=== PATIENT | female | born 1940 | race Caucasian/White ===

== ENCOUNTER 2017-11-11 16:58 | Inpatient (IN) | payer OTHER ==
[~2017-11-11] VITALS: Ht 162.6 cm; Wt 114.4 kg
[~2017-11-11 16:58] MED LIST: AMITRIPTYLINE H25 M2 PO; AMITRIPTYLINE25 MG PO; AMITRIPTYLINE50 MG PO; ASMANEX TW0.22 MG/A1 INH; ATENOLOL100 MG PO; ATENOLOL50 MG PO; CENTRUM SILVER1 EAC3 PO; COMPAZINE PO; COMPAZINE10 M1 PO; COMPAZINE10 MG PO; CYANOCOBAL1000 MCG/2 IM; DULERA 100 MCG/13 GM INH; K-TAB10 MEQ PO; LEVOTHYROXINE0.05 MG PO; LEVOTHYROXINE175 MCG PO; MAGNESIUM OXID400 M1 PO; MAGOX 400241.3 MG PO; POTASSIUM CHLO10 MEQ PO; PRILOSEC OTC20 MG PO; PROAIR HFA0.09 MG/Ac INH; PROCHLORPERAZIN10 M1 PO; SPIRIVA18 MCG INH; TENORMIN50 M1 PO; Tenormin PO; VITAMIN D34000 UNIT PO; ZOFRAN4 M1 SL
[2017-11-11 17:38] LABS: ABSOLUTE BASOPHIL COUNT 0.1 /CUMM (0.0-0.2); ABSOLUTE EOSINOPHIL COUNT 0 /CUMM (0.0-0.7); ABSOLUTE GRANULOCYTE CT 7.7 /CUMM (1.4-6.5); ABSOLUTE LYMPH COUNT 2.1 /CUMM (1.2-3.4); ABSOLUTE MONOCYTE COUNT 0.8 /CUMM (0.10-0.60); BASOPHIL % 0.5 % (0.0-2.0); EOSINOPHIL % 0.1 % (0-5); GRANULOCYTE % 71.7 % (42.2-75.2); MEAN CORPUSCULAR HGB 25.4 PG (27.0-31.0); MEAN CORPUSCULAR HGB CONC 32.7 G/DL (33.0-37.0); MEAN CORPUSCULAR VOLUME 77.9 FL (81.0-99.0); MEAN PLATELET VOLUME 9.2 FL (7.4-10.4); PLATELET COUNT 313 /CUMM (130-400); RBC DISTRIBUTION WIDTH 15.8 % (11.5-14.5); RED BLOOD CELL CT 5.65 /CUMM (4.20-5.40); WHITE BLOOD CELL COUNT 10.7 /CUMM (4.8-10.8)
--- NOTE | 2017-11-11 17:45 | ED AMS/SEIZURE/WEAK/DIZZY ---
History of Present Illness General Chief Complaint: Syncope and Near-Syncope Stated Complaint: BIBA FOR FALL WITH SYNCOPE Source: patient, family, old records, EMS Exam Limitations: no limitations Vital Signs & Intake/Output Vital Signs & Intake/Output Vital Signs Date Time Temp Pulse Resp B/P B/P Pulse O2 O2 Flow FiO2 Mean Ox Delivery Rate 11/11 1822 117 15 107/58 95 Nasal 2.0L Cannula 11/11 1748 95 Room Air Room Air 11/11 1716 96.3 100 20 74/47 93 Room Air Room Air Allergies Coded Allergies: No Known Allergies (11/11/17) Reconcile Medications Amitriptyline HCl 25 MG TABLET 1 TAB PO QPM CYCLICAL VOMITING (Reported) Atenolol (Tenormin) 50 MG TABLET 1.5 TAB PO BID HEART (Reported) Cholecalciferol (Vitamin D3) (Vitamin D3) 4,000 UNIT CAPSULE 1 CAP PO DAILY SUPPLEMENT (Reported) Cyanocobalamin (Vitamin B-12) (Cyanocobalamin Injection) 1,000 MCG/ML VIAL 1 ML IM Q30D SUPPLEMENT (Reported) Levothyroxine Sodium 175 MCG TABLET 1 TAB PO DAILY THYROID (Reported) Magnesium Oxide 400 MG TABLET 1 TAB PO DAILY SUPPLEMENT (Reported) Mometasone/Formoterol (Dulera 100 Mcg/5 Mcg Inhaler) 100 MCG-5 MCG/ACTUATION HFA.AER.AD 1 PUF INH BID SOB (Reported) Multivit-Min/FA/Lycopen/Lutein (Centrum Silver Tablet) 0.4 MG-300 MCG-250 MCG TABLET 1 TAB PO DAILY SUPPLEMENT (Reported) Prochlorperazine Maleate (Compazine) 10 MG TABLET 1 TAB PO TID PRN NAUSEA Tiotropium [place] (Spiriva) 18 MCG CAP.W.DEV 1 CAP INH DAILY SOB (Reported) Triage Note: PT BIBA FROM HOME FOR 2 WITNESSED SYNCOPAL EPISODES BY EMS. PT HAS HX OF CYCLIC VOMITING SYNDROME AND HAS HAD POOR PO INTAKE WITH VOMITING X A COUPLE OF DAYS AND A COUPLE DAYS OF DIARRHEA WELL. DENIES BLOOD IN STOOL. PT ARRIVES, PALE, DIAPHORETIC, A/O X 3 AND HYPOTENSIVE. DENIES ABD PAIN OR NAUSEA AT THIS TIME. INITIALLY FOR EMS, PT HAD HEART RATE OF 160'S AFIB, WHICH THEN CAME DOWN TO 130'S AFTER 500 ML OF NS IV. PT 118 AFIB ON BLADE BALANCER. Triage Nurses Notes Reviewed? yes Onset: Just prior to arrival Duration: day(s):, continues in ED, intermittent Timing: recent history Injury Environment: home Severity: severe Modifying Factors: Improves With: immobilization, rest. Worsens With: movement. LMP (ages 10-50): post menopausal : No Patient currently breastfeeds: No HPI: 1 week prior to admission patient reports recurrence of cyclic vomiting syndrome with associated diarrhea anorexia and progressive weakness. Over several hours prior to admission her weakness became severe and she collapsed 2 times without injury. The second time she loss consciousness for short period of time. She denies fever chills chest pain cough shortness of breath headache dysuria rash bleeding. Past History Travel History Traveled to [place] past 21 day No Medical History Any Pertinent Medical History? see below for history Neurological: NONE EENT: NONE Cardiovascular: TACHY ARRHYTHMIA Respiratory: asthma Gastrointestinal: CYCLIC VOMITING SYNDROME DIVERTICULOSIS Hepatic: cholelithiasis Renal: NONE Musculoskeletal: NONE Psychiatric: NONE Endocrine: hypoparathyroidism, hypothyroidism Blood Disorders: anemia Cancer(s): NONE RESIN MIXER/Reproductive: NONE Other Medical Hx: section x2, hysterectomy, cholecystectomy, gastric bypass. Hypothyroidism, tachy arrhythmia, macular degeneration, cataracts, congenital esotropia, cyclic vomiting syndrome, hypocalcemia, hyperparathyroidism, hiatal hernia, asthma, diverticulosis. Iron deficiency anemia. History of MRSA: No History of VRE: No History of CDIFF: No Tetanus Vaccine: 02/22/14 Surgical History Surgical History: cholecystectomy, , hysterectomy, GASTRIC BYPASS Psychosocial History Who do you live with Spouse Services at Home None What is your primary language Sri [place]ankan Tobacco Use: Never used ETOH Use: denies use Illicit Drug Use: denies illicit drug use Family History Family History, If Any: BROTHER FH: lung cancer FATHER, , Age 60+. FH: CHF (congestive heart failure) FH: diabetes mellitus Hx Contributory? No Review of Systems Review of Systems Constitutional: Reports: see HPI, weakness. EENTM: Reports: no symptoms. Respiratory: Reports: no symptoms. Cardiovascular: Reports: no symptoms. GI: Reports: see HPI, diarrhea, nausea, vomiting. Genitourinary: Reports: no symptoms. Musculoskeletal: Reports: no symptoms. Skin: Reports: no symptoms. Neurological/Psychological: Reports: no symptoms. Hematologic/Endocrine: Reports: no symptoms. Immunologic/Allergic: Reports: no symptoms. All Other Systems: Reviewed and Negative Physical Exam Physical Exam General Appearance: well developed/nourished, alert, awake, moderate distress, obese Head: atraumatic, normal appearance Eyes: Bilateral: normal appearance, PERRL, EOMI. Ears, Nose, Throat: normal pharynx, dry mucous membranes Neck: normal inspection, supple, full range of motion, no midline tenderness Respiratory: normal breath sounds, chest non-tender, no respiratory distress, quiet respiration, lungs clear Cardiovascular: normal peripheral pulses, tachycardia, irregularly irregular, norml femoral pulses equa Peripheral Pulses: 4+ carotid (R), 4+ carotid (L) Gastrointestinal: soft, non-tender, no organomegaly, abnormal bowel sounds Back: normal inspection, normal range of motion, no vertebral tenderness Extremities: normal range of motion, no ligament instability Neurologic/Psych: no motor/sensory deficits, awake, alert, oriented x 3, normal mood/affect, 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 Skin: intact, normal color, warm/dry Lymphatic: no anterior cervical myles Core Measures ACS in differential dx? No CVA/TIA Diagnosis No Sepsis Present: No Sepsis Focused Exam Completed? No Progress Differential Diagnosis: dehydration, electrolyte imbalance Plan of Care: Orders Procedure Date/time Status Clear Liquid Diet 11/12 B Active LACTIC ACID 11/11 2008 Active Patient Data 11/11 1850 Active EKG 11/11 1832 Active OXYGEN SETUP (GEN) 11/11 1826 Active Saline Lock 11/11 182 Active Admit to inpatient 11/11 182 Active Vital Signs 11/11 1827 Active Activity/Ambulation 11/11 182 Active Code Status 11/11 1827 Active TROPONIN LEVEL 11/11 1709 Complete MAGNESIUM 11/11 1709 Complete LIPASE 11/11 1709 Complete LACTIC ACID 11/11 1709 Complete COMPREHENSIVE METABOLIC PANEL 11/11 1709 Complete CBC WITHOUT DIFFERENTIAL 11/11 170 Complete EKG 11/11 1705 Active Current Medications Sig/Roxanne Start time Last Medication Dose Stop Time Status Admin Magnesium Sulfate 1 GM ONCE ONE 11/11 1845 AC (Mag Sulfate in D5) 11/11 2244 Dextrose/Water 100 ML (D5W) Laboratory Tests 11/11/17 1729: Anion Gap 13, Estimated GFR > 60, BUN/Creatinine Ratio 22.9, Glucose 151 H, Lactic Acid 2.7 H, Calcium 8.3 L, Magnesium 1.3 L, Total Bilirubin 0.6, AST 43 H, ALT 54 H, Alkaline Phosphatase 61, Troponin I 0.02, Total Protein 6.5, Albumin 3.4 L, Globulin 3.1, Albumin/Globulin Ratio 1.1, Lipase 54, CBC w Diff NO MAN DIFF REQ, RBC 5.65 H, MCV 77.9 L, MCH 25.4 L, MCHC 32.7 L, RDW 15.8 H, MPV 9.2, Gran % 71.7, Lymphocytes % 20.0 L, Monocytes % 7.7, Eosinophils % 0.1, Basophils % 0.5, Absolute Granulocytes 7.7 H, Absolute Lymphocytes 2.1, Absolute Monocytes 0.8 H, Absolute Eosinophils 0, Absolute Basophils 0.1 Initial ED EKG: AFIB, nonspecific ST T wave chg Prior EKG: changed Rhythm Strip: atrial fibrillation Departure Departure Time of Disposition: 1830 Disposition: STILL A PATIENT Condition: Stable Clinical Impression Primary Impression: Cyclic vomiting syndrome Secondary Impressions: Dehydration, Diarrhea, Hypokalemia, Hypomagnesemia, Lactic acidosis Referrals: Juliet BARRIOS,Gustavo Ruiz (PCP/Family) Departure Forms: Customer Survey General Discharge Information Admission Note Spoke With: Yann Khan MD Documentation of Exam: Documentation of any treatments & extenuating circumstances including Concerns Regarding Discharge (functional status, medication knowledge or non-compliance, living conditions, etc.) that warrant an admission rather than observation: IV hydration advance diet cardiac monitoring electrolyte replacement serial lab exam medication adjustment GI evaluation continuing care discharge planning. Critical Care Note Critical Care Note Critical Care Time: 30-74 min (45)
--- NOTE | 2017-11-11 18:51 | History & Physical ---
Shaquille BARRIOS,[facility] 11/11/17 979: General Information and HPI MD Statement: I have seen and personally examined MORENA VILLEGAS and documented this H&P. The patient is a 76 year old F who presented with a patient stated chief complaint of 2 syncopal episodes. Source of Information: patient, family, old records Exam Limitations: no limitations History of Present Illness: Ms Villegas is a 76-year-old woman with past medical history of hypothyroidism, tachycardia arrhythmias (atrial), cyclic vomiting syndrome, GERD, and iron deficiency anemia who presented to the emergency department on 11/11/2017 after experiencing 3 syncopal episodes. Patient states that since Tuesday11/08/2017 she has been feeling of her baseline. States that she has had abdominal discomfort and episodes of diarrhea. She States that her diahrrhea is likely due to hotdogs which she ate on Tuesday evening. This morning when she she had 4 episodes of diarrhea. Stool was been described as nonbloody and non-mucus. It was after the fourth bowel movement that she had her first syncopal episode. Her who was present at home heard a loud "bang" but was unable to get to the bathroom. EMS was subsequently called and found her on the floor. When attempting to help her stand she was placed her on a bed and while checking vital signs were being checked she had 2 further episodes of syncope. She has not been exposed to any ill contacts or had been exposed to any recent antibiotics. She normally ambulates independently however today feeling weak had to use a walker Patient denied any fever, chills, chest pain, chest discomfort dyspnea on exertion, orthopnea or urinary frequency or discomfort. She also endorsed one episode of vomiting after having tea and toast on 2017. Patient was accompanied with her and son. Son reports that the patient has poor dietary compliance. Patient's primary care physician is Dr. Chung Patient's wireless sales expert is Dr. Sheth. Patient's sack sewer is Dr. Draper Allergies/Medications Allergies: Coded Allergies: No Known Allergies (11/11/17) Home Med list Amitriptyline HCl 25 MG TABLET 1 TAB PO QPM CYCLICAL VOMITING (Reported) Atenolol (Tenormin) 50 MG TABLET 1 TAB PO BID HEART (Reported) Cholecalciferol (Vitamin D3) (Vitamin D3) 4,000 UNIT CAPSULE 1 CAP PO DAILY SUPPLEMENT (Reported) Cyanocobalamin (Vitamin B-12) (Cyanocobalamin Injection) 1,000 MCG/ML VIAL 1 ML IM Q30D SUPPLEMENT (Reported) Levothyroxine Sodium 175 MCG TABLET 1 TAB PO DAILY THYROID (Reported) Magnesium Oxide 400 MG TABLET 1 TAB PO DAILY SUPPLEMENT (Reported) Mometasone/Formoterol (Dulera 100 Mcg/5 Mcg Inhaler) 100 MCG-5 MCG/ACTUATION HFA.AER.AD 1 PUF INH BID SOB (Reported) Multivit-Min/FA/Lycopen/Lutein (Centrum Silver Tablet) 0.4 MG-300 MCG-250 MCG TABLET 1 TAB PO DAILY SUPPLEMENT (Reported) Prochlorperazine Maleate (Compazine) 10 MG TABLET 1 TAB PO TID PRN NAUSEA Tiotropium [place] (Spiriva) 18 MCG CAP.W.DEV 1 CAP INH DAILY SOB (Reported) Compliance With Home Meds: UNKNOWN Past History Travel History Traveled to [place] past 21 day No Medical History Neurological: NONE EENT: NONE Cardiovascular: TACHY ARRHYTHMIA Respiratory: asthma Gastrointestinal: CYCLIC VOMITING SYNDROME DIVERTICULOSIS Hepatic: cholelithiasis Renal: NONE Musculoskeletal: NONE Psychiatric: NONE Endocrine: hypoparathyroidism, hypothyroidism Blood Disorders: anemia Cancer(s): NONE DIRECTOR AMBULATORY/Reproductive: NONE Other Medical Hx: section x2, hysterectomy, cholecystectomy, gastric bypass. Hypothyroidism, tachy arrhythmia, macular degeneration, cataracts, congenital esotropia, cyclic vomiting syndrome, hypocalcemia, hyperparathyroidism, hiatal hernia, asthma, diverticulosis. Iron deficiency anemia. History of MRSA: No History of VRE: No History of CDIFF: No Tetanus Vaccine: 02/22/14 Surgical History Surgical History: cholecystectomy, , hysterectomy, GASTRIC BYPASS Past Family/Social History Family History Relations & Conditions if any BROTHER FH: lung cancer FATHER, , Age 60+. FH: CHF (congestive heart failure) FH: diabetes mellitus Psychosocial History Where do you live? Home Who Do You Live With? spouse, child Services at Home: None Primary Language: Nigerian Smoking Status: Never Smoked ETOH Use: denies use Illicit Drug Use: denies illicit drug use Functional Ability ADLs Independent: dressing, eating, toileting, bathing. Ambulation: independent IADLs Independent: shopping, housework, finances, food prep, telephone, transportation , medication admin. Review of Systems Review of Systems Constitutional: Reports: see HPI. Exam & Diagnostic Data Last 24 Hrs of Vital Signs/I&O Vital Signs Date Time Temp Pulse Resp B/P B/P Pulse O2 O2 Flow FiO2 Mean Ox Delivery Rate 11/11 1822 117 15 107/58 95 Nasal 2.0L Cannula 11/11 1748 95 Room Air Room Air 11/11 1716 96.3 100 20 74/47 93 Room Air Room Air Physical Exam General Appearance Alert, Oriented X3, Cooperative Skin No Rashes Skin Temp/Moisture Exam: Warm/Dry HEENT Mucous Membranes Dry Cardiovascular Normal S1, Normal S2, No Murmurs, Irregularly Irregular Lungs Normal Air Movement, Expiratory crackles noted on left lower lung base Abdomen Normal Bowel Sounds, Soft, No Tenderness Neurological Normal Speech, Strength at 5/5 X4 Ext, Normal Tone, Cranial Nerves 3-12 NL Extremities No Clubbing, No Edema Rectal Guiac Negative Last 24 Hrs of Labs/[place]: Laboratory Tests 11/11/17 1729: Anion Gap 13, Estimated GFR > 60, BUN/Creatinine Ratio 22.9, Glucose 151 H, Lactic Acid 2.7 H, Calcium 8.3 L, Magnesium 1.3 L, Total Bilirubin 0.6, AST 43 H, ALT 54 H, Alkaline Phosphatase 61, Troponin I 0.02, Total Protein 6.5, Albumin 3.4 L, Globulin 3.1, Albumin/Globulin Ratio 1.1, Lipase 54, CBC w Diff NO MAN DIFF REQ, RBC 5.65 H, MCV 77.9 L, MCH 25.4 L, MCHC 32.7 L, RDW 15.8 H, MPV 9.2, Gran % 71.7, Lymphocytes % 20.0 L, Monocytes % 7.7, Eosinophils % 0.1, Basophils % 0.5, Absolute Granulocytes 7.7 H, Absolute Lymphocytes 2.1, Absolute Monocytes 0.8 H, Absolute Eosinophils 0, Absolute Basophils 0.1 Diagnostic Data EKG Results A Fib Rate 111 QTC 489 Assessment/Plan Assessment: Ms Villegas is a 76-year-old woman with past medical history of hypothyroidism, tachycardia arrhythmias (atrial), cyclic vomiting syndrome, GERD, and iron deficiency anemia who presented to the emergency department on 11/11/2017 after experiencing 3 syncopal episodes. She will be admitted to the telemetry service and be managed for the following problems. #Syncopal episode query vasovagal #Hypotension (likely due to GI losses from diarrhea) #New Onset A fib #Acute gastroenteritis #Rule out ACS #Transaminitis related to hypotension #Electrolyte derangements #Lactic acidosis due to hypotension. Admit patient to telemetry. Serial troponins and EKG. Formal cardiology consultation in a.m., admitting resident spoke with Dr. Guerra, questioning weather the patient needs to be anticoagulated given CHADVASC of 4 and what looks like new onset A. fib. IV heparin per PTT protocol for anticoagulation. Will likely be changed to Eliquis prior to discharge. TSH and free T4, Defer to cardiology whether echocardiogram will need to be repeated. Chest x-ray to rule out acute pulmonary pathology. Replete electrolytes to ensure potassium level of 4, magnesium level of 2. Orthostatic vital signs. Continue levothyroxine. Maintain fall precautions. TRC nebs. CBC, BEP, AST, ALT in a.m. If enzymes still remain elevated may consider abdominal ultrasound. PT once patient is more stable. Inform primary care physician and GI in a.m. Heart healthy diet. DVT prophylaxis with ALPS/IV Heparin Patient is DNR/DNI. As Ranked By This Provider Problem List: 1. Vomiting and diarrhea 2. Cyclic vomiting syndrome 3. Ventricular premature beats Core Measures/Misc (02/06) Acute Coronary Syndrome ACS Diagnosis: No Congestive Heart Failure Congestive Heart Failure Diagnosis No Cerebrovascular Accident CVA/TIA Diagnosis: No VTE (View Protocol) VTE Risk Factors Age>40 No Mechanical VTE Prophylaxis d/t N/A MechProphylax Ordered No VTE Pharm Prophylaxis d/t NA PharmProphylax ordered Sepsis (View protocol) Sepsis Present: No If YES complete Sepsis Event Note If YES complete Sepsis Event Note Bill BARRIOS, [facility] 11/12/17 0043: Core Measures/Misc (02/06) Sepsis (View protocol) If YES complete Sepsis Event Note If YES complete Sepsis Event Note Attending MD Review Statement Attending Statement Attending MD Statement: examined this patient, discuss w/resident/PA/TREATING ENGINEER HELPER, agreed w/resident/PA/TREATING ENGINEER HELPER, discussed with family, reviewed images, amended to note Attending Assessment/Plan: 76 yo F with h/o atrial tachycardia, asthma, cyclic vomiting syndrome associated with hypokalemia, hypothyroidism, SHIVA, hyperparathyroidism, gastric bypass, is here for evaluation of 3 day h/o nausea, nonbloody vomiting and wattery nonbloody diarrhea that seem to have been occurred after she ate 'hot dogs'. She felt extremely weak, and had a syncopal episode while in the bathroom. When EMS arrived, patient had 2 more syncopal episodes. Her BP was noted to be hypotensive and was given fluid by EMS. Patient reports poor PO intake, denies recent antibiotic exposure or sick contacts. She denies chest pain, dyspnea or palpitations. With regards to her cyclic vomiting syndrome she has an episode once every 6 months and presentation is almost similar to this, however she rarely if ever has diarrhea, so she attributes her current symptoms to the 'hot dogs'. Vitals: afebrile, HR 100-120's, BP 74/47 --> 107/58 --> 96/68 --> 100/70, sats 97% on 2L. Exam: AAO, right eye poor eyesight due to macular degeneration, dry mucosa, Neck supple, Chest basilar crackles+, Heart S1S2 irregularly irregular, LE: no edema. Labs: no leukocytosis, Na 131, K 3.1, glucose 151, lactic acid 2.7, Mag 1.3, AST 43, ALT 54, trop neg. CXR: unremarkable exam. EKG: atrial fibrillation @ 111, PVC's, Qtc 489. Echo (2017): EF 55%, mild left atrial dilatation. Assessment and plan: 1. Syncopal episode 2. Hypotension 3. Acute gastroenteritis vs probable exacerbation of cyclic vomiting syndrome 4. New onset atrial fibrillation 5. History of atrial tachycardia on atenolol 6. Hypokalemia and hypomagnesemia 7. Transaminitis related to hypotension 8. Lactic acidosis - Admit patient to telemetry. - Watch for arrhythmias - Check orthstats - Patient has a h/o atrial tachycardia which is controlled with atenolol, however today she appears to be in atrial fibrillation of unclear duration. Given her high MISSAEL score, we will anticoagulate with IV heparin per PTT protocol. - IV hydration with potassium supplementation, HR seems to be improving with IV fluids - Resume atenolol when able to - Cardio consult (Dr. Sheth) - Serial EKG and troponin - Obtain echo - Check TSH, free T4, HbA1c - Check urinalysis - Replete electrolytes to keep Mag > 2.0 and K > 4.0 - Recheck BEP at 11 pm to trend electrolyte levels - Trend lactic acid - Clear liquid diet, advance diet as tolerated, anti-emetics - Check stool studies, if persistent diarrhea would obtain CT abd/pelvis - Recheck liver enzymes after adequate hydration. - Resume amitriptyline, synthroid and inhalers - Eventual PT DVT ppx IV heparin. DNR/I.
--- NOTE | 2017-11-11 21:55 | RADIOLOGY REPORT ---
EXAMINATION: XR PORTABLE CHEST CLINICAL INFORMATION: Crackles at lung bases. COMPARISON: Chest x-ray 05/16/2017 TECHNIQUE: Portable frontal view of the chest was obtained. 8:08 PM FINDINGS: Exam is apical lordotic in projection. No significant abnormality is noted involving the heart, lungs, mediastinum, bony thorax or soft tissues. IMPRESSION: Unremarkable examination.
[2017-11-11 23:13] VITALS: BP 116/68
--- NOTE | 2017-11-12 00:44 | Admission Certification ---
Admission Certification Certification Statement - As attending physician, I certify that at the time of - admission, based on clinical presentation, severity of - symptoms, need for further diagnostic testing and - therapeutic interventions, and risk of adverse outcomes - without in-hospital treatment, in my clinical assessment, - this patient requires an acute hospital stay for a minimum - of two nights or longer. I have also considered psychsocial - factors such as support system, advanced age, financial - issues, cognitive issues, and failed out-patient treatments, - past re-admission history, safety of patient, and lack of - compliance as applicable. Specific rationale supporting this admission is: Syncope, New onset atrial fibrillation, hypotension, acute gastroenteritis.
[2017-11-12 02:30] VITALS: BP 106/78
[2017-11-12 02:50] LABS: PTT 42 SEC (25-37)
[2017-11-12 07:04] VITALS: BP 88/60
--- NOTE | 2017-11-12 08:40 | PN- Housestaff ---
JoshArlen Tj Ceballos 11/12/17 0838: Subjective Follow-up For: 1. Syncopal episode 2. Hypotension 3. Acute gastroenteritis vs probable exacerbation of cyclic vomiting syndrome 4. New onset atrial fibrillation 5. History of atrial tachycardia on atenolol 6. Hypokalemia and hypomagnesemia 7. Transaminitis related to hypotension 8. Lactic acidosis Subjective: Patient is pending transfering to ICU. Review of Systems Constitutional: Reports: see HPI. Objective Last 24 Hrs of Vital Signs/I&O Vital Signs Date Time Temp Pulse Resp B/P B/P Pulse O2 O2 Flow FiO2 Mean Ox Delivery Rate 11/12 0835 134 82/50 11/12 0704 97.3 109 18 88/60 98 Room Air 11/12 0230 106/78 11/11 2313 97.4 64 20 116/68 97 11/11 2300 96 Nasal 2.0L Cannula 11/11 2223 100/70 11/11 2212 97.2 105 20 99/63 95 Nasal 2.0L Cannula 11/11 2120 119 20 96/68 97 Nasal 2.0L Cannula 11/11 2016 80/52 11/11 2016 97.7 117 20 83/56 97 Room Air 11/11 2010 97.7 117 20 83/56 11/11 1822 117 15 107/58 95 Nasal 2.0L Cannula 11/11 1748 95 Room Air Room Air 11/11 1716 96.3 100 20 74/47 93 Room Air Room Air Intake & Output 11/12 1600 11/12 0800 11/12 0000 Intake Total 1565 2000 Output Total 225 Balance 1340 2000 Intake, IV 1325 2000 Intake, Oral 240 Number 1 Bowel Movements Output, Urine 225 Patient 111.329 kg Weight Weight Bed scale Measurement Method Physical Exam General Appearance: Alert, Oriented X3, Cooperative, No Acute Distress HEENT: Atraumatic, PERRLA Neck: Supple, No JVD Lungs: Normal Air Movement, ? expiratory crackles noted on left lower lung base Abdomen: Normal Bowel Sounds, Soft, No Tenderness Neurological: Normal Speech, Strength at 5/5 X4 Ext Extremities: No Edema, Normal Pulses, No Tenderness/Swelling Current Medications: Current Medications Sig/Roxanne Start time Last Medication Dose Route Stop Time Status Admin Amitriptyline HCl 25 MG QPM 11/12 2100 AC PO Atenolol 50 MG BID 11/11 2100 AC PO Budesonide/ 2 PUF BID 11/12 0900 AC Formoterol Fumarate INH Budesonide/ 2 PUF BID 11/12 0900 CAN Formoterol Fumarate INH Digoxin 0.5 MG ONCE ONE 11/13 1999 DC IV 11/12 2000 Digoxin 0.25 MG ONCE ONE 11/13 1999 AC IV 11/12 2000 Digoxin 0.25 MG ONCE ONE 11/12 1400 AC IV 11/12 1401 Digoxin 0.5 MG ONCE ONE 11/12 0815 DC 11/12 IV 11/12 0816 0835 Heparin Sodium 25,000 UNIT Q24H 11/11 2030 AC 11/11 (Porcine) IV 205 Sodium Chloride 500 ML Levothyroxine Sodium 0.175 MG DAILY AC 11/12 0700 DC PO Levothyroxine Sodium 0.175 MG DAILY AC 11/12 0700 CAN PO Magnesium Sulfate 1 GM ONCE ONE 11/12 0415 DC 11/12 Dextrose/Water 100 ML IV 11/12 0814 0430 Magnesium Sulfate 1 GM ONCE ONE 11/12 0400 CAN IM 11/12 0401 Magnesium Sulfate 1 GM ONCE ONE 11/11 1845 DC 11/11 Dextrose/Water 100 ML IV 11/11 2244 1912 Potassium Chloride 40 MEQ ONCE ONE 11/12 0900 CAN Dextrose/Water 1,000 ML IV 11/12 1859 Potassium Chloride 40 MEQ ONCE ONE 11/12 0830 CAN IV 11/12 0831 Potassium Chloride 40 MEQ Q10H 11/12 0830 AC 11/12 Dextrose/Sodium 1,000 ML IV 0845 Chloride Potassium Chloride 40 MEQ ONCE ONE 11/12 0800 CAN N/A 1 UNIT IV 11/12 1759 Potassium Chloride 20 MEQ ONCE ONE 11/12 0800 AC 11/12 Dextrose/Sodium 1,000 ML IV 11/12 0859 0816 Chloride Potassium Chloride 40 MEQ ONCE ONE 11/12 0800 DC Dextrose/Water 1,000 ML IV 11/12 1759 Potassium Chloride 40 MEQ ONCE ONE 11/12 0530 DC IV 11/12 0531 Potassium Chloride 40 MEQ ONCE ONE 11/12 0400 CAN IV 11/12 0401 Potassium Chloride 40 MEQ Q10H 11/11 1945 DC 11/12 Sodium Chloride 1,000 ML IV 0743 Potassium Chloride 10 MEQ ONCE ONE 11/11 1845 DC 11/11 IV 11/11 1846 1912 Sodium Chloride 1,000 ML BOLUS ONE 11/11 2030 DC 11/11 IV 11/11 Sodium Chloride 1,000 ML ONCE ONE 11/11 1945 CAN IV 11/12 0904 Sodium Chloride 1,000 ML BOLUS ONE 11/11 1715 DC 11/11 IV 11/11 181 1857 Sodium Chloride 1,000 ML BOLUS ONE 11/11 1715 DC 11/11 IV 11/11 181 1745 Tiotropium [place] 1 PUF DAILY 11/12 0900 AC INH Last 24 Hrs of Lab/[place] Results Last 24 Hrs of Labs/Mics: Laboratory Tests 11/12/17 0845: Magnesium Pending 11/12/17 0845: Hemoglobin A1c Pending, CBC w Diff Pending, WBC Pending, RBC Pending, Hgb Pending, Hct Pending, MCV Pending, MCH Pending, MCHC Pending, RDW Pending, Plt Count Pending, MPV Pending 11/12/17 0838: Sodium Pending, Potassium Pending, Chloride Pending, Carbon Dioxide Pending, Anion Gap Pending, BUN Pending, Creatinine Pending, BUN/Creatinine Ratio Pending , Total Bilirubin Pending, Direct Bilirubin Pending, AST Pending, ALT Pending, Alkaline Phosphatase Pending, Troponin I Pending, Total Protein Pending, Albumin Pending 11/12/17 0800: Troponin I Cancelled 11/12/17 0600: CBC w Diff Cancelled, WBC Cancelled, RBC Cancelled, Hgb Cancelled, Hct Cancelled , MCV Cancelled, MCH Cancelled, MCHC Cancelled, RDW Cancelled, Plt Count Cancelled, MPV Cancelled 11/12/17 0457: Urinalysis MANY H, Urine Color YEL, Urine Clarity CLEAR, Urine pH 6.5, Ur Specific [place] <= 1.005, Urine Protein NEG, Urine Ketones NEG, Urine Nitrite NEG, Urine Bilirubin NEG, Urine Urobilinogen 0.2, Ur Leukocyte Esterase SMALL H , Ur Microscopic SEDIMENT EXAMINED, Urine WBC 3-5 H, Ur Epithelial Cells MOD H , Urine Bacteria MOD H, Micro UA Comment MORE INFO: H, Urine Hemoglobin NEG, Urine Glucose NEG 11/12/17 0210: Anion Gap 9, Estimated GFR > 60, BUN/Creatinine Ratio 21.4, Magnesium 1.6, Troponin I 0.10, APTT 42 H 11/11/17 2000: Sodium Cancelled, Potassium Cancelled, Chloride Cancelled, Carbon Dioxide Cancelled, Anion Gap Cancelled, BUN Cancelled, Creatinine Cancelled, BUN/ Creatinine Ratio Cancelled 11/11/171956: Lactic Acid 2.1 11/11/171728: Anion Gap 13, Estimated GFR > 60, BUN/Creatinine Ratio 22.9, Glucose 151 H, Lactic Acid 2.7 H, Calcium 8.3 L, Magnesium 1.3 L, Total Bilirubin 0.6, AST 43 H, ALT 54 H, Alkaline Phosphatase 61, Troponin I 0.02, Total Protein 6.5, Albumin 3.4 L, Globulin 3.1, Albumin/Globulin Ratio 1.1, Lipase 54, TSH 3.220, Free T4 1.95, CBC w Diff NO MAN DIFF REQ, RBC 5.65 H, MCV 77.9 L, MCH 25.4 L, MCHC 32.7 L, RDW 15.8 H, MPV 9.2, Gran % 71.7, Lymphocytes % 20.0 L, Monocytes % 7.7, Eosinophils % 0.1, Basophils % 0.5, Absolute Granulocytes 7.7 H, Absolute Lymphocytes 2.1, Absolute Monocytes 0.8 H, Absolute Eosinophils 0, Absolute Basophils 0.1 Microbiology 11/13 643 STOOL: Clostridium difficile Toxin A & B - RECD 11/13 643 STOOL: Stool Culture - RECD 11/12 232 STOOL: Cryptosporidium Antigen - COLB 11/12 232 STOOL: Giardia Antigen (JERICHO) - COLB Assessment/Plan Assessment: Ms. Villegas is a 76yo F w/ PMH of atrial tachycardia, asthma, cyclic vomiting syndrome, hypokalemia, hypothyroidism, SHIVA, hyperparathyroidism, Hx of gastric bypass presented for nausea/nonbloody vomiting/watery nonbloody diarrhea 3 days , after she consumed "hotdogs". Patient had been feeling weakness, and had a unwitnessed syncope episode while in the bathroom, however. Patient without hitting her head or had any trauma to skin/soft tissue/bone, and later on she had additional 2 more possible syncope episodes on her bed when EMS arrived at bedside to check on her. Patient's blood pressure was noted to be hypotensive, given fluid by EMS, in the ER, and prior to transferring to ICU. Patient also reported poor p.o. intake, however denied any recent antibiotic use/sick contacts. Patient also denies any chest pain/dyspnea/palpitations. Her cyclic vomiting syndrome she has an episode once every 6 months and presentation is almost similar to this, however she rarely had diarrhea with cyclic vomiting syndrome, and attributed her current symptoms more to the "hotdogs". Patient's also ate the same hot dog, however remain asymptomatic. On presentation to ER Vitals: afebrile, HR 100-120's, BP 74/47 -> 100/70, sats 97% on 2L. Labs: no leukocytosis, Na 131, K 3.1, glucose 151, lactic acid 2.7 -> 2.1, Mag 1.3, AST 43, ALT 54, trop 0.02 -> 0.10. CXR: unremarkable exam. EKG: atrial fibrillation @ 111, PVC's, Qtc 489. Echo (2017): EF 55%, mild left atrial dilatation. Patient was admitted to telemetry, currently being transferred to ICU for close monitoring of blood pressure. Problem list 1. Syncopal episodes 2. Hypotension 3. Acute gastroenteritis and/or cyclic vomiting syndrome 4. New onset atrial fibrillation, now on heparin 5. History of atrial tachycardia on atenolol, currently on hold due to BP 6. Hypokalemia and hypomagnesemia 7. Mild Transaminitis related to hypotension 8. Lactic acidosis, resolving -Currently being transferred to ICU for close monitoring of blood pressures, patient may need central line/A line, family awared per house staff. - Close monitoring for arrhythmias -Orthostatics positive with supine SBP in 120s, heart rate <100, but SBP decreased to 90s upon standing with increased heart rate to 140s. -Given patient's high [id number] score of 3, (Age >74, Female), patient is put on anticoagulation with IV heparin per PTT protocol. Will continue monitor. - IV hydration with potassium supplementation + oral supplement, will recheck K today as patient is now on Digoxin, a risk factor of digoxin toxicity if being hypokalemia. - Hold Atenolo for now and resume per cardio - Pending Cardio consult by Dr. Guerra (Patient saw Dr. Sheth in outpt) - Serial EKG and troponin had trended up to 0.11, will trend again at 1300 today. - Obtain echo - TSH/T4 WNL - Pending HbA1c - UA showed questionable UTI however patient being asymptomatic/No leukocytosis/ Afebrile. will cont monitor - Replete electrolytes to keep Mag > 2.0 and K > 4.0 - Lactic acid resolved to 2.1. - Clear liquid diet, advance diet as tolerated, anti-emetics - Patient had another loose stool episode this morning, if persistent diarrhea would obtain CT abd/pelvis - Recheck liver enzymes after adequate hydration. - Resumed amitriptyline, synthroid and inhalers - PT eval once back to Floor DVT ppx IV heparin. Clear Liquid Diet DNR/I. Son is the patient's POA Problem List: 1. Acute electrocardiogram changes 2. Cyclic vomiting syndrome Pain Ratin Pain Location: N/A Pain Goal: Remain pain free Pain Plan: see AP Tomorrow's Labs & Rationales: CBC/BEP Cj Montana MD 11/13/17 1434: Attending MD Review Statement Attending Statement Attending MD Statement: examined this patient, discuss w/resident/PA/CASH PROCESSING SPECIALIST, agreed w/resident/PA/CASH PROCESSING SPECIALIST, reviewed EMR data (avail) Attending Assessment/Plan: 76F PMH atrial tachycardia, asthma, cyclic vomiting syndrome associated with hypokalemia, hypothyroidism, SHIVA, hyperparathyroidism, gastric bypass admitted to ICU with intractable nausea/vomiting, profuse diarrhea, and persistent hypotension despite fluid resuscitation, found to be in new onset atrial fibrillation on admission. Patient improved after generous fluids and electrolyte replenishment. Today patient is doing well with no complaints. She was orthostatic positive. She remains in atrial fibrillation at a rate of 110. She is eating and drinking well. 1. New onset atrial fibrillation with hypotension 2. Acute gastroenteritis 3. Dehydration with hypovolemia 4. Hypokalemia (resolved) 5. Hypomagnesemia (resolved) Plan - Continue in ICU - Follow cardiology recommendations - Continue gentle IV hydration - Replete electrolytes as needed - Continue home medications, holding anti-hypertensives - DVT PPx
--- NOTE | 2017-11-12 08:54 | Event Note ---
Event Note Event Note: S: Patient is hypotensive despite aggressive fluid hydration overnight. She initially did respond well to fluids with her BP getting up to 116/68 overnight. B: This morning the telemetry team was informed that patient is hypotensive. I visited the patient who was alert and oriented x 3. She endorsed no complaints and asked for her diet to be advanced. She stated that she was feeling better. A/R: I spoke with the spray gun repairer helper valuation consultant (Dr Guerra) and relayed the information to him. It appears that she has also become tachycardic and as her heart rate has increased her BP continues to fall. It was therefore recommneded to begin the patient on Digoxin. The day team also spoke to the hospitalist and we will transfer the patient to the [facility], should the need for a central line, pressors or an amiodarone drip arise. Randall Beltran was informed.
[2017-11-12 09:00] VITALS: BP 102/60
[2017-11-12 09:14] LABS: ABSOLUTE BASOPHIL COUNT 0 /CUMM (0.0-0.2); ABSOLUTE EOSINOPHIL COUNT 0.1 /CUMM (0.0-0.7); ABSOLUTE GRANULOCYTE CT 7.1 /CUMM (1.4-6.5); ABSOLUTE LYMPH COUNT 2.4 /CUMM (1.2-3.4); BASOPHIL % 0.4 % (0.0-2.0); EOSINOPHIL % 0.7 % (0-5); GRANULOCYTE % 66.9 % (42.2-75.2); HEMATOCRIT 41.1 % (37-47); MEAN CORPUSCULAR VOLUME 78.7 FL (81.0-99.0); MEAN PLATELET VOLUME 9.4 FL (7.4-10.4); PLATELET COUNT 243 /CUMM (130-400); RBC DISTRIBUTION WIDTH 15.5 % (11.5-14.5); RED BLOOD CELL CT 5.22 /CUMM (4.20-5.40); WHITE BLOOD CELL COUNT 10.6 /CUMM (4.8-10.8)
[2017-11-12 12:00] VITALS: BP 104/70
[2017-11-12 12:33] LABS: PTT 77 SEC (25-37)
[2017-11-12 16:00] VITALS: BP 104/60
--- NOTE | 2017-11-12 16:08 | Cons- Cardiology ---
General Information and HPI Consulting Request Date of Consult: 11/12/17 Requested By: Bill BARRIOS,Yann Reason for Consult: Atrial fibrillation History of Present Illness: The patient is a 76-year-old female 2 presented after syncope. She had diarrhea for 4 days and was taking only limited p.o. intake. In the emergency department she was noted to be hypotensive and she was found to be in atrial fibrillation with rapid ventricular rate. She was also noted to have significant hypokalemia. She was treated with IV fluid and IV digoxin and her ventricular rate is now only mildly elevated. She notes intermittent palpitations. She has a history of tachycardia in the past for which she takes atenolol, however she does not recall having a history of atrial fibrillation. No chest pain. She had syncopal episodes 3 prior to admission. No fever. No chills. Allergies/Medications Allergies: Coded Allergies: No Known Allergies (11/11/17) Home Med List: Amitriptyline HCl 25 MG TABLET 1 TAB PO QPM CYCLICAL VOMITING (Reported) Atenolol (Tenormin) 50 MG TABLET 1 TAB PO BID HEART (Reported) Cholecalciferol (Vitamin D3) (Vitamin D3) 4,000 UNIT CAPSULE 1 CAP PO DAILY SUPPLEMENT (Reported) Cyanocobalamin (Vitamin B-12) (Cyanocobalamin Injection) 1,000 MCG/ML VIAL 1 ML IM Q30D SUPPLEMENT (Reported) Levothyroxine Sodium 175 MCG TABLET 1 TAB PO DAILY THYROID (Reported) Magnesium Oxide 400 MG TABLET 1 TAB PO DAILY SUPPLEMENT (Reported) Mometasone/Formoterol (Dulera 100 Mcg/5 Mcg Inhaler) 100 MCG-5 MCG/ACTUATION HFA.AER.AD 1 PUF INH BID SOB (Reported) Multivit-Min/FA/Lycopen/Lutein (Centrum Silver Tablet) 0.4 MG-300 MCG-250 MCG TABLET 1 TAB PO DAILY SUPPLEMENT (Reported) Prochlorperazine Maleate (Compazine) 10 MG TABLET 1 TAB PO TID PRN NAUSEA Tiotropium Hewett (Spiriva) 18 MCG CAP.W.DEV 1 CAP INH DAILY SOB (Reported) Current Medications: Current Medications Sig/Roxanne Start time Last Medication Dose Route Stop Time Status Admin Amitriptyline HCl 25 MG QPM 11/12 2100 AC PO Atenolol 50 MG BID 11/11 2100 AC PO Budesonide/ 2 PUF BID 11/12 0900 AC 11/12 Formoterol Fumarate INH 0935 Budesonide/ 2 PUF BID 11/12 0900 CAN Formoterol Fumarate INH Digoxin 0.5 MG ONCE ONE 11/13 1999 DC IV 11/12 2000 Digoxin 0.25 MG ONCE ONE 11/13 1999 AC IV 11/12 2000 Digoxin 0.25 MG ONCE ONE 11/12 1400 DC 11/12 IV 11/12 1401 1427 Digoxin 0.5 MG ONCE ONE 11/12 0815 DC 11/12 IV 11/12 0816 0835 Heparin Sodium 25,000 UNIT Q24H 11/11 2030 AC 11/12 (Porcine) IV 1322 Sodium Chloride 500 ML Levothyroxine Sodium 0.175 MG DAILY AC 11/12 0700 DC PO Levothyroxine Sodium 0.175 MG DAILY AC 11/12 0700 CAN PO Magnesium Sulfate 1 GM ONCE ONE 11/12 0415 DC 11/12 Dextrose/Water 100 ML IV 11/12 0814 0430 Magnesium Sulfate 1 GM ONCE ONE 11/12 0400 CAN IM 11/12 0401 Magnesium Sulfate 1 GM ONCE ONE 11/11 1845 DC 11/11 Dextrose/Water 100 ML IV 11/11 2244 1912 Potassium Chloride 40 MEQ ONCE ONE 11/12 1500 DC PO 11/12 1501 Potassium Chloride 40 MEQ ONCE ONE 11/12 1100 DC 11/12 PO 11/12 1101 1057 Potassium Chloride 40 MEQ ONCE ONE 11/12 1000 CAN PO 11/12 1001 Potassium Chloride 40 MEQ ONCE ONE 11/12 0900 CAN Dextrose/Water 1,000 ML IV 11/12 1859 Potassium Chloride 40 MEQ ONCE ONE 11/12 0830 CAN IV 11/12 0831 Potassium Chloride 40 MEQ Q10H 11/12 0830 AC 11/12 Dextrose/Sodium 1,000 ML IV 0845 Chloride Potassium Chloride 40 MEQ ONCE ONE 11/12 0800 CAN N/A 1 UNIT IV 11/12 1759 Potassium Chloride 20 MEQ ONCE ONE 11/12 0800 DC 11/12 Dextrose/Sodium 1,000 ML IV 11/12 0859 0816 Chloride Potassium Chloride 40 MEQ ONCE ONE 11/12 0800 DC Dextrose/Water 1,000 ML IV 11/12 1759 Potassium Chloride 40 MEQ ONCE ONE 11/12 0530 DC IV 11/12 0531 Potassium Chloride 40 MEQ ONCE ONE 11/12 0400 CAN IV 11/12 0401 Potassium Chloride 40 MEQ Q10H 11/11 1945 DC 11/12 Sodium Chloride 1,000 ML IV 0743 Potassium Chloride 10 MEQ ONCE ONE 11/11 1845 DC 11/11 IV 11/11 1846 1912 Sodium Chloride 1,000 ML BOLUS ONE 11/11 2030 DC 11/11 IV 11/11 Sodium Chloride 1,000 ML ONCE ONE 11/11 1945 CAN IV 11/12 0904 Sodium Chloride 1,000 ML BOLUS ONE 11/11 1715 DC 11/11 IV 11/11 1814 1857 Sodium Chloride 1,000 ML BOLUS ONE 11/11 1715 DC 11/11 IV 11/11 1814 1745 Tiotropium Hewett 1 PUF DAILY 11/12 0900 AC 11/12 INH 0935 Review of Systems Review of Systems: No hemoptysis. Hematemesis. No rash. No tremor. No melena. All other systems were reviewed, and were noted to be negative. 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 Hypothyroidism, tachy arrhythmia, macular degeneration, cataracts, congenital esotropia, cyclic vomiting syndrome, hypocalcemia, hyperparathyroidism, hiatal hernia, asthma, diverticulosis. Iron deficiency anemia. Surgical History Surgical History: cholecystectomy, , hysterectomy, GASTRIC BYPASS Family History Relations & Conditions If Any: BROTHER FH: lung cancer FATHER, , Age 60+. FH: CHF (congestive heart failure) FH: diabetes mellitus Psychosocial History Where Do You Live? Home Who Do You Live With? spouse, child Services at Home: None Primary Language: Frisian Smoking Status: Never Smoked ETOH Use: denies use Illicit Drug Use: denies illicit drug use Functional Ability ADLs Independent: dressing, eating, toileting, bathing. Ambulation: independent IADLs Independent: shopping, housework, finances, food prep, telephone, transportation , medication admin. Exam & Diagnostic Data Vital Signs and I&O Vital Signs Date Time Temp Pulse Resp B/P B/P Pulse O2 O2 Flow FiO2 Mean Ox Delivery Rate 11/12 1435 Room Air 11/12 1427 122 100/66 11/12 1200 Room Air 11/12 1200 97.8 104 18 104/70 93 Room Air 11/12 0900 99.6 116 20 102/60 95 Nasal 2.0L Cannula 11/12 0835 134 82/50 11/12 0704 97.3 109 18 88/60 98 Room Air 11/12 0230 106/78 11/11 2313 97.4 64 20 116/68 97 11/11 2300 96 Nasal 2.0L Cannula 11/11 2223 100/70 11/11 2212 97.2 105 20 99/63 95 Nasal 2.0L Cannula 11/11 2120 119 20 96/68 97 Nasal 2.0L Cannula 11/11 2016 80/52 11/11 2016 97.7 117 20 83/56 97 Room Air 11/11 2010 97.7 117 20 83/56 11/11 1822 117 15 107/58 95 Nasal 2.0L Cannula 11/11 1748 95 Room Air Room Air 11/11 1716 96.3 100 20 74/47 93 Room Air Room Air Intake & Output 11/12 1600 11/12 0800 11/12 0000 11/11 1600 11/11 0800 11/11 0000 Intake Total 1472 1565 2000 Output Total 1100 225 Balance 372 1340 2000 Intake, IV 752 1325 2000 Intake, Oral 720 240 Number 1 1 Bowel Movements Output, Urine 1100 225 Patient 245 lb Weight Weight Bed scale Measurement Method Physical Exam: Gen: The patient is in no acute distress HEENT: Normal nose, ears, and oropharynx. Pupils equal bilaterally. Conjunctiva normal. Neck: Supple with no JVD, no masses, and no thyromegaly Lungs: Clear to auscultation with normal respiratory effort Heart: Irregularly irregular, S1, S2, no murmurs. No peripheral edema, 2+ pulses in the lower extremities bilaterally Abdomen: Soft, nontender, no masses. No hepatomegaly. No splenomegaly Extremities: No clubbing or cyanosis. Normal muscle strength in the upper and lower extremities Skin: Normal skin turgor with no skin ulcers or lesions noted. Neuro: Cranial nerves intact. Sensation intact Psych: Alert and oriented x 3 with appropriate affect Labs/Jer[place]o Results: Laboratory Tests 11/12 11/12 11/12 1330 1045 0845 Chemistry Sodium (137 - 145 mmol/L) 141 Potassium (3.5 - 5.1 mmol/L) 3.1 L Chloride (98 - 107 mmol/L) 110 H Carbon Dioxide (22 - 30 mmol/L) 23 Anion Gap (5 - 16) 9 BUN (7 - 17 mg/dL) 12 Creatinine (0.5 - 1.0 mg/dL) 0.7 Estimated GFR (>60 ml/min) > 60 Glucose (65 - 99 mg/dL) 118 H Calcium (8.4 - 10.2 mg/dL) 7.2 L Phosphorus (2.5 - 4.5 mg/dL) 2.0 L Magnesium (1.6 - 2.3 mg/dL) 1.8 Cancelled Total Bilirubin (0.2 - 1.3 mg/dL) 0.4 AST (14 - 36 U/L) 43 H ALT (9 - 52 U/L) 56 H Troponin I (< 0.11 ng/ml) 0.09 Albumin (3.5 - 5.0 g/dL) 2.5 L Coagulation APTT (25 - 37 SEC) 77 H 11/12 11/12 11/12 0845 0838 0800 Chemistry Sodium (137 - 145 mmol/L) 140 Potassium (3.5 - 5.1 mmol/L) 3.0 L Chloride (98 - 107 mmol/L) 109 H Carbon Dioxide (22 - 30 mmol/L) 21 L Anion Gap (5 - 16) 10 BUN (7 - 17 mg/dL) 14 Creatinine (0.5 - 1.0 mg/dL) 0.7 Estimated GFR (>60 ml/min) > 60 BUN/Creatinine Ratio (7 - 25 %) 20.0 Hemoglobin A1c (4.2 - 5.8 %) Cancelled Pending Magnesium (1.6 - 2.3 mg/dL) 2.0 Total Bilirubin (0.2 - 1.3 mg/dL) 0.5 Direct Bilirubin (< 0.4 mg/dL) 0.2 AST (14 - 36 U/L) 46 H ALT (9 - 52 U/L) 58 H Alkaline Phosphatase (<127 U/L) 57 Troponin I (< 0.11 ng/ml) 0.11 *H Cancelled Total Protein (6.3 - 8.2 g/dL) 5.8 L Albumin (3.5 - 5.0 g/dL) 2.9 L Hematology CBC w Diff NO MAN DIFF REQ WBC (4.8 - 10.8 /CUMM) 10.6 RBC (4.20 - 5.40 /CUMM) 5.22 Hgb (12.0 - 16.0 G/DL) 13.6 Hct (37 - 47 %) 41.1 MCV (81.0 - 99.0 FL) 78.7 L MCH (27.0 - 31.0 PG) 26.0 L MCHC (33.0 - 37.0 G/DL) 33.0 RDW (11.5 - 14.5 %) 15.5 H Plt Count (130 - 400 /CUMM) 243 MPV (7.4 - 10.4 FL) 9.4 Gran % (42.2 - 75.2 %) 66.9 Lymphocytes % (20.5 - 51.1 %) 22.2 Monocytes % (1.7 - 9.3 %) 9.8 H Eosinophils % (0 - 5 %) 0.7 Basophils % (0.0 - 2.0 %) 0.4 Absolute Granulocytes (1.4 - 6.5 /CUMM) 7.1 H Absolute Lymphocytes (1.2 - 3.4 /CUMM) 2.4 Absolute Monocytes (0.10 - 0.60 /CUMM) 1.0 H Absolute Eosinophils (0.0 - 0.7 /CUMM) 0.1 Absolute Basophils (0.0 - 0.2 /CUMM) 0 11/12 11/12 11/12 0600 0457 0210 Chemistry Sodium (137 - 145 mmol/L) 138 Potassium (3.5 - 5.1 mmol/L) 2.8 *L Chloride (98 - 107 mmol/L) 108 H Carbon Dioxide (22 - 30 mmol/L) 21 L Anion Gap (5 - 16) 9 BUN (7 - 17 mg/dL) 15 Creatinine (0.5 - 1.0 mg/dL) 0.7 Estimated GFR (>60 ml/min) > 60 BUN/Creatinine Ratio (7 - 25 %) 21.4 Magnesium (1.6 - 2.3 mg/dL) 1.6 Troponin I (< 0.11 ng/ml) 0.10 Coagulation APTT (25 - 37 SEC) 42 H Hematology CBC w Diff Cancelled WBC Cancelled RBC Cancelled Hgb Cancelled Hct Cancelled MCV Cancelled MCH Cancelled MCHC Cancelled RDW Cancelled Plt Count Cancelled MPV Cancelled Urines Urinalysis MANY H Urine Color (YEL,AMB,STR) YEL Urine Clarity (CLEAR) CLEAR Urine pH (5.0 - 8.0) 6.5 Ur Specific Harrison (1.001 - 1.035) <= 1.005 Urine Protein (NEG,<30 MG/DL) NEG Urine Ketones (NEG) NEG Urine Nitrite (NEG) NEG Urine Bilirubin (NEG) NEG Urine Urobilinogen (0.1 - 1.0 EU/dl) 0.2 Ur Leukocyte Esterase (NEG) SMALL H Ur Microscopic SEDIMENT EXAMINED Urine WBC (0 - 2 /HPF) 3-5 H Ur Epithelial Cells (NONE,FEW) MOD H Urine Bacteria (NEG/NONE) MOD H Micro UA Comment MORE INFO: H Urine Hemoglobin (NEG) NEG Urine Glucose (N MG/DL) NEG 11/11 1729 Chemistry Sodium (137 - 145 mmol/L) Cancelled 131 L Potassium (3.5 - 5.1 mmol/L) Cancelled 3.1 L Chloride (98 - 107 mmol/L) Cancelled 94 L Carbon Dioxide (22 - 30 mmol/L) Cancelled 24 Anion Gap (5 - 16) Cancelled 13 BUN (7 - 17 mg/dL) Cancelled 16 Creatinine (0.5 - 1.0 mg/dL) Cancelled 0.7 Estimated GFR (>60 ml/min) > 60 BUN/Creatinine Ratio (7 - 25 %) Cancelled 22.9 Glucose (65 - 99 mg/dL) 151 H Lactic Acid (0.7 - 2.1 mmol/L) 2.1 2.7 H Calcium (8.4 - 10.2 mg/dL) 8.3 L Magnesium (1.6 - 2.3 mg/dL) 1.3 L Total Bilirubin (0.2 - 1.3 mg/dL) 0.6 AST (14 - 36 U/L) 43 H ALT (9 - 52 U/L) 54 H Alkaline Phosphatase (<127 U/L) 61 Troponin I (< 0.11 ng/ml) 0.02 Total Protein (6.3 - 8.2 g/dL) 6.5 Albumin (3.5 - 5.0 g/dL) 3.4 L Globulin (1.9 - 4.2 gm/dL) 3.1 Albumin/Globulin Ratio (1.1 - 2.2 %) 1.1 Lipase (23 - 300 U/L) 54 TSH (0.270 - 4.200 uIU/mL) 3.220 Free T4 (0.78 - 2.44 ng/dL) 1.95 Hematology CBC w Diff NO MAN DIFF REQ WBC (4.8 - 10.8 /CUMM) 10.7 RBC (4.20 - 5.40 /CUMM) 5.65 H Hgb (12.0 - 16.0 G/DL) 14.4 Hct (37 - 47 %) 44.0 MCV (81.0 - 99.0 FL) 77.9 L MCH (27.0 - 31.0 PG) 25.4 L MCHC (33.0 - 37.0 G/DL) 32.7 L RDW (11.5 - 14.5 %) 15.8 H Plt Count (130 - 400 /CUMM) 313 MPV (7.4 - 10.4 FL) 9.2 Gran % (42.2 - 75.2 %) 71.7 Lymphocytes % (20.5 - 51.1 %) 20.0 L Monocytes % (1.7 - 9.3 %) 7.7 Eosinophils % (0 - 5 %) 0.1 Basophils % (0.0 - 2.0 %) 0.5 Absolute Granulocytes (1.4 - 6.5 /CUMM) 7.7 H Absolute Lymphocytes (1.2 - 3.4 /CUMM) 2.1 Absolute Monocytes (0.10 - 0.60 /CUMM) 0.8 H Absolute Eosinophils (0.0 - 0.7 /CUMM) 0 Absolute Basophils (0.0 - 0.2 /CUMM) 0.1 Diagnostic Data EKG Results EKG tracing is independently reviewed, and reveals atrial for ablation with ventricular response of 110, left axis deviation CXR Results Negative Other Results Echocardiogram 05/18/17: Technically difficult study. Left ventricular cavity size normal. Left ventricular wall thickness mildly increased. No obvious regional wall motion abnormalities. Left ventricular ejection fraction is estimated at 55 %. Right ventricle not well visualized, grossly normal. Mild left atrial dilatation. Unable to estimate the right ventricular systolic pressure. Assessment/Plan Assessment/Plan Assessment: 1. Syncope 2. Chronic diarrhea with poor p.o. intake 3. Hypotension and hypokalemia, likely secondary to GI losses secondary to diarrhea 4. New onset atrial fibrillation with rapid ventricular rate Plan: * IV heparin per protocol. This will be changed to Eliquis prior to discharge * Digoxin 0.5 mg IV 1 followed by 0.25 mg every 6 hours 2 doses * Start metoprolol 12.5 mg p.o. twice daily, and increase as needed depending on blood pressure and heart rate * Echocardiaogram * Supplement potassium to greater than 4.0 and magnesium to greater than 2.0 * Possible INDY/cardioversion at some point if the patient does not convert spontaneously Consult Acknowledgment - Thank you for your consult request.
[2017-11-12 23:18] LABS: PTT > 120 SEC (25-37)
[2017-11-13] VITALS: BP 154/80
[2017-11-13 04:00] VITALS: BP 128/90
[2017-11-13 05:43] LABS: PTT 79 SEC (25-37)
[2017-11-13 08:00] VITALS: BP 152/82
--- NOTE | 2017-11-13 08:22 | PN- Resident CRCU ---
Uziel Downs 11/13/17 0819: Subjective HPI/CRCU Issues: 1. Syncopal episode 2. Hypotension 3. Acute gastroenteritis vs probable exacerbation of cyclic vomiting syndrome 4. New onset atrial fibrillation 5. History of atrial tachycardia on atenolol 6. Hypokalemia and hypomagnesemia 7. Transaminitis related to hypotension 8. Lactic acidosis 24 Hour Events: Vitals remained stable. No overnight events noted except a few episodes of tachycardia. She feels well, had a few episodes of diarrhea not associated with any abdominal pain. Did not have any fever. Strict ins and outs couldnt be done , due to her diarrhea. Objective Vital Signs & I&O Last 8 Hrs of Vitals and I&O: Intake & Output 11/13 1600 Intake Total 480 Output Total 500 Balance -20 Intake, Oral 480 Number 0 Bowel Movements Output, Urine 500 Exam General Appearance: no apparent distress Other Physical Findings: General Exam: AAOx3, No acute distress, Skin: No rashes, no breakdown;HEENT: PERRLA, EOMI;Neck: Supple, No JVD; No cervical lymphadenopathy;CVS: Reg Rate, Normal S1,S2, No MGR;Resp: Normal air entry, no ronchi/rales;Abdomen: Soft, No tenderness, Normal Bowel Sounds;Neuro: Normal Speech, Strength 5/5 b/l x 4 extremities, Sensation intact, CN III-XII NL, Reflexes 2+;Extremities: No cyanosis, no pedal edema Current Medications: Current Medications Sig/Roxanne Start time Last Medication Dose Route Stop Time Status Admin Amitriptyline HCl 25 MG QPM 11/12 2099 AC 11/12 PO 2130 Atenolol 50 MG BID 11/11 2099 DC PO Budesonide/ 2 PUF BID 11/12 0900 AC 11/13 Formoterol Fumarate INH 0804 Digoxin 0.25 MG ONCE ONE 11/12 2000 DC 11/12 IV 11/12 2000 195 Digoxin 0.25 MG ONCE ONE 11/12 1400 DC 11/12 IV 11/12 1401 1427 Heparin Sodium 25,000 UNIT Q24H 11/11 2029 AC 11/13 (Porcine) IV 0423 Sodium Chloride 500 ML Melatonin 5 MG ONCE ONE 11/12 2029 DC 11/12 PO 11/12 Metoprolol Tartrate 25 MG BID 11/13 2099 AC PO Metoprolol Tartrate 12.5 MG ONCE ONE 11/13 1100 DC 11/13 PO 11/13 1101 1121 Metoprolol Tartrate 12.5 MG BID 11/12 2100 DC 11/13 PO 0804 Potassium Chloride 40 MEQ ONCE ONE 11/12 1500 DC 11/12 PO 11/12 1501 1723 Potassium Chloride 40 MEQ Q10H 11/12 0830 DC 11/13 Dextrose/Sodium 1,000 ML IV 11/12 1829 0421 Chloride Tiotropium Jackson 1 PUF DAILY 11/12 0900 AC 11/13 INH 0804 Antibiotics Antibiotics? none ECHO Findings: Left ventricular ejection fraction is estimated at 55 %. Normal size left ventricle. Mild concentric left ventricular hypertrophy. Trace mitral regurgitation. Mild tricuspid regurgitation. No evidence of pulmonary hypertension. Trace pulmonic regurgitation. Impression/Plan Impression/Problem List Impression: Ms. Villegas is a 76yo F w/ PMH of atrial tachycardia, asthma, cyclic vomiting syndrome, hypokalemia, hypothyroidism, SHIVA, hyperparathyroidism, Hx of gastric bypass presented for nausea/nonbloody vomiting/watery nonbloody diarrhea 3 days , after she consumed "hotdogs". Patient had been feeling weakness, and had a unwitnessed syncope episode while in the bathroom, however. Patient without hitting her head or had any trauma to skin/soft tissue/bone, and later on she had additional 2 more possible syncope episodes on her bed when EMS arrived at bedside to check on her. Patient's blood pressure was noted to be hypotensive, given fluid by EMS, in the ER, and prior to transferring to ICU. Patient also reported poor p.o. intake, however denied any recent antibiotic use/sick contacts. Patient also denies any chest pain/dyspnea/palpitations. In regards to her cyclic vomiting syndrome she has an episode once every 6 months and presentation is almost similar to this, however she rarely had diarrhea with cyclic vomiting syndrome, and attributed her current symptoms more to the "hotdogs". Patient's also ate the same hot dog, however remain asymptomatic. Patient was admitted to telemetry, who was transferred to ICU for close monitoring of blood pressure. After she is more stable, she will be downgraded to telemetry. Problem list: 1. Syncopal episodes 2. Hypotension 3. Acute gastroenteritis and/or cyclic vomiting syndrome 4. New onset atrial fibrillation, now on heparin 5. History of atrial tachycardia on atenolol, currently on hold due to BP 6. Hypokalemia and hypomagnesemia 7. Mild Transaminitis related to hypotension 8. Lactic acidosis - Close tele monitoring for arrhythmias -Orthostatics positive with supine SBP in 120s, heart rate <100, but SBP decreased to 90s upon standing with increased heart rate to 140s. -Continue iv heparin. Would start eliquis at the time of discharge. - D5 1/2 NS with 40 meq of KCL at 75ml/hr. At this time, K is 5.0. Plan to recheck at 6PM, and if found low would replenish since the pt is on digoxin. - Increase the dose of metoprolol to 25mg bid. - Dr Guerra advising. - Serial EKG and troponins trended down - TSH/T4 WNL - Pending HbA1c - UA showed questionable UTI however patient being asymptomatic/No leukocytosis/ Afebrile. will cont monitor - Replete electrolytes to keep Mag > 2.0 and K > 4.0 - Lactic acid resolved to 2.1. - Clear liquid diet, advance diet as tolerated, anti-emetics - Patient had another loose stool episode this morning, if persistent diarrhea would obtain CT abd/pelvis - Resumed amitriptyline, synthroid and inhalers - PT eval once back to Floor DVT ppx IV heparin. Clear Liquid Diet DNR/I. Son is the patient's POA Problem List: 1. Lactic acidosis 2. Dehydration 3. Acute electrocardiogram changes Pain Ratin Tomorrow's Labs & Rationales: cbc bep Plan DVT/Prophylaxis: pharmacological Cj Montana MD 11/13/17 1436: Attending MD Review Statement Attending Sign Off Attending Cosign Statement: I have: examined this patient, reviewed aval EMR data, personally reviewd images, discussd w/resident/PA/EEG TECHNOLOGIST, agreed w/resident/PA/EEG TECHNOLOGIST. Other Findings: 76F PMH atrial tachycardia, asthma, cyclic vomiting syndrome associated with hypokalemia, hypothyroidism, SHIVA, hyperparathyroidism, gastric bypass admitted to ICU with intractable nausea/vomiting, profuse diarrhea, and persistent hypotension despite fluid resuscitation, found to be in new onset atrial fibrillation on admission. Patient improved after generous fluids and electrolyte replenishment. Today patient is doing well with no complaints. She was orthostatic positive. She remains in atrial fibrillation at a rate of 110. She is eating and drinking well. 1. New onset atrial fibrillation with hypotension 2. Acute gastroenteritis 3. Dehydration with hypovolemia 4. Hypokalemia (resolved) 5. Hypomagnesemia (resolved) Plan - Continue in ICU - NPO after midnight for INDY/cardioversion - Continue heparin drip - Continue Metoprolol for rate control - Follow cardiology recommendations - Continue gentle IV hydration - Replete electrolytes as needed - Continue home medications - DVT PPx
--- NOTE | 2017-11-13 09:36 | ECHOCARDIOGRAM REPORT ---
MORENA WINSTON Age: 76 : 1940 Gender: F Exam Date: 11/12/2017 09:59 Exam Location: [facility] Ht (in): 64 Wt (lb): 245 BSA: 2.30 BP: 117 / 65 Ordering Physician: Tyron Arguelles MD Referring Physician: Tyron Arguelles MD Technologist: Maggie Hopkins [facility] Room Number: 111 Indications: Rhythm: Atrial fibrillation Technical Quality: Fair FINDINGS Left Ventricle Normal size left ventricle. Mild concentric left ventricular hypertrophy. Left ventricular ejection fraction is estimated at 55 %. No obvious regional wall motion abnormalities. Right Ventricle Normal right ventricular size and function. Right Atrium Normal right atrial size. Left Atrium Normal left atrial size. Mitral Valve Mild mitral annular calcification. Trace mitral regurgitation. Aortic Valve Diffuse thickening (sclerosis) of the aortic valve cusps without reduced excursion. No aortic stenosis. No aortic regurgitation. Tricuspid Valve Tricuspid valve not well visualized, grossly normal. Mild tricuspid regurgitation. No evidence of pulmonary hypertension. Pulmonic Valve Pulmonic valve not well visualized, grossly normal. Trace pulmonic regurgitation. Pericardium No pericardial effusion. Great Vessels Normal size aortic root. CONCLUSIONS Left ventricular ejection fraction is estimated at 55 %. Normal size left ventricle. Mild concentric left ventricular hypertrophy. Trace mitral regurgitation. Mild tricuspid regurgitation. No evidence of pulmonary hypertension. Trace pulmonic regurgitation. Sunny Guerra M.D. (Electronically Signed) Final Date: 13 November 2017 09:35 MEASUREMENTS (Male / Female) Normal Values 2D ECHO LV Diastolic Diameter PLAX 2.9 cm 4.2 - 5.9 / 3.9 - 5.3 cm LV Systolic Diameter PLAX 2.2 cm 2.1 - 4.0 cm LV Fractional Shortening PLAX 24.1 % 25 - 46 % LV Ejection Fraction 2D Teich 49.7 % IVS Diastolic Thickness 1.3 cm LVPW Diastolic Thickness 1.3 cm LV Relative Wall Thickness 0.9 LVOT Diameter 2.0 cm Aortic Root Diameter 3.2 cm LA Systolic Diameter LX 2.8 cm 3.0 - 4.0 / 2.7 - 3.8 cm LA Volume 66.0 cm 18 - 58 / 22 - 52 cm DOPPLER AV Peak Velocity 126.0 cm/s AV Peak Gradient 6.4 mmHg LVOT Peak Velocity 76.0 cm/s LVOT Peak Gradient 2.3 mmHg AV Area Cont Eq pk 1.9 cm Mitral E Point Velocity 41.5 cm/s MV Deceleration Time 296.0 ms TR Peak Velocity 252.0 cm/s TR Peak Gradient 25.4 mmHg PV Peak Velocity 96.4 cm/s PV Peak Gradient 3.7 mmHg LV E' Lateral Velocity 10.1 cm/s Mitral E to LV E' Lateral Ratio 4.1 LV E' Septal Velocity 8.5 cm/s Mitral E to LV E' Septal Ratio 4.9
--- NOTE | 2017-11-13 13:25 | PN- Cardiology ---
Subjective Subjective: The patient reports that she is feeling better. Vomiting has resolved. No chest pain. No palpitations. No diaphoresis. No lightheadedness or dizziness. Objective Vital Signs and I&Os Vital Signs Date Time Temp Pulse Resp B/P B/P Pulse O2 O2 Flow FiO2 Mean Ox Delivery Rate 11/13 1121 123 148/78 11/13 0804 137 158/78 11/13 0800 97.6 150 22 152/82 93 Room Air 11/13 0400 96.0 116 20 128/90 92 Room Air 11/13 0000 92 Room Air 11/13 0000 97.4 118 22 154/80 92 Room Air 11/12 2131 121 25 128/82 11/12 1958 139 21 108/64 11/12 1600 98.0 104 22 104/60 94 Room Air 11/12 1435 Room Air 11/12 1427 122 100/66 Intake & Output 11/13 1600 11/13 0800 11/13 0000 11/12 1600 11/12 0800 11/12 0000 Intake Total 480 1072 1351.8 1472 1565 1999 Output Total 500 077 638 2914 225 Balance -20 722 651.8 372 1340 1999 Intake, IV 992 991.8 752 1325 1999 Intake, Oral 480 80 360 720 240 Number 0 1 0 1 1 Bowel Movements Output, Urine 500 996 588 2786 225 Patient 246 lb 245 lb Weight Weight Bed scale Bed scale Measurement Method Physical Exam: Gen: The patient is in no acute distress HEENT: Normal nose, ears, and oropharynx. Pupils equal bilaterally. Conjunctiva normal. Neck: Supple with no JVD, no masses, and no thyromegaly Lungs: Clear to auscultation with normal respiratory effort Heart: Irregularly irregular, S1, S2, no murmurs. No peripheral edema, 2+ pulses in the lower extremities bilaterally Abdomen: Soft, nontender, no masses. No hepatomegaly. No splenomegaly Extremities: No clubbing or cyanosis. Normal muscle strength in the upper and lower extremities Skin: Normal skin turgor with no skin ulcers or lesions noted. Neuro: Cranial nerves intact. Sensation intact Current Medications: Current Medications Sig/Roxanne Start time Last Medication Dose Route Stop Time Status Admin Amitriptyline HCl 25 MG QPM 11/12 2100 AC 11/12 PO 213 Atenolol 50 MG BID 11/11 2100 DC PO Budesonide/ 2 PUF BID 11/12 0900 AC 11/13 Formoterol Fumarate INH 0804 Digoxin 0.25 MG ONCE ONE 11/12 2000 DC 11/12 IV 11/12 Digoxin 0.25 MG ONCE ONE 11/12 1400 DC 11/12 IV 11/12 1401 1427 Heparin Sodium 25,000 UNIT Q24H 11/11 2029 AC 11/13 (Porcine) IV 0423 Sodium Chloride 500 ML Melatonin 5 MG ONCE ONE 11/12 2030 DC 11/12 PO 11/12 2031 2131 Metoprolol Tartrate 25 MG BID 11/13 2100 AC PO Metoprolol Tartrate 12.5 MG ONCE ONE 11/13 1100 DC 11/13 PO 11/13 1101 1121 Metoprolol Tartrate 12.5 MG BID 11/12 2100 DC 11/13 PO 0804 Potassium Chloride 40 MEQ ONCE ONE 11/12 1500 DC 11/12 PO 11/12 1501 1723 Potassium Chloride 40 MEQ Q10H 11/12 0830 DC 11/13 Dextrose/Sodium 1,000 ML IV 11/12 1829 0421 Chloride Tiotropium [place] 1 PUF DAILY 11/12 0900 AC 11/13 INH 0804 Results Last 48 Hrs of Labs/Mics: Laboratory Tests 11/13/17 1115: APTT Cancelled 11/13/17 0555: Anion Gap 10, Estimated GFR > 60, Glucose 181 H, Calcium 8.1 L, Phosphorus 2.3 L, Magnesium 1.7, Total Bilirubin 0.3, AST 34, ALT 59 H, Albumin 3.1 L 11/13/17 0515: APTT 79 H 11/13/17 0240: Digoxin 1.5 11/12/17 2235: APTT > 120 *H 11/12/17 2105: Anion Gap 9, Estimated GFR > 60, Glucose 117 H, Calcium 8.3 L, Phosphorus 1.9 L, Magnesium 1.9, Total Bilirubin 0.4, AST 48 H, ALT 59 H, Albumin 2.9 L 11/12/17 1330: Anion Gap 9, Estimated GFR > 60, Glucose 118 H, Calcium 7.2 L, Phosphorus 2.0 L, Magnesium 1.8, Total Bilirubin 0.4, AST 43 H, ALT 56 H, Troponin I 0.09, Albumin 2.5 L 11/12/17 1045: APTT 77 H 11/12/17 0845: Magnesium Cancelled 11/12/17 0845: Hemoglobin A1c Cancelled, CBC w Diff NO MAN DIFF REQ, RBC 5.22, MCV 78.7 L, MCH 26.0 L, MCHC 33.0, RDW 15.5 H, MPV 9.4, Gran % 66.9, Lymphocytes % 22.2, Monocytes % 9.8 H, Eosinophils % 0.7, Basophils % 0.4, Absolute Granulocytes 7.1 H, Absolute Lymphocytes 2.4, Absolute Monocytes 1.0 H, Absolute Eosinophils 0.1, Absolute Basophils 0 11/12/17 0838: Anion Gap 10, Estimated GFR > 60, BUN/Creatinine Ratio 20.0, Hemoglobin A1c Pending, Magnesium 2.0, Total Bilirubin 0.5, Direct Bilirubin 0.2, AST 46 H, ALT 58 H, Alkaline Phosphatase 57, Troponin I 0.11 *H, Total Protein 5.8 L, Albumin 2.9 L 11/12/17 0800: Troponin I Cancelled 11/12/17 0600: CBC w Diff Cancelled, WBC Cancelled, RBC Cancelled, Hgb Cancelled, Hct Cancelled , MCV Cancelled, MCH Cancelled, MCHC Cancelled, RDW Cancelled, Plt Count Cancelled, MPV Cancelled 11/12/17 0457: Urinalysis MANY H, Urine Color YEL, Urine Clarity CLEAR, Urine pH 6.5, Ur Specific [place] <= 1.005, Urine Protein NEG, Urine Ketones NEG, Urine Nitrite NEG, Urine Bilirubin NEG, Urine Urobilinogen 0.2, Ur Leukocyte Esterase SMALL H , Ur Microscopic SEDIMENT EXAMINED, Urine WBC 3-5 H, Ur Epithelial Cells MOD H , Urine Bacteria MOD H, Micro UA Comment MORE INFO: H, Urine Hemoglobin NEG, Urine Glucose NEG 11/12/17 0210: Anion Gap 9, Estimated GFR > 60, BUN/Creatinine Ratio 21.4, Magnesium 1.6, Troponin I 0.10, APTT 42 H 11/11/171999: Sodium Cancelled, Potassium Cancelled, Chloride Cancelled, Carbon Dioxide Cancelled, Anion Gap Cancelled, BUN Cancelled, Creatinine Cancelled, BUN/ Creatinine Ratio Cancelled 11/11/17 195: Lactic Acid 2.1 11/11/17 1729: Anion Gap 13, Estimated GFR > 60, BUN/Creatinine Ratio 22.9, Glucose 151 H, Lactic Acid 2.7 H, Calcium 8.3 L, Magnesium 1.3 L, Total Bilirubin 0.6, AST 43 H, ALT 54 H, Alkaline Phosphatase 61, Troponin I 0.02, Total Protein 6.5, Albumin 3.4 L, Globulin 3.1, Albumin/Globulin Ratio 1.1, Lipase 54, TSH 3.220, Free T4 1.95, CBC w Diff NO MAN DIFF REQ, RBC 5.65 H, MCV 77.9 L, MCH 25.4 L, MCHC 32.7 L, RDW 15.8 H, MPV 9.2, Gran % 71.7, Lymphocytes % 20.0 L, Monocytes % 7.7, Eosinophils % 0.1, Basophils % 0.5, Absolute Granulocytes 7.7 H, Absolute Lymphocytes 2.1, Absolute Monocytes 0.8 H, Absolute Eosinophils 0, Absolute Basophils 0.1 Microbiology 11/12 1045 UPPER RESP: Surveillance Culture - COMP 11/12 104 GI: Surveillance Culture - COMP Recent Imaging Studies: Echocardiogram 11/13/17: Left ventricular ejection fraction is estimated at 55 %. Normal size left ventricle. Mild concentric left ventricular hypertrophy. Trace mitral regurgitation. Mild tricuspid regurgitation. No evidence of pulmonary hypertension. Trace pulmonic regurgitation. Assessment/Plan Assessment/Plan Assessment: 1. Syncope 2. Chronic diarrhea with poor p.o. intake 3. Hypotension and hypokalemia, likely secondary to GI losses secondary to diarrhea 4. New onset atrial fibrillation with rapid ventricular rate, rate now partially controlled but remains mildly elevated Plan: * Increase metoprolol to 50 mg p.o. twice daily * Discontinue digoxin * N.p.o. after midnight for possible INDY/cardioversion tomorrow * Okay to transfer to telemetry floor Continue telemetry? Yes
[2017-11-13 16:00] VITALS: BP 112/60
[2017-11-13 18:14] LABS: PTT 64 SEC (25-37)
[2017-11-13 22:56] VITALS: BP 112/76
[2017-11-14 06:53] VITALS: BP 98/74
--- NOTE | 2017-11-14 07:19 | PN- Housestaff ---
RajinderdaniellelillianaGauravquiana 11/14/17 0717: Subjective Follow-up For: 1. Syncopal episode 2. Hypotension 3. Acute gastroenteritis vs probable exacerbation of cyclic vomiting syndrome 4. New onset atrial fibrillation 5. History of atrial tachycardia on atenolol 6. Hypokalemia and hypomagnesemia 7. Transaminitis related to hypotension 8. Lactic acidosis Tele-Events Since Last Visit: Continued to be atrial fibriallation, HR 105-125. No overnight tele events. Subjective: Ms Villegas is comfortable this am, but had some nausea this am. She did not have any chest pain, shortness of breath or palpitations. She was hypotensive in the a.m. She also had a few episodes of diarrhea this morning, but improved compared to when she came in. Review of Systems Constitutional: Reports: see HPI. Objective Last 24 Hrs of Vital Signs/I&O Vital Signs Date Time Temp Pulse Resp B/P B/P Pulse O2 O2 Flow FiO2 Mean Ox Delivery Rate 11/14 0653 97.7 112 20 98/74 93 Room Air 11/13 2256 98.2 100 20 112/76 93 Room Air 11/13 2055 98.4 114 23 132/72 11/13 1600 98.0 93 20 112/60 94 Room Air 11/13 1121 123 148/78 11/13 0804 137 158/78 11/13 0800 97.6 150 22 152/82 93 Room Air Intake & Output 11/14 0800 11/14 0000 11/13 1600 Intake Total 930 835 1925 Output Total 350 400 900 Balance -873 275 4766 Intake, IV 208 992 Intake, Oral 100 440 960 Number 1 0 Bowel Movements Output, Urine 350 400 900 Patient 249 lb 249 lb Weight Weight Bed scale Bed scale Measurement Method Physical Exam General Appearance: No Acute Distress Other Physical Findings: General Exam: AAOx3, No acute distress, Skin: No rashes, no breakdown;HEENT: PERRLA, EOMI;Neck: Supple, No JVD; No cervical lymphadenopathy;CVS: Reg Rate, Normal S1,S2, No MGR;Resp: Normal air entry, no ronchi/rales;Abdomen: Soft, No tenderness, Normal Bowel Sounds;Neuro: Normal Speech, Strength 5/5 b/l x 4 extremities, Sensation intact, CN III-XII NL, Reflexes 2+;Extremities: No cyanosis, no pedal edema Current Medications: Current Medications Sig/Roxanne Start time Last Medication Dose Route Stop Time Status Admin Amitriptyline HCl 25 MG QPM 11/12 2099 AC 11/13 PO 2053 Budesonide/ 2 PUF BID 11/12 0900 AC 11/13 Formoterol Fumarate INH 2054 Heparin Sodium 25,000 UNIT Q24H 11/11 2029 AC 11/13 (Porcine) IV 2227 Sodium Chloride 500 ML Metoprolol Tartrate 25 MG BID 11/13 2099 DC PO Metoprolol Tartrate 50 MG BID 11/13 2099 AC 11/13 PO 2054 Metoprolol Tartrate 12.5 MG ONCE ONE 11/13 1100 DC 11/13 PO 11/13 1101 1121 Metoprolol Tartrate 12.5 MG BID 11/12 2099 DC 11/13 PO 0804 Tiotropium [place] 1 PUF DAILY 11/12 0900 AC 11/13 INH 0804 Last 24 Hrs of Lab/[place] Results Last 24 Hrs of Labs/Mics: Laboratory Tests 11/14/17 0655: Sodium Pending, Potassium Pending, Chloride Pending, Carbon Dioxide Pending, Anion Gap Pending, BUN Pending, Creatinine Pending, Glucose Pending, Calcium Pending, Phosphorus Pending, Magnesium Pending, Total Bilirubin Pending, AST Pending, ALT Pending, Albumin Pending, APTT Pending, CBC w Diff Pending, WBC Pending, RBC Pending, Hgb Pending, Hct Pending, MCV Pending, MCH Pending, MCHC Pending, RDW Pending, Plt Count Pending, MPV Pending 11/13/17 1721: APTT 64 H 11/13/17 1115: APTT Cancelled Assessment/Plan Assessment: Ms. Villegas is a 76yo F w/ PMH of atrial tachycardia, asthma, cyclic vomiting syndrome, hypokalemia, hypothyroidism, SHIVA, hyperparathyroidism, Hx of gastric bypass presented for nausea/nonbloody vomiting/watery nonbloody diarrhea 3 days , after she consumed "hotdogs". Patient had been feeling weakness, and had a unwitnessed syncope episode while in the bathroom, however. Patient without hitting her head or had any trauma to skin/soft tissue/bone, and later on she had additional 2 more possible syncope episodes on her bed when EMS arrived at bedside to check on her. Patient's blood pressure was noted to be hypotensive, given fluid by EMS, in the ER, and prior to transferring to ICU. Patient also reported poor p.o. intake, however denied any recent antibiotic use/sick contacts. Patient also denies any chest pain/dyspnea/palpitations. In regards to her cyclic vomiting syndrome she has an episode once every 6 months and presentation is almost similar to this, however she rarely had diarrhea with cyclic vomiting syndrome, and attributed her current symptoms more to the "hotdogs". Patient's also ate the same hot dog, however remain asymptomatic. Patient was admitted to telemetry, who was transferred to ICU for close monitoring of blood pressure. After she is more stable, she was downgraded to telemetry. Problem list: 1. Syncopal episodes 2. Hypotension 3. Acute gastroenteritis and/or cyclic vomiting syndrome 4. New onset atrial fibrillation, now on heparin 5. History of atrial tachycardia on atenolol, currently on hold due to BP 6. Hypokalemia and hypomagnesemia 7. Mild Transaminitis related to hypotension 8. Lactic acidosis 9. Class 3 obesity Plan: - Close tele monitoring for arrhythmias -Orthostatics positive with supine SBP in 120s, heart rate <100, but SBP decreased to 90s upon standing with increased heart rate to 140s. -Continue iv heparin. Would start eliquis at the time of discharge. - D5 1/2 NS at 75ml/hr. - Increase the dose of metoprolol to 50 mg bid, as per the engineering design supervisor -Plan was to cardiovert today, but given her continued nausea and GI symptoms deferred the decision to cardiovert in a.m. - Serial EKG and troponins trended down - TSH/T4 WNL - Pending HbA1c - UA showed questionable UTI however patient being asymptomatic/No leukocytosis/ Afebrile. will cont monitor - Replete electrolytes to keep Mag > 2.0 and K > 4.0 -Diet as tolerated. - Resumed amitriptyline, synthroid and inhalers - PT evaluation pending. -GI evaluation pending. Continue compazine po tid which is her home medication. If she not able to tolerate, would change to zofran iv. DVT ppx IV heparin. Regular diet. DNR/I. Problem List: 1. Dehydration 2. Lactic acidosis 3. Diarrhea Pain Ratin Pain Location: back Pain Goal: Pain 4 or less Pain Plan: tylenol Tomorrow's Labs & Rationales: cbc bep Asif Carvajal 11/14/17 1127: Attending MD Review Statement Attending Statement Attending MD Statement: examined this patient, discuss w/resident/PA/SOFTWARE SECURITY CONSULTANT, agreed w/resident/PA/SOFTWARE SECURITY CONSULTANT, discussed with family, reviewed EMR data (avail), discussed with nursing, discussed with case mgmt, reviewed images, amended to note Attending Assessment/Plan: Patient seen/examined bedside. Patient c/o nasuea this morning. She is on telemetry for new onset afib. Patient denies any chest pain and palpitations. New osnet afib cardiology following plan for francy/cardioversion as per cardiology. A/c as per cards. HR controlled Cyclical vomiting syndrome c/o nasuea, avoid dehydration, IVF D5 1/2 NS @75 ml/ hr, iv antinausea meds prn. Consider GI consult if no improvement. hypotension improved. cont rest of care gi/dvt prophyalxis plan of care d/wed patient and family bedside.
[2017-11-14 08:02] LABS: ABSOLUTE BASOPHIL COUNT 0 /CUMM (0.0-0.2); ABSOLUTE EOSINOPHIL COUNT 0.3 /CUMM (0.0-0.7); ABSOLUTE GRANULOCYTE CT 6.9 /CUMM (1.4-6.5); ABSOLUTE MONOCYTE COUNT 0.7 /CUMM (0.10-0.60); BASOPHIL % 0.3 % (0.0-2.0); EOSINOPHIL % 3.3 % (0-5); GRANULOCYTE % 69.2 % (42.2-75.2); HEMATOCRIT 41.5 % (37-47); MEAN CORPUSCULAR HGB 25.9 PG (27.0-31.0); MEAN CORPUSCULAR HGB CONC 32.4 G/DL (33.0-37.0); MEAN CORPUSCULAR VOLUME 79.8 FL (81.0-99.0); MEAN PLATELET VOLUME 10.1 FL (7.4-10.4); PLATELET COUNT 224 /CUMM (130-400); RBC DISTRIBUTION WIDTH 16.1 % (11.5-14.5)
[2017-11-14 08:13] LABS: PTT 39 SEC (25-37)
--- NOTE | 2017-11-14 11:42 | PN- Cardiology ---
Subjective Subjective: Patient denies any palpitations. Still with nausea and also with diarrhea. Denies any obvious bleeding. Objective Vital Signs and I&Os Vital Signs Date Time Temp Pulse Resp B/P B/P Pulse O2 O2 Flow FiO2 Mean Ox Delivery Rate 11/14 0815 130 90/62 11/14 0800 Room Air Room Air 11/14 0653 97.7 112 20 98/74 93 Room Air 11/13 2256 98.2 100 20 112/76 93 Room Air 11/13 2055 98.4 114 23 132/72 11/13 1600 98.0 93 20 112/60 94 Room Air Intake & Output 11/14 1600 11/14 0800 11/14 0000 11/13 1600 11/13 0800 11/13 0000 Intake Total 428 344 0979 1072 1351.8 Output Total 350 400 900 350 700 Balance -782 987 6208 722 651.8 Intake, IV 208 992 992 991.8 Intake, Oral 100 440 960 80 360 Number 1 1 0 1 0 Bowel Movements Output, Urine 350 400 900 350 700 Patient 249 lb 249 lb 246 lb Weight Weight Bed scale Bed scale Bed scale Measurement Method Physical Exam: General: no apparent distress. Alert. Eyes: No obvious scleral icterus. HEENT: No jugular venous distention or abnormal jugular venous pulsations. Cardiovascular: Normal intensity S1/S2. Irregular Respiratory: Lungs clear to auscultation bilaterally. Abdomen: Soft, nontender with no guarding or rebound tenderness. Musculoskeletal: No clubbing or cyanosis noted Skin: warm Neurologic: No gross focal deficits noted. Current Medications: Current Medications Sig/Roxanne Start time Last Medication Dose Route Stop Time Status Admin Amitriptyline HCl 25 MG QPM 11/12 2099 AC 11/13 PO 2053 Budesonide/ 2 PUF BID 11/12 0900 AC 11/14 Formoterol Fumarate INH 0819 Dextrose/Sodium 1,000 ML Q13H 11/14 1045 AC Chloride IV 11/14 2344 Heparin Sodium 8,473 UNIT ONCE ONE 11/14 1011 DC 11/14 (Porcine) IV 11/14 1012 1055 Heparin Sodium 25,000 UNIT Q24H 11/11 2030 AC 11/13 (Porcine) IV 2227 Sodium Chloride 500 ML Magnesium Sulfate 1 GM ONCE ONE 11/14 1115 AC Dextrose/Water 100 ML IV 11/14 1514 Metoprolol Tartrate 25 MG BID 11/13 2099 DC PO Metoprolol Tartrate 50 MG BID 11/13 2099 AC 11/13 PO 2054 Ondansetron HCl 4 MG ONCE ONE 11/14 1030 DC 11/14 IV 11/14 1031 1053 Tiotropium [place] 1 PUF DAILY 11/12 0900 AC 11/13 INH 0804 Results Last 48 Hrs of Labs/Mics: Laboratory Tests 11/14/17 0655: Anion Gap 10, Estimated GFR > 60, Glucose 113 H, Calcium 8.7, Phosphorus 2.6, Magnesium 1.5 L, Total Bilirubin 0.4, AST 28, ALT 52, Albumin 2.9 L, APTT 39 H, CBC w Diff NO MAN DIFF REQ, RBC 5.20, MCV 79.8 L, MCH 25.9 L, MCHC 32.4 L, RDW 16.1 H, MPV 10.1, Gran % 69.2, Lymphocytes % 20.4 L, Monocytes % 6.8, Eosinophils % 3.3, Basophils % 0.3, Absolute Granulocytes 6.9 H, Absolute Lymphocytes 2.0, Absolute Monocytes 0.7 H, Absolute Eosinophils 0.3, Absolute Basophils 0 11/13/17 1721: APTT 64 H 11/13/17 1115: APTT Cancelled 11/13/17 0555: Anion Gap 10, Estimated GFR > 60, Glucose 181 H, Calcium 8.1 L, Phosphorus 2.3 L, Magnesium 1.7, Total Bilirubin 0.3, AST 34, ALT 59 H, Albumin 3.1 L 11/13/17 0515: APTT 79 H 11/13/17 0240: Digoxin 1.5 11/12/17 2235: APTT > 120 *H 11/12/17 2105: Anion Gap 9, Estimated GFR > 60, Glucose 117 H, Calcium 8.3 L, Phosphorus 1.9 L, Magnesium 1.9, Total Bilirubin 0.4, AST 48 H, ALT 59 H, Albumin 2.9 L 11/12/17 1330: Anion Gap 9, Estimated GFR > 60, Glucose 118 H, Calcium 7.2 L, Phosphorus 2.0 L, Magnesium 1.8, Total Bilirubin 0.4, AST 43 H, ALT 56 H, Troponin I 0.09, Albumin 2.5 L Recent Imaging Studies: Telemetry tracings were personally reviewed and show atrial fibrillation with periods of tachycardia Echocardiogram Left ventricular ejection fraction is estimated at 55 %. Normal size left ventricle. Mild concentric left ventricular hypertrophy. Trace mitral regurgitation. Mild tricuspid regurgitation. No evidence of pulmonary hypertension. Trace pulmonic regurgitation. Assessment/Plan Assessment/Plan 1. Syncopal episode 2. Hypotension 3. Cyclic vomiting syndrome with diarrhea 4. New onset atrial fibrillation with tachycardia 5. History of SVT on atenolol 6. Hypokalemia and hypomagnesemia with dehydration 7. Transaminitis; improving 8. Minimal troponin elevation not likely ischemic in etiology Patient still with nausea and diarrhea but reports no palpitations, dyspnea, or chest pain. Hemoglobin remains stable on IV heparin. Continue on the oral metoprolol as blood pressure tolerates. Replete electrolytes. Echocardiogram as above shows normal biventricular function with no major valvular pathology. If she does not spontaneously convert to sinus rhythm and she continues to tolerate anticoagulation will consider possible INDY/cardioversion tomorrow if her gastrointestinal symptoms are improving. She should be kept n.p.o. after midnight tonight for the possible procedure. Shen James MD [facility] Continue telemetry? Yes
--- NOTE | 2017-11-14 14:50 | Cons- Gastroenterology ---
General Information and HPI Consulting Request Date of Consult: 11/14/17 Requested By: Asif Carvajal MD Reason for Consult: 1. Nausea and vomiting 2. Diarrhea 3. History of cyclic vomiting syndrome Source of Information: patient, electronic medical record Exam Limitations: no limitations History of Present Illness: Patient is a 76-year-old female with past medical history of cyclic vomiting syndrome. She has an episode approximately every 6 months. His characterized by 7-10 days of nausea vomiting as well as 1 or 2 days of diarrhea at the onset of her cycle. She is a patient of Dr. Hany Milner. Patient was in her usual state of health until last Tuesday when she had onset of nausea vomiting and diarrhea. She was having approximately 4-5 bowel movements daily with no visible blood. She attributes the diarrhea which has persisted until the last day or so to a "hotdog" that she ate at the onset of this particular cycle. And all other respects her current cycle is like any other that she has experienced in the past. She is currently having 2 loose stools a day which is markedly improved from admission. She denies abdominal pain. On admission stool was negative for culture and sensitivities. As well as C. difficile toxin a and B. Stool is still pending for O&P. Of note her ALT is increased to the 50s and her albumin has been about 2.9 whereas previously it was normal. She has a history of gastric bypass. Her recent illness was complicated by hypotension in the setting of new onset atrial fibrillation with a rapid ventricular response. She was hypokalemic as well as hypomagnesemic and has been receiving parental supplementation with potasseium and magnesium. She feels that overall she is improving. She is no longer having any vomiting, although she is still nauseated. She has had a marked decrease in diarrheal stools as well. Allergies/Medications Allergies: Coded Allergies: No Known Allergies (11/11/17) Home Med List: Amitriptyline HCl 25 MG TABLET 1 TAB PO QPM CYCLICAL VOMITING (Reported) Atenolol (Tenormin) 50 MG TABLET 1 TAB PO BID HEART (Reported) Cholecalciferol (Vitamin D3) (Vitamin D3) 4,000 UNIT CAPSULE 1 CAP PO DAILY SUPPLEMENT (Reported) Cyanocobalamin (Vitamin B-12) (Cyanocobalamin Injection) 1,000 MCG/ML VIAL 1 ML IM Q30D SUPPLEMENT (Reported) Levothyroxine Sodium 175 MCG TABLET 1 TAB PO DAILY THYROID (Reported) Magnesium Oxide 400 MG TABLET 1 TAB PO DAILY SUPPLEMENT (Reported) Mometasone/Formoterol (Dulera 100 Mcg/5 Mcg Inhaler) 100 MCG-5 MCG/ACTUATION HFA.AER.AD 1 PUF INH BID SOB (Reported) Multivit-Min/FA/Lycopen/Lutein (Centrum Silver Tablet) 0.4 MG-300 MCG-250 MCG TABLET 1 TAB PO DAILY SUPPLEMENT (Reported) Prochlorperazine Maleate (Compazine) 10 MG TABLET 1 TAB PO TID PRN NAUSEA Tiotropium Catano (Spiriva) 18 MCG CAP.W.DEV 1 CAP INH DAILY SOB (Reported) Current Medications: Current Medications Sig/Roxanne Start time Last Medication Dose Route Stop Time Status Admin Amitriptyline HCl 25 MG QPM 11/12 2100 AC 11/13 PO 205 Budesonide/ 2 PUF BID 11/12 0900 AC 11/14 Formoterol Fumarate INH 0819 Dextrose/Sodium 1,000 ML Q13H 11/14 1045 AC 11/14 Chloride IV 11/14 2344 1216 Heparin Sodium 8,473 UNIT ONCE ONE 11/14 1011 DC 11/14 (Porcine) IV 11/14 1012 1055 Heparin Sodium 25,000 UNIT Q24H 11/11 2030 AC 11/13 (Porcine) IV 2227 Sodium Chloride 500 ML Magnesium Sulfate 1 GM ONCE ONE 11/14 1415 AC Dextrose/Water 100 ML IV 11/14 1814 Magnesium Sulfate 1 GM ONCE ONE 11/14 1115 AC 11/14 Dextrose/Water 100 ML IV 11/14 1514 1215 Metoprolol Tartrate 50 MG BID 11/13 2100 AC 11/14 PO 1240 Ondansetron HCl 4 MG ONCE ONE 11/14 1030 DC 11/14 IV 11/14 1031 1053 Prochlorperazine 10 MG TIDPRN PRN 11/14 1400 AC PO Tiotropium Catano 1 PUF DAILY 11/12 0900 AC 11/13 INH 0804 Past History Travel History Traveled to [place] past 21 day No Medical History Blood Transfusion Hx: No Neurological: NONE EENT: NONE Cardiovascular: TACHY ARRHYTHMIA Respiratory: asthma Gastrointestinal: CYCLIC VOMITING SYNDROME DIVERTICULOSIS Hepatic: cholelithiasis Renal: NONE Musculoskeletal: NONE Psychiatric: NONE Endocrine: hypoparathyroidism, hypothyroidism Blood Disorders: anemia Cancer(s): NONE 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 Hypothyroidism, tachy arrhythmia, macular degeneration, cataracts, congenital esotropia, cyclic vomiting syndrome, hypocalcemia, hyperparathyroidism, hiatal hernia, asthma, diverticulosis. Iron deficiency anemia. Surgical History Surgical History: cholecystectomy, , hysterectomy, GASTRIC BYPASS Family History Relations & Conditions If Any: BROTHER FH: lung cancer FATHER, , Age 60+. FH: CHF (congestive heart failure) FH: diabetes mellitus Psychosocial History Where Do You Live? Home Who Do You Live With? spouse, child Services at Home: None Primary Language: Comoran Smoking Status: Never Smoked ETOH Use: denies use Illicit Drug Use: denies illicit drug use Functional Ability ADLs Independent: dressing, eating, toileting, bathing. Ambulation: independent IADLs Independent: shopping, housework, finances, food prep, telephone, transportation , medication admin. Review of Systems Review of Systems Constitutional: Reports: weakness. Denies: diaphoresis, fever, malaise. EENTM: Reports: no symptoms. Cardiovascular: Reports: see HPI. Respiratory: Reports: no symptoms. GI: Reports: see HPI. Genitourinary: Reports: no symptoms. Musculoskeletal: Reports: no symptoms. Skin: Reports: no symptoms. Neurological/Psychological: Reports: no symptoms. Hematologic/Endocrine: Reports: no symptoms. Exam & Diagnostic Data Vital Signs and I&O Vital Signs Date Time Temp Pulse Resp B/P B/P Pulse O2 O2 Flow FiO2 Mean Ox Delivery Rate 11/14 1240 142 130/80 11/14 0800 Room Air Room Air 11/14 0653 97.7 112 20 98/74 93 Room Air 11/13 2256 98.2 100 20 112/76 93 Room Air 11/13 2055 98.4 114 23 132/72 11/13 1600 98.0 93 20 112/60 94 Room Air Intake & Output 11/14 1600 11/14 0400 11/13 1600 11/13 0400 11/12 1600 11/12 0400 Intake Total 490 209 0422 1351.8 3037 1999 Output Total 000 472 2079 700 1325 Balance -451 050 9335 651.8 1712 1999 Intake, IV 208 1984 991.8 2077 1999 Intake, Oral 241 619 0247 360 960 Number 5 1 1 0 2 Bowel Movements Output, Urine 515 678 8252 700 1325 Patient 249 lb 249 lb 246 lb 245 lb Weight Weight Bed scale Bed scale Bed scale Measurement Method Physical Exam General Appearance: well developed/nourished, alert, awake, mild distress Head: atraumatic, normal appearance Eyes: Bilateral: normal appearance. Ears, Nose, Throat: hearing grossly normal Neck: normal inspection, supple, full range of motion Respiratory: normal breath sounds, chest non-tender, lungs clear Cardiovascular: irregularly irregular Gastrointestinal: normal bowel sounds, soft, non-tender, no organomegaly Extremities: normal inspection Neurologic/Psych: awake, alert, oriented x 3 Cranial Nerves: cranial nerves II through XII are grossly intact. Skin: normal color, warm/dry Results Pertinent Lab Results: Laboratory Tests 11/14 11/13 11/13 0655 1721 1115 Chemistry Sodium (137 - 145 mmol/L) 138 Potassium (3.5 - 5.1 mmol/L) 4.2 Chloride (98 - 107 mmol/L) 107 Carbon Dioxide (22 - 30 mmol/L) 21 L Anion Gap (5 - 16) 10 BUN (7 - 17 mg/dL) 11 Creatinine (0.5 - 1.0 mg/dL) 0.7 Estimated GFR (>60 ml/min) > 60 Glucose (65 - 99 mg/dL) 113 H Calcium (8.4 - 10.2 mg/dL) 8.7 Phosphorus (2.5 - 4.5 mg/dL) 2.6 Magnesium (1.6 - 2.3 mg/dL) 1.5 L Total Bilirubin (0.2 - 1.3 mg/dL) 0.4 AST (14 - 36 U/L) 28 ALT (9 - 52 U/L) 52 Albumin (3.5 - 5.0 g/dL) 2.9 L Coagulation APTT (25 - 37 SEC) 39 H 64 H Cancelled Hematology CBC w Diff NO MAN DIFF REQ WBC (4.8 - 10.8 /CUMM) 10.0 RBC (4.20 - 5.40 /CUMM) 5.20 Hgb (12.0 - 16.0 G/DL) 13.4 Hct (37 - 47 %) 41.5 MCV (81.0 - 99.0 FL) 79.8 L MCH (27.0 - 31.0 PG) 25.9 L MCHC (33.0 - 37.0 G/DL) 32.4 L RDW (11.5 - 14.5 %) 16.1 H Plt Count (130 - 400 /CUMM) 224 MPV (7.4 - 10.4 FL) 10.1 Gran % (42.2 - 75.2 %) 69.2 Lymphocytes % (20.5 - 51.1 %) 20.4 L Monocytes % (1.7 - 9.3 %) 6.8 Eosinophils % (0 - 5 %) 3.3 Basophils % (0.0 - 2.0 %) 0.3 Absolute Granulocytes (1.4 - 6.5 /CUMM) 6.9 H Absolute Lymphocytes (1.2 - 3.4 /CUMM) 2.0 Absolute Monocytes (0.10 - 0.60 /CUMM) 0.7 H Absolute Eosinophils (0.0 - 0.7 /CUMM) 0.3 Absolute Basophils (0.0 - 0.2 /CUMM) 0 11/13 11/13 11/13 11/12 11/12 0555 0515 0240 2235 2105 Chemistry Sodium (137 - 145 mmol/L) 139 139 Potassium (3.5 - 5.1 mmol/L) 5.0 4.3 Chloride (98 - 107 mmol/L) 109 H 110 H Carbon Dioxide (22 - 30 mmol/L) 20 L 21 L Anion Gap (5 - 16) 10 9 BUN (7 - 17 mg/dL) 11 12 Creatinine (0.5 - 1.0 mg/dL) 0.6 0.7 Estimated GFR (>60 ml/min) > 60 > 60 Glucose (65 - 99 mg/dL) 181 H 117 H Calcium (8.4 - 10.2 mg/dL) 8.1 L 8.3 L Phosphorus (2.5 - 4.5 mg/dL) 2.3 L 1.9 L Magnesium (1.6 - 2.3 mg/dL) 1.7 1.9 Total Bilirubin (0.2 - 1.3 mg/dL) 0.3 0.4 AST (14 - 36 U/L) 34 48 H ALT (9 - 52 U/L) 59 H 59 H Albumin (3.5 - 5.0 g/dL) 3.1 L 2.9 L Coagulation APTT (25 - 37 SEC) 79 H > 120 *H Toxicology Digoxin (0.8 - 2.0 ng/mL) 1.5 11/12 11/12 11/12 1330 1045 0845 Chemistry Sodium (137 - 145 mmol/L) 141 Potassium (3.5 - 5.1 mmol/L) 3.1 L Chloride (98 - 107 mmol/L) 110 H Carbon Dioxide (22 - 30 mmol/L) 23 Anion Gap (5 - 16) 9 BUN (7 - 17 mg/dL) 12 Creatinine (0.5 - 1.0 mg/dL) 0.7 Estimated GFR (>60 ml/min) > 60 Glucose (65 - 99 mg/dL) 118 H Calcium (8.4 - 10.2 mg/dL) 7.2 L Phosphorus (2.5 - 4.5 mg/dL) 2.0 L Magnesium (1.6 - 2.3 mg/dL) 1.8 Cancelled Total Bilirubin (0.2 - 1.3 mg/dL) 0.4 AST (14 - 36 U/L) 43 H ALT (9 - 52 U/L) 56 H Troponin I (< 0.11 ng/ml) 0.09 Albumin (3.5 - 5.0 g/dL) 2.5 L Coagulation APTT (25 - 37 SEC) 77 H 11/12 11/12 11/12 0845 0838 0800 Chemistry Sodium (137 - 145 mmol/L) 140 Potassium (3.5 - 5.1 mmol/L) 3.0 L Chloride (98 - 107 mmol/L) 109 H Carbon Dioxide (22 - 30 mmol/L) 21 L Anion Gap (5 - 16) 10 BUN (7 - 17 mg/dL) 14 Creatinine (0.5 - 1.0 mg/dL) 0.7 Estimated GFR (>60 ml/min) > 60 BUN/Creatinine Ratio (7 - 25 %) 20.0 Hemoglobin A1c (4.2 - 5.8 %) Cancelled 6.1 H Magnesium (1.6 - 2.3 mg/dL) 2.0 Total Bilirubin (0.2 - 1.3 mg/dL) 0.5 Direct Bilirubin (< 0.4 mg/dL) 0.2 AST (14 - 36 U/L) 46 H ALT (9 - 52 U/L) 58 H Alkaline Phosphatase (<127 U/L) 57 Troponin I (< 0.11 ng/ml) 0.11 *H Cancelled Total Protein (6.3 - 8.2 g/dL) 5.8 L Albumin (3.5 - 5.0 g/dL) 2.9 L Hematology CBC w Diff NO MAN DIFF REQ WBC (4.8 - 10.8 /CUMM) 10.6 RBC (4.20 - 5.40 /CUMM) 5.22 Hgb (12.0 - 16.0 G/DL) 13.6 Hct (37 - 47 %) 41.1 MCV (81.0 - 99.0 FL) 78.7 L MCH (27.0 - 31.0 PG) 26.0 L MCHC (33.0 - 37.0 G/DL) 33.0 RDW (11.5 - 14.5 %) 15.5 H Plt Count (130 - 400 /CUMM) 243 MPV (7.4 - 10.4 FL) 9.4 Gran % (42.2 - 75.2 %) 66.9 Lymphocytes % (20.5 - 51.1 %) 22.2 Monocytes % (1.7 - 9.3 %) 9.8 H Eosinophils % (0 - 5 %) 0.7 Basophils % (0.0 - 2.0 %) 0.4 Absolute Granulocytes (1.4 - 6.5 /CUMM) 7.1 H Absolute Lymphocytes (1.2 - 3.4 /CUMM) 2.4 Absolute Monocytes (0.10 - 0.60 /CUMM) 1.0 H Absolute Eosinophils (0.0 - 0.7 /CUMM) 0.1 Absolute Basophils (0.0 - 0.2 /CUMM) 0 11/12 11/12 11/12 0600 0457 0210 Chemistry Sodium (137 - 145 mmol/L) 138 Potassium (3.5 - 5.1 mmol/L) 2.8 *L Chloride (98 - 107 mmol/L) 108 H Carbon Dioxide (22 - 30 mmol/L) 21 L Anion Gap (5 - 16) 9 BUN (7 - 17 mg/dL) 15 Creatinine (0.5 - 1.0 mg/dL) 0.7 Estimated GFR (>60 ml/min) > 60 BUN/Creatinine Ratio (7 - 25 %) 21.4 Magnesium (1.6 - 2.3 mg/dL) 1.6 Troponin I (< 0.11 ng/ml) 0.10 Coagulation APTT (25 - 37 SEC) 42 H Hematology CBC w Diff Cancelled WBC Cancelled RBC Cancelled Hgb Cancelled Hct Cancelled MCV Cancelled MCH Cancelled MCHC Cancelled RDW Cancelled Plt Count Cancelled MPV Cancelled Urines Urinalysis MANY H Urine Color (YEL,AMB,STR) YEL Urine Clarity (CLEAR) CLEAR Urine pH (5.0 - 8.0) 6.5 Ur Specific [place] (1.001 - 1.035) <= 1.005 Urine Protein (NEG,<30 MG/DL) NEG Urine Ketones (NEG) NEG Urine Nitrite (NEG) NEG Urine Bilirubin (NEG) NEG Urine Urobilinogen (0.1 - 1.0 EU/dl) 0.2 Ur Leukocyte Esterase (NEG) SMALL H Ur Microscopic SEDIMENT EXAMINED Urine WBC (0 - 2 /HPF) 3-5 H Ur Epithelial Cells (NONE,FEW) MOD H Urine Bacteria (NEG/NONE) MOD H Micro UA Comment MORE INFO: H Urine Hemoglobin (NEG) NEG Urine Glucose (N MG/DL) NEG 11/11 1729 Chemistry Sodium (137 - 145 mmol/L) Cancelled 131 L Potassium (3.5 - 5.1 mmol/L) Cancelled 3.1 L Chloride (98 - 107 mmol/L) Cancelled 94 L Carbon Dioxide (22 - 30 mmol/L) Cancelled 24 Anion Gap (5 - 16) Cancelled 13 BUN (7 - 17 mg/dL) Cancelled 16 Creatinine (0.5 - 1.0 mg/dL) Cancelled 0.7 Estimated GFR (>60 ml/min) > 60 BUN/Creatinine Ratio (7 - 25 %) Cancelled 22.9 Glucose (65 - 99 mg/dL) 151 H Lactic Acid (0.7 - 2.1 mmol/L) 2.1 2.7 H Calcium (8.4 - 10.2 mg/dL) 8.3 L Magnesium (1.6 - 2.3 mg/dL) 1.3 L Total Bilirubin (0.2 - 1.3 mg/dL) 0.6 AST (14 - 36 U/L) 43 H ALT (9 - 52 U/L) 54 H Alkaline Phosphatase (<127 U/L) 61 Troponin I (< 0.11 ng/ml) 0.02 Total Protein (6.3 - 8.2 g/dL) 6.5 Albumin (3.5 - 5.0 g/dL) 3.4 L Globulin (1.9 - 4.2 gm/dL) 3.1 Albumin/Globulin Ratio (1.1 - 2.2 %) 1.1 Lipase (23 - 300 U/L) 54 TSH (0.270 - 4.200 uIU/mL) 3.220 Free T4 (0.78 - 2.44 ng/dL) 1.95 Hematology CBC w Diff NO MAN DIFF REQ WBC (4.8 - 10.8 /CUMM) 10.7 RBC (4.20 - 5.40 /CUMM) 5.65 H Hgb (12.0 - 16.0 G/DL) 14.4 Hct (37 - 47 %) 44.0 MCV (81.0 - 99.0 FL) 77.9 L MCH (27.0 - 31.0 PG) 25.4 L MCHC (33.0 - 37.0 G/DL) 32.7 L RDW (11.5 - 14.5 %) 15.8 H Plt Count (130 - 400 /CUMM) 313 MPV (7.4 - 10.4 FL) 9.2 Gran % (42.2 - 75.2 %) 71.7 Lymphocytes % (20.5 - 51.1 %) 20.0 L Monocytes % (1.7 - 9.3 %) 7.7 Eosinophils % (0 - 5 %) 0.1 Basophils % (0.0 - 2.0 %) 0.5 Absolute Granulocytes (1.4 - 6.5 /CUMM) 7.7 H Absolute Lymphocytes (1.2 - 3.4 /CUMM) 2.1 Absolute Monocytes (0.10 - 0.60 /CUMM) 0.8 H Absolute Eosinophils (0.0 - 0.7 /CUMM) 0 Absolute Basophils (0.0 - 0.2 /CUMM) 0.1 Assessment/Plan Assessment/Recommendations: ASSESSMENT: 1. Cyclic vomiting syndrome. Patient reports that symptoms with the exception of diarrhea are typical of her cyclic vomiting syndrome. Diarrhea is often a component of cyclic vomiting syndrome. I suspect that diarrhea may have been exacerbated in this patient's case by IV magnesium. There is certainly the potential that patient's diarrhea may also have been related to the "hot dog" that she ate, although this is less likely given that her ate the same hot dog and is had no adverse consequences. Patient's diarrhea may also be related to some mild nonobstructive mesenteric ischemia in the setting of hypotension. 2. New-onset atrial fibrillation 3. Nausea this is likely related to her cyclic vomiting syndrome and a consequence of repeated vomiting. 4. Elevation of ALT -- ? due to hypotension or due to vomiting RECOMMENDATIONS: 1. Start Protonix 40 mg by mouth every morning 2. Check stool for lactoferrin 3. I do not see any indication for endoscopic intervention at this time as patient's symptoms seem to be following her characteristic course for cyclic vomiting. Patient may follow-up with Dr. Hany Milner as an outpatient for further evaluation and for follow-up. Consult Acknowledgment - Thank you for your consult request.
[2017-11-14 15:02] VITALS: BP 126/80
--- NOTE | 2017-11-14 15:11 | Cons- Psychiatry ---
Psychiatric Consult Date of Consult: 11/14/17 Reason for Consult: 76-year-old female admitted with a syncopal episode, hypotension, acute gastroenteritis versus a probable exacerbation of cyclic vomiting syndrome. History of Present Illness: "My son thinks I worry too much" The patient reports that she has had cyclic vomiting syndrome for the past few years and that her symptoms occur roughly once every 6 months. She denies any precipitants. She denies any recent changes in her mood. She reports some chronic mild anxiety around her son and her grandchildren. There has been no increase in her anxiety of late. Sleep is fair with no recent change in pattern. Patient's appetite is chronically poor. She is status post gastric bypass and does not keep her diet. She is not suicidal or homicidal. She is able to enjoy talking on the phone friends. She goes out to breakfast once weekly with her friends although the frequency of this has decreased of late due to illness in various group members. There are no psychotic symptoms. The patient lives with her of over 50 years. She says the marriage is overall a good one. He goes to the [employer] but she does not like it. The patient has 2 adult children both of whom are supportive. Her son got in January 2017. He works, has friends and is in a new relationship. The patient was prescribed amitriptyline several years ago to help with her vomiting. She says "it does not help or hurt ". Past psychiatric history: None. No history of self-harm or suicide attempts. Substance abuse history: None Personal history: The patient lives with her of over 50 years. He is in reasonable health. She worked with a [employer] for over 30 years and eventually was laid off when she was 66. She has 2 children a 53-year-old daughter and a 43-year-old son. The family appears close. She has 2 grandchildren age 24 and 20. The patient has a good [place] of friends. Her goes to the [employer] but she does not accompany him as she is not interested in the activities there. 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 Substance Use/Abuse History Drug Use/Abuse Substances Used/Abused No Assessment/Plan Mental Status Orientation: Person, Place, Situation Mental Status Exam: The patient is a very pleasant 76-year-old female seen lying in her hospital bed where she was calmly watching TV. She was alert and oriented x4. Gait was not tested. Eye contact was good. Speech was normal in rate, rhythm, volume and tone. Her mood is euthymic and her affect was mood congruent. She was not suicidal or homicidal. Thought process is normal in tempo, stream and form with no delusions or obsessions. Attention and concentration were good. There is no perceptual abnormality. Impulse control is good. The patient is of average intelligence, use of language is appropriate, fund of knowledge is average. Her insight is good and her judgment is unimpaired. Lab Results: Lab Albumin 2.9 g/dL L 11/14/17 0655 Carbon Dioxide 21 mmol/L L 11/14/17 0655 Glucose 113 mg/dL H 11/14/17 0655 Magnesium 1.5 mg/dL L 11/14/17 0655 Absolute Granulocytes 6.9 /CUMM H 11/14/17 0655 Absolute Monocytes 0.7 /CUMM H 11/14/17 0655 Lymphocytes % 20.4 % L 11/14/17 0655 MCH 25.9 PG L 11/14/17 0655 MCHC 32.4 G/DL L 11/14/17 0655 MCV 79.8 FL L 11/14/17 0655 RDW 16.1 % H 11/14/17 0655 TSH normal Diffential Diagnosis: There is no evidence of a psychiatric diagnosis at this time Impression: There is no evidence of psychiatric diagnosis at this time. The patient is likely a worrier at baseline but does not have an anxiety disorder. She does not have a depressive illness. There is no evidence of psychosis. She is aware that she is not adhering to her diet correctly and also aware that she is not exercising enough. She would benefit from perhaps attending the [facility] but is reluctant to do so. Discussed the option of supportive psychotherapy. The patient has declined at this time. Advised her that if she wishes to engage in a therapist in the future she can request a referral from her primary care provider. The patient is on amitriptyline for cyclic vomiting syndrome. There is no evidence that this has affected her psychiatrically. From a psychiatric viewpoint there is no reason this medication should not be discontinued. Thank you for consulting us on this patient. Psychiatry will sign off for now. Please reconsult if we can be of any further assistance.
[2017-11-14 18:18] VITALS: BP 76/40
[2017-11-14 18:44] LABS: PTT > 120 SEC (25-37)
--- NOTE | 2017-11-14 18:48 | Discharge Summary ---
Visit Information Visit Dates Admission Date: 11/11/17 Discharge Date: 11/18/17 Hospital Course Course Attending Physician: Asif Carvajal MD Primary Care Physician: Juliet BARRIOS,Gustavo Ruiz Hospital Course: Ms. Villegas is a 76yo F w/ PMH of supraventricular tachycardia, asthma, cyclic vomiting syndrome, hypokalemia, hypothyroidism, SHIVA, hyperparathyroidism, Hx of gastric bypass presented for nausea/nonbloody vomiting and watery nonbloody diarrhea 3 days prior to presentation, likely secondary to gastroenteritis associated w/ two episodes of syncope. She also has a h/o cyclic vomiting syndrome she has an episode once every 6 months, which is usually not assiciated w/ diarrhea. There was a suspicion of eating some meat product, that could be contaminated but no report of others being sick. She was also found to have atrial fibriallation at the time of presentation and was admitted to telemetry, who was transfered to the ICU for given persistent hypotension after fluid replenishment, and was downgraded to telemetry unit after blood pressure was more stable. At the time of admission, vitals temperature 97.7, pulse rate 117, respiration 20, blood pressure 83/56, 95% on 2 L. Etioloy in her case of syncope was thought to be likely multifactorial including hypotension from vomiting and diarrhea, leading to atrial fibrillation that likely exacerbated this clinical situation. She was also given a few doses of digoxin, and after continued to be in Afib; was successfully cardioverted. She showed clinical improvement after she was cardioverted, and adequately hydrated. It was possible to have other causes such as mild adrenal insufficiency that could have contributed to her clinical situation, but it would be an outpatient workup given clear etiology in her case. She also has h/o gastric bypass that makes absorption of electrolytes inadequate especially magnesium, which would eventually lead to hypokalemia that increaes the risk of conduction abnomalities. After she was cardioverted, she was continued on a DOAC- apixaban with out any complications. She was recommended to follow up with Dr. James/ to be able to follow up on a possible loop recorder implantation. She was persistently slightly hypotensive, SBP 100-110 w/ HR in the range of 90-100s, and the dose of metoprolol was adjusted. She continued to be orthostatically dizzy, Orthstat vitals positive at the time of presentation but resolved at the time of discharge. She didnt have any symptoms at the time of discharge. She was also continued on compazine prn, for cyclical vomiting syndrome, and there was a concern for possible stress exacerbating the frequency of cyclical vomiting syndrome for which an opinion from psychiatry was obtained who was of the opinion that she could be continued on amityptiline. There was a slight decrease in her H&H, but stayed stable. She also had low vitamin B12 for which she required vitamin B12 injections, but reviewing her anemia work up it appears like she might have had other factors contributing to her anemic state as a complication from previous gastric bypass surgery. HB 11.9 , MCV 79.7, Fe 21, TIBC 313, Ferritin 27.7. She was discharged home w/ a recommendation to follow up with the bag making machine tender to assess the need for continued anticoagulation. She was also given prescription and a free 30 day supply of Apixaban, and was educated about the adverse effects of anticoagulation. At the time of discharge, she had non- productive cough(mild), with no abnormal clinical or radiolgoical findings s/o of any infection. Pertinent lab findings: WBC 10.7 (11/11/2017)--> 9/5 (11/18/2017) Hb 14.4 (11/11/2017)-->11.7(11/16/2017)-->11.9 (11/18/2017) MCV 77.9 Platelets 313(11/11/2017)-->179(11/16/2017) Na 139 K 3.1(11/11/2017)-->4.0(11/18/2017)-replenished given use of digoxin Mg 1.3(11/11/2017)-->1.7(11/17/2017) h/o hypomagnesemia Digoxin level 1.5 11/13/17 Phos 4.1, Iron 21, TIBC 313, Ferritin 27. Troponin 0.02, 0.10, 0.11, 0.09. Chest x ray 11/17/17-Hypoexpanded lungs with mild bibasilar atelectasis. Otherwise, no acute cardiopulmonary process. Problem list: 1. Syncopal episode 2. Hypotension 3. Acute gastroenteritis, cyclic vomiting syndrome 4. New onset atrial fibrillation, now on a DOAC 5. History of SVT on atenolol, changed to metoprolol. 6. Hypokalemia and hypomagnesemia 7. Mild Transaminitis related to hypotension which is resolved. 8. Lactic acidosis now resolved 9. Class 3 obesity Consults: #1 cardiology-Braulio Martinez/Gerson James MD #2 gastroenterology-Dr. Saleh, Dr. Milner #3 psychiatry-Dr. Earlene Plata Allergies: Coded Allergies: No Known Allergies (11/11/17) Pertinent Lab Results: CARD - ECHOCARDIOGRAM 11/12/17-022 Left ventricular ejection fraction is estimated at 55 %. Normal size left ventricle. Mild concentric left ventricular hypertrophy. Trace mitral regurgitation. Mild tricuspid regurgitation. No evidence of pulmonary hypertension. Trace pulmonic regurgitation. TRANSESOPHAGEAL ECHO 11/13/17- Braulio Garcia M.D. Normal LV chamber size wall thickness and systolic function. The estimated LVEF is 55-60%. There are no focal wall motion abnormalities. Mildly dilated left atrium. No evidence of thrombus is seen within the left atrial appendage, left atrium nor other cardiac chamber. A small PFO with [id number] shunting is seen by color flow analysis. There is mild mitral regurgitation. Moderate tricuspid regurgitation. Following the INDY, cardioversion was performed using 200 J of synchronized, biphasic energy. The patient was successfully converted to normal sinus rhythm. CHEST XRAY, TWO VIEWS 11/17/17- Hypoexpanded lungs with mild bibasilar atelectasis. Otherwise, no acute cardiopulmonary process. Disposition Summary Disposition Principal Diagnosis: New onset Afibrillation Additional Diagnosis: Cyclic vomiting syndrome Discharge Disposition: home or self care Discharge Instructions General Discharge Information Code Status: Do Not Resucitate/Intubat Patient's Diet: as tolerated Patient's Activity: as tolerated Follow-Up Instructions/Appts: - Please see your PCP within one week of discharge - Please see your bag making machine tender within one week of discharge - Please return to the ER, if you have any dark stools, or blood in stool. - Please discuss w/ your bag making machine tender regarding an implantable loop recorder to be placed as an outpatient. Medications at Discharge Discharge Medications: Stop taking the following medications: Atenolol (Tenormin) 50 MG TABLET ORAL TWICE DAILY Continue taking these medications: Cholecalciferol (Vitamin D3) (Vitamin D3) 4,000 UNIT CAPSULE 1 Capsule ORAL DAILY Comments: NOT GIVEN Levothyroxine Sodium (Levothyroxine Sodium) 175 MCG TABLET 1 Tablet ORAL DAILY Comments: Last Taken: 11/18/17 Time: 6AM Amitriptyline HCl (Amitriptyline HCl) 25 MG TABLET 1 Tablet ORAL Every night Comments: Last Taken:11/17/17 Time:2050 Magnesium Oxide (Magnesium Oxide) 400 MG TABLET 1 Tablet ORAL DAILY Comments: NOT GIVEN Multivit-Min/FA/Lycopen/Lutein (Centrum Silver Tablet) 0.4 MG-300 MCG-250 MCG TABLET 1 Tablet ORAL DAILY Comments: NOT GIVEN Cyanocobalamin (Vitamin B-12) (Cyanocobalamin Injection) 1,000 MCG/ML VIAL 1 Milliliters INTRAMUSC ONCE A MONTH Qty = 1 Comments: Last Taken: 11/17/17 Time: 2 PM Prochlorperazine Maleate (Compazine) 10 MG TABLET 1 Tablet ORAL THREE TIMES DAILY as needed for NAUSEA Qty = 20 Comments: Last Taken:11/17/17 Time:3 PM Mometasone/Formoterol (Dulera 100 Mcg/5 Mcg Inhaler) 100 MCG-5 MCG/ACTUATION HFA.AER.AD 1 Puff Inhale through mouth TWICE DAILY Comments: NOT GIVEN IN HOSPITAL Tiotropium [place] (Spiriva) 18 MCG CAP.W.DEV 1 Capsule Inhale through mouth DAILY Comments: Last Taken: 11/18/17 Time: 0830 AM Start taking the following new medications: Metoprolol Tartrate (Metoprolol Tartrate) 25 MG TABLET 25 Milligram ORAL Every night Qty = 30 Refills = 1 Instructions: .. Comments: Last Taken:11/17/17 Time:9 PM Metoprolol Tartrate (Metoprolol Tartrate) 50 MG TABLET 1 Tablet ORAL Every Morning Qty = 30 Refills = 1 Instructions: . Comments: Last Taken:11/18/17 Time:0830 AM Apixaban (Eliquis) 5 MG TABLET 5 Milligram ORAL TWICE DAILY Qty = 30 No Refills Instructions: . Comments: Last Taken:11/18/17 Time:0830 AM Copies To: Juliet BARRIOS,Gustavo Ruiz Attending MD Review Statement Documenting Attending: Asif Carvajal MD
[2017-11-14 19:43] VITALS: BP 84/56
[2017-11-14 21:40] VITALS: BP 136/76
[2017-11-15 03:09] LABS: PTT 69 SEC (25-37)
[2017-11-15 06:23] VITALS: BP 100/56
--- NOTE | 2017-11-15 07:15 | PN- Housestaff ---
Uziel Downs 11/15/17 0712: Subjective Follow-up For: 1. Syncopal episode 2. Hypotension 3. Acute gastroenteritis vs probable exacerbation of cyclic vomiting syndrome 4. New onset atrial fibrillation 5. History of atrial tachycardia on atenolol 6. Hypokalemia and hypomagnesemia 7. Transaminitis related to hypotension 8. Lactic acidosis Complaints: no complaints Tele-Events Since Last Visit: Atrial fibrillation heart rate in the range of 110-142, she was cardioverted during the day. Normal sinus rhythm, sinus tachycardia. Subjective: She was comfortable this morning. Did not have any nausea, compared to yesterday. She did not have any new concerns. She was nothing by mouth overnight for a possible procedure FRANCY. Review of Systems Constitutional: Reports: see HPI. Objective Last 24 Hrs of Vital Signs/I&O Vital Signs Date Time Temp Pulse Resp B/P B/P Pulse O2 O2 Flow FiO2 Mean Ox Delivery Rate 11/15 0623 97.5 108 18 100/56 92 Room Air 11/14 2140 98.1 113 18 136/76 93 Room Air 11/14 1943 84/56 11/14 1818 123 76/40 11/14 1516 136 11/14 1502 98.4 66 18 126/80 94 11/14 1240 142 130/80 11/14 0800 Room Air Room Air Intake & Output 11/15 0800 11/15 0000 11/14 1600 Intake Total 40 1440 250 Output Total 200 850 450 Balance -160 590 -200 Intake, IV 1200 Intake, Oral 40 240 250 Number 1 5 Bowel Movements Output, Urine 200 850 450 Patient 254 lb 249 lb Weight Physical Exam General Appearance: No Acute Distress Other Physical Findings: General Exam: AAOx3, No acute distress, Skin: No rashes, no breakdown;HEENT: PERRLA, EOMI;Neck: Supple, No JVD; No cervical lymphadenopathy;CVS: Irregular Rate, Normal S1,S2, No MGR;Resp: Normal air entry, no ronchi/rales;Abdomen: Soft , No tenderness, Normal Bowel Sounds;Neuro: Normal Speech, Strength 5/5 b/l x 4 extremities, Sensation intact, CN III-XII NL, Reflexes 2+;Extremities: No cyanosis, no pedal edema. Current Medications: Current Medications Sig/Roxanne Start time Last Medication Dose Route Stop Time Status Admin Amitriptyline HCl 25 MG QPM 11/12 2100 AC 11/14 PO 2116 Budesonide/ 2 PUF BID 11/12 0900 AC 11/14 Formoterol Fumarate INH 2117 Dextrose/Sodium 1,000 ML Q13H 11/14 1045 DC 11/14 Chloride IV 11/14 2044 1216 Heparin Sodium 8,473 UNIT ONCE ONE 11/14 1011 DC 11/14 (Porcine) IV 11/14 1012 1055 Heparin Sodium 25,000 UNIT Q24H 11/11 2030 AC 11/14 (Porcine) IV 2117 Sodium Chloride 500 ML Levothyroxine Sodium 0.175 MG DAILY AC 11/14 2030 AC 11/15 PO 0522 Magnesium Sulfate 1 GM ONCE ONE 11/14 1415 DC 11/14 Dextrose/Water 100 ML IV 11/14 1814 1631 Magnesium Sulfate 1 GM ONCE ONE 11/14 1115 DC 11/14 Dextrose/Water 100 ML IV 11/14 1514 1215 Metoprolol Tartrate 50 MG BID 11/13 2100 AC 11/14 PO 1240 Omeprazole 40 MG DAILY AC 11/15 0700 AC 11/15 PO 0522 Ondansetron HCl 4 MG ONCE ONE 11/14 1030 DC 11/14 IV 11/14 1031 1053 Prochlorperazine 10 MG TIDPRN PRN 11/14 1400 AC 11/14 PO 2116 Sodium Chloride 500 ML BOLUS ONE 11/14 1845 DC 11/14 IV 11/14 1944 1849 Tiotropium [place] 1 PUF DAILY 11/12 0900 AC 11/14 INH 1503 Last 24 Hrs of Lab/[place] Results Last 24 Hrs of Labs/Mics: Laboratory Tests 11/15/17 0644: Sodium Pending, Potassium Pending, Chloride Pending, Carbon Dioxide Pending, Anion Gap Pending, BUN Pending, Creatinine Pending, BUN/Creatinine Ratio Pending , Magnesium Pending 11/15/17 0200: APTT 69 H 11/14/17 1714: APTT > 120 *H 11/14/17 0929: Stool Lactoferrin Pending Microbiology 11/14 0939 STOOL: Cryptosporidium Antigen - RECD 11/14 938 STOOL: Giardia Antigen (JERICHO) - RECD 11/14 938 STOOL: Clostridium difficile Toxin A & B - COMP Assessment/Plan Assessment: Ms. Villegas is a 76yo F w/ PMH of atrial tachycardia, asthma, cyclic vomiting syndrome, hypokalemia, hypothyroidism, SHIVA, hyperparathyroidism, Hx of gastric bypass presented for nausea/nonbloody vomiting/watery nonbloody diarrhea 3 days , after she consumed "hotdogs". Patient had been feeling weakness, and had a unwitnessed syncope episode while in the bathroom, however. Patient without hitting her head or had any trauma to skin/soft tissue/bone, and later on she had additional 2 more possible syncope episodes on her bed when EMS arrived at bedside to check on her. Patient's blood pressure was noted to be hypotensive, given fluid by EMS, in the ER, and prior to transferring to ICU. Patient also reported poor p.o. intake, however denied any recent antibiotic use/sick contacts. Patient also denies any chest pain/dyspnea/palpitations. In regards to her cyclic vomiting syndrome she has an episode once every 6 months and presentation is almost similar to this, however she rarely had diarrhea with cyclic vomiting syndrome, and attributed her current symptoms more to the "hotdogs". Patient's also ate the same hot dog, however remain asymptomatic. Patient was admitted to telemetry, who was transferred to ICU for close monitoring of blood pressure. After she is more stable, she was downgraded to telemetry. Problem list: 1. Syncopal episodes 2. Hypotension 3. Acute gastroenteritis and/or cyclic vomiting syndrome 4. New onset atrial fibrillation, now on heparin 5. History of atrial tachycardia on atenolol, currently on hold due to BP 6. Hypokalemia and hypomagnesemia 7. Mild Transaminitis related to hypotension 8. Lactic acidosis 9. Class 3 obesity Plan: - Close tele monitoring for arrhythmias -Continue iv heparin. Would start eliquis at the time of discharge, after discussing with the meat slicer. -Discontinue fluids - Increase the dose of metoprolol to 50 mg bid, as per the meat slicer. Hold for hypotension. -The patient was cardioverted today, to normal sinus rhythm. She continues to be tachycardic. Await final recs from the meat slicer. - Serial EKG and troponins trended down. - TSH/T4 WNL - Pending HbA1c - UA showed questionable UTI however patient being asymptomatic/No leukocytosis/ Afebrile. will cont monitor - Replete electrolytes to keep Mag > 2.0 and K > 4.0 -Diet as tolerated. - Resumed amitriptyline, synthroid and inhalers - PT evaluation pending. -GI specialist advising. Continue compazine po tid which is her home medication. If she not able to tolerate, would change to zofran iv. DVT ppx IV heparin. Heart healthy diet. DNR/I. Problem List: 1. Lactic acidosis 2. Dehydration 3. Diarrhea 4. Nausea & vomiting 5. Vomiting and diarrhea 6. Cyclic vomiting syndrome 7. Gastroenteritis Pain Ratin Pain Location: back Pain Goal: Pain 4 or less Pain Plan: tylenol prn Tomorrow's Labs & Rationales: cbc levip Asif Carvajal 11/15/17 1052: Attending MD Review Statement Attending Statement Attending MD Statement: examined this patient, discuss w/resident/PA/PIPE PULLER, agreed w/resident/PA/PIPE PULLER, discussed with family, reviewed EMR data (avail), discussed with nursing, discussed with case mgmt, reviewed images, amended to note Attending Assessment/Plan: Patient for cardiversion today. No new complaints. New onset afib cardiology following for francy/cardioversion today. A/c as per cards. HR controlled Cyclical vomiting syndrome c/o nasuea, gentle hydration IVF D5 1/2 NS @75 ml/hr, iv antinausea meds prn. GI consulted. cont rest of care, pyshc appracied comntiue same medications. gi/dvt prophyalxis
--- NOTE | 2017-11-15 07:49 | Transfer of Care Summary ---
Hospital Course Course Hospital Course: Reason for ICU admission: Hypotension/Syncope HPI: Ms. Villegas is a 76yo F w/ PMH of atrial tachycardia, asthma, cyclic vomiting syndrome, hypokalemia, hypothyroidism, SHIVA, hyperparathyroidism, Hx of gastric bypass presented for nausea/nonbloody vomiting/watery nonbloody diarrhea 3 days , after she consumed "hotdogs". Patient had been feeling weakness, and had a unwitnessed syncope episode while in the bathroom, however. Patient without hitting her head or had any trauma to skin/soft tissue/bone, and later on she had additional 2 more possible syncope episodes on her bed when EMS arrived at bedside to check on her. Patient's blood pressure was noted to be hypotensive, given fluid by EMS, in the ER, and prior to transferring to ICU. Patient also reported poor p.o. intake, however denied any recent antibiotic use/sick contacts. Patient also denies any chest pain/dyspnea/palpitations. Her cyclic vomiting syndrome she has an episode once every 6 months and presentation is almost similar to this, however she rarely had diarrhea with cyclic vomiting syndrome, and attributed her current symptoms more to the "hotdogs". Patient's also ate the same hot dog, however remain asymptomatic. On presentation to ER Vitals: afebrile, HR 100-120's, BP 74/47 -> 100/70, sats 97% on 2L. Labs: no leukocytosis, Na 131, K 3.1, glucose 151, lactic acid 2.7 -> 2.1, Mag 1.3, AST 43, ALT 54, trop 0.02 -> 0.10. CXR: unremarkable exam. EKG: atrial fibrillation @ 111, PVC's, Qtc 489. Echo (2017): EF 55%, mild left atrial dilatation. Patient was admitted to telemetry, and then transferred to ICU for close monitoring of blood pressure. Patient was then transferred back to Telemetry prior discharge. Patient was being cared for following conditions Problem list 1. Syncopal episodes, resolved 2. Hypotension, resolved 3. Acute gastroenteritis, likely resolved, and/or acute exacerbation cyclic vomiting syndrome, 4. New onset atrial fibrillation 5. History of atrial tachycardia 6. Hypokalemia and hypomagnesemia, repleted 7. Mild Transaminitis related to hypotension 8. Lactic acidosis, resolving On admission, patient was transferred to ICU for close monitoring of blood pressure, and was consented for central line/a line placement, fortunately patient was not requiring any invasive procedures as blood pressure improved. Patient was closely monitored for arrhythmias due to new onset A. fib, was placed on heparin drip given patient's high [id number] score of 3, (Age >74, Female), in addition to digoxin 0.5+0.252 dosing to control the rate. Patient was also given IV hydration with potassium supplement and patient to keep K above 4, being that hypokalemia was a risk factor for digoxin toxicity. Cardiology on board recommend to start metoprolol and follow-up in outpatient if discharged with metoprolol for slow taper. Serial EKGs/troponin during patient had been trending down from 0.11. Echocardiograph done showed normal biventricular function with no major valvular pathology. Patient's had a chemistry profile including TSH/T4/HbA1c/UA/lactic acid have been trended down to negative during ICU course. Patient was then transferred to telemetry for further evaluation of atrial fibrillation and possible INDY/cardioversion if not reverted spontaneously to sinus rhythm. DVT ppx IV heparin drip Heart Healthy Diet DNR/I. Son is the patient's POA Interval events in the ICU: see above Mechanical ventilation: No NIPPV: No Antibiotics plan: Off Abx Catheters/ Lines plan: N/A Things to be followed up in the floor: - Cardiology f/u on AF - Outpatient cardio followup on metoprolol tapering - Heparin drip bridging to oral NOAC/warfarin - BP monitoring Assessment/Plan: see above
--- NOTE | 2017-11-15 12:21 | ECHOCARDIOGRAM REPORT ---
MORENA WINSTON Age: 76 : Gender: F Exam Date: 11/15/2017 09:53 Exam Location: 1 [address] Ht (in): 64 Wt (lb): 246 BSA: 2.30 BP: 130 / 71 Ordering Physician: Sunny Guerra MD Referring Physician: Sunny Guerra MD Technologist: Phil Euceda [facility] Room Number: 174-1 Indications: AFIB/FLUTTER Rhythm: Technical Quality: Good Medications Ease of Transducer Insertion No Difficulty Complications None Technical Difficulty None FINDINGS Left Ventricle Normal LV chamber size wall thickness and systolic function. The estimated LVEF is 55-60%. There are no focal wall motion abnormalities. Right Ventricle Normal right ventricular structure and function Right Atrium Mildly dilated right atrium Left Atrium Mildly dilated left atrium LA Appendage No evidence of thrombus is seen within the left atrial appendage, left atrium nor other cardiac chamber. IA Septum A small PFO with [id number] shunting is seen by color flow analysis Mitral Valve Grossly normal mitral valve leaflet structure and function. There is mild mitral regurgitation Aortic Valve Grossly normal appearing, trileaflet aortic valve Tricuspid Valve Normal tricuspid valve with moderate tricuspid regurgitation Pulmonic Valve Normal-appearing pulmonic valve Pericardium Normal pericardium Great Vessels Normal great vessels CONCLUSIONS Normal LV chamber size wall thickness and systolic function. The estimated LVEF is 55-60%. There are no focal wall motion abnormalities. Mildly dilated left atrium. No evidence of thrombus is seen within the left atrial appendage, left atrium nor other cardiac chamber. A small PFO with [id number] shunting is seen by color flow analysis. There is mild mitral regurgitation. Moderate tricuspid regurgitation. Following the INDY, cardioversion was performed using 200 J of synchronized, biphasic energy. The patient was successfully converted to normal sinus rhythm. Braulio Garcia M.D. (Electronically Signed) Final Date: 15 November 2017 12:20 MEASUREMENTS (Male / Female) Normal Values
--- NOTE | 2017-11-15 13:28 | Proc Note Cardiology ---
Cardiology Procedure Procedure Date: 11/15/17 Cardiology Procedure(s): INDY Pre-Operative Diagnosis: Atrial fibrillation Post-Operative Diagnosis: Normal sinus rhythm Estimated Blood Loss: none Anesthesia: moderate sedation Procedure Findings: Please see the accompanying transesophageal echocardiogram report for details. Following the INDY, and under continued sedation by anesthesia, cardioversion was performed using 200 J of synchronized, biphasic energy. The patient was successfully converted from atrial fibrillation to a normal sinus rhythm. The patient tolerated the procedure well and recovered in the short stay area prior to returning to her telemetry floor room.
[2017-11-15 15:14] VITALS: BP 112/60
[2017-11-15 21:45] VITALS: BP 120/70
[2017-11-16 06:33] VITALS: BP 110/70
--- NOTE | 2017-11-16 07:21 | PN- Housestaff ---
Uziel Downs 11/16/17 0719: Subjective Follow-up For: 1. Syncopal episode 2. Hypotension 3. Acute gastroenteritis vs probable exacerbation of cyclic vomiting syndrome 4. New onset atrial fibrillation 5. History of atrial tachycardia on atenolol 6. Hypokalemia and hypomagnesemia 7. Transaminitis related to hypotension 8. Lactic acidosis Complaints: no complaints Tele-Events Since Last Visit: NSR, No overnight telemetry events. Subjective: She was comfortable this morning. She didnt have any nausea, but was concerned about continued lightheadedness after she got up from the bed. Review of Systems Constitutional: Reports: see HPI. Objective Last 24 Hrs of Vital Signs/I&O Vital Signs Date Time Temp Pulse Resp B/P B/P Pulse O2 O2 Flow FiO2 Mean Ox Delivery Rate 11/16 0633 97.7 95 20 110/70 93 Room Air 11/15 2145 98.2 118 20 120/70 93 Room Air 11/15 2127 118 120/70 11/15 1514 97.7 92 20 112/60 92 Room Air Intake & Output 11/16 0800 11/16 0000 11/15 1600 Intake Total 650 Output Total 456 525 3290 Balance -200 -500 -450 Intake, IV 250 Intake, Oral 400 Number 3 Bowel Movements Output, Urine [phone] Patient 252 lb Weight Weight Bed scale Measurement Method Physical Exam General Appearance: No Acute Distress Other Physical Findings: General Exam: AAOx3, No acute distress, Skin: No rashes, no breakdown;HEENT: PERRLA, EOMI;Neck: Supple, No JVD; No cervical lymphadenopathy;CVS: Irregular Rate, Normal S1,S2, No MGR;Resp: Normal air entry, no ronchi/rales;Abdomen: Soft , No tenderness, Normal Bowel Sounds;Neuro: Normal Speech, Strength 5/5 b/l x 4 extremities, Sensation intact, CN III-XII NL, Reflexes 2+;Extremities: No cyanosis, no pedal edema. Current Medications: Current Medications Sig/Roxanne Start time Last Medication Dose Route Stop Time Status Admin Acetaminophen 650 MG ONCE ONE 11/15 2344 DC 11/15 PO 11/15 2345 2338 Amitriptyline HCl 25 MG QPM 11/12 2100 AC 11/15 PO 2126 Apixaban 5 MG BID 11/15 1500 AC 11/15 PO 2245 Budesonide/ 2 PUF BID 11/12 0900 AC 11/15 Formoterol Fumarate INH 2127 Heparin Sodium 25,000 UNIT Q24H 11/11 2030 DC 11/14 (Porcine) IV 11/15 1600 2117 Sodium Chloride 500 ML Ketamine HCl 50 MG .STK-MED ONE 11/15 1023 DC IM 11/15 1024 Levothyroxine Sodium 0.175 MG DAILY AC 11/14 2030 AC 11/16 PO 0603 Lidocaine 0 .STK-MED ONE 11/15 1006 DC TOP Magnesium Sulfate 1 GM ONCE ONE 11/15 1345 DC 11/15 Dextrose/Water 100 ML IV 11/15 1744 1438 Metoprolol Tartrate 25 MG BID 11/15 2100 AC 11/15 PO 2127 Metoprolol Tartrate 50 MG BID 11/13 2100 DC 11/14 PO 1240 Omeprazole 40 MG DAILY AC 11/15 0700 AC 11/16 PO 0603 Patient Medication 1 ED ONE ONE 11/15 1530 DC Teaching ED 11/15 1531 Prochlorperazine 10 MG TIDPRN PRN 11/14 1400 AC 11/14 PO 2116 Tiotropium [place] 1 PUF DAILY 11/12 0900 AC 11/15 INH 0833 Last 24 Hrs of Lab/[place] Results Last 24 Hrs of Labs/Mics: Laboratory Tests 11/16/17 0615: Sodium Pending, Potassium Pending, Chloride Pending, Carbon Dioxide Pending, Anion Gap Pending, BUN Pending, Creatinine Pending, BUN/Creatinine Ratio Pending , Magnesium Pending, CBC w Diff Pending, WBC Pending, RBC Pending, Hgb Pending, Hct Pending, MCV Pending, MCH Pending, MCHC Pending, RDW Pending, Plt Count Pending, MPV Pending 11/15/17 1400: APTT Cancelled Assessment/Plan Assessment: Ms. Villegas is a 76yo F w/ PMH of atrial tachycardia, asthma, cyclic vomiting syndrome, hypokalemia, hypothyroidism, SHIVA, hyperparathyroidism, Hx of gastric bypass presented for nausea/nonbloody vomiting/watery nonbloody diarrhea 3 days , after she consumed "hotdogs". Patient had been feeling weakness, and had a unwitnessed syncope episode while in the bathroom, however. Patient without hitting her head or had any trauma to skin/soft tissue/bone, and later on she had additional 2 more possible syncope episodes on her bed when EMS arrived at bedside to check on her. Patient's blood pressure was noted to be hypotensive, given fluid by EMS, in the ER, and prior to transferring to ICU. Patient also reported poor p.o. intake, however denied any recent antibiotic use/sick contacts. Patient also denies any chest pain/dyspnea/palpitations. In regards to her cyclic vomiting syndrome she has an episode once every 6 months and presentation is almost similar to this, however she rarely had diarrhea with cyclic vomiting syndrome, and attributed her current symptoms more to the "hotdogs". Patient's also ate the same hot dog, however remain asymptomatic. Patient was admitted to telemetry, who was transferred to ICU for close monitoring of blood pressure. After she is more stable, she was downgraded to telemetry. Pertinent lab findings: WBC 10.7 (11/11/2017)-->7.9(11/16/2017) Hb 14.4 (11/11/2017)-->11.7(11/16/2017)- likely dilutional MCV 77.9 Platelets 313(11/11/2017)-->179(11/16/2017) Na 139 K 3.1(11/11/2017)-->3.8(11/16/2017)-replenished given use of digoxin Mg 1.3(11/11/2017)-->1.7(11/16/2017) h/o hypomagnesemia Digoxin level 1.5 11/13/17 INDY 11/13/17- Normal LV chamber size wall thickness and systolic function. The estimated LVEF is 55-60%. There are no focal wall motion abnormalities. Mildly dilated left atrium. No evidence of thrombus is seen within the left atrial appendage, left atrium nor other cardiac chamber. A small PFO with [id number] shunting is seen by color flow analysis. There is mild mitral regurgitation. Moderate tricuspid regurgitation. Following the INDY, cardioversion was performed using 200 J of synchronized, biphasic energy. The patient was successfully converted to normal sinus rhythm. Problem list: 1. Syncopal episode 2. Hypotension 3. Acute gastroenteritis and/or cyclic vomiting syndrome 4. New onset atrial fibrillation, now on heparin 5. History of atrial tachycardia on atenolol, currently on hold due to BP 6. Hypokalemia and hypomagnesemia 7. Mild Transaminitis related to hypotension 8. Lactic acidosis 9. Class 3 obesity Plan: - Close tele monitoring for arrhythmias - Continue Eliquis. - Continue metoprolol 25mg BID, and hold for bradycardia and/or hypotension. - HbA1c 6.1 - UA showed questionable UTI however patient being asymptomatic/No leukocytosis/ Afebrile. will cont monitor - Replete electrolytes to keep Mag > 2.0 and K > 4.0 -Diet as tolerated. - Resumed amitriptyline, synthroid and inhalers - PT evaluation pending. -GI specialist advising. Continue compazine po tid which is her home medication. If she not able to tolerate, would change to zofran iv. -Check stool guiac. Reason for an acute drop in all cellines including H&H is likely dilutional. Recheck in the am, and if it is still low; would investigate further given her recent start of AC DVT ppx Eliquis. Heart healthy diet DNR/I. Problem List: 1. Lactic acidosis 2. Dehydration 3. Diarrhea 4. Acute electrocardiogram changes 5. Nausea 6. Near syncope 7. Vomiting and diarrhea 8. Cyclic vomiting syndrome 9. Gastroenteritis Pain Ratin Pain Location: back Pain Goal: Pain 4 or less Pain Plan: tylenol Tomorrow's Labs & Rationales: cbc levip Asif Carvajal 11/16/17 1013: Attending MD Review Statement Attending Statement Attending MD Statement: examined this patient, discuss w/resident/PA/TRACTOR TRAILER OPERATOR, agreed w/resident/PA/TRACTOR TRAILER OPERATOR, discussed with family, reviewed EMR data (avail), discussed with nursing, discussed with case mgmt, reviewed images, amended to note Attending Assessment/Plan: Patient seen/examined bedside. She denies any new complaints. Patient is working with physical therapy. She is s/p cardiversion and remains in sinus rythm overnight. Patient to change to NOAC for afib at discharge. Her abdominal symptoms have improved. She is tolerating PO. Patient continue current care and follow cardiology recommendations.
[2017-11-16 08:08] LABS: ABSOLUTE BASOPHIL COUNT 0 /CUMM (0.0-0.2); ABSOLUTE EOSINOPHIL COUNT 0.4 /CUMM (0.0-0.7); MEAN CORPUSCULAR VOLUME 79.8 FL (81.0-99.0); MEAN PLATELET VOLUME 10.2 FL (7.4-10.4)
[2017-11-16 08:41] LABS: ABSOLUTE GRANULOCYTE CT 5.2 /CUMM (1.4-6.5); ABSOLUTE LYMPH COUNT 1.8 /CUMM (1.2-3.4); ABSOLUTE MONOCYTE COUNT 0.6 /CUMM (0.10-0.60); BASOPHIL % 0.2 % (0.0-2.0); EOSINOPHIL % 4.5 % (0-5); MEAN CORPUSCULAR HGB 26.2 PG (27.0-31.0); MEAN CORPUSCULAR HGB CONC 32.8 G/DL (33.0-37.0); PLATELET COUNT 179 /CUMM (130-400); RBC DISTRIBUTION WIDTH 16.4 % (11.5-14.5); RED BLOOD CELL CT 4.48 /CUMM (4.20-5.40); WHITE BLOOD CELL COUNT 7.9 /CUMM (4.8-10.8)
[2017-11-16 08:43] LABS: HEMATOCRIT 35.8 % (37-47)
--- NOTE | 2017-11-16 10:54 | PN- Cardiology ---
Subjective Subjective: Feels well this morning and offers no complaints. Objective Vital Signs and I&Os Vital Signs Date Time Temp Pulse Resp B/P B/P Pulse O2 O2 Flow FiO2 Mean Ox Delivery Rate 11/16 0820 118/66 11/16 0633 97.7 95 20 110/70 93 Room Air 11/15 2145 98.2 118 20 120/70 93 Room Air 11/15 2127 118 120/70 11/15 1514 97.7 92 20 112/60 92 Room Air Intake & Output 11/16 1600 11/16 0800 11/16 0000 11/15 1600 11/15 0800 11/15 0000 Intake Total 340 48 1329 Output Total 450 291 686 0521 200 850 Balance -450 -200 -500 -450 -160 590 Intake, IV 250 1200 Intake, Oral 400 40 240 Number 3 1 Bowel Movements Output, Urine 450 935 433 4086 200 850 Patient 252 lb 254 lb Weight Weight Bed scale Measurement Method Physical Exam: General: no apparent distress. Alert. Eyes: No obvious scleral icterus. HEENT: No jugular venous distention or abnormal jugular venous pulsations. Cardiovascular: Normal intensity S1/S2. Regular Respiratory: Lungs clear to auscultation bilaterally. Abdomen: Soft, nontender with no guarding or rebound tenderness. Musculoskeletal: No clubbing or cyanosis noted Skin: warm Neurologic: No gross focal deficits noted. Current Medications: Current Medications Sig/Roxanne Start time Last Medication Dose Route Stop Time Status Admin Acetaminophen 650 MG ONCE ONE 11/15 2345 DC 11/15 PO 11/15 2346 2338 Amitriptyline HCl 25 MG QPM 11/12 2100 AC 11/15 PO 2127 Apixaban 5 MG BID 11/15 1500 AC 11/16 PO 0819 Budesonide/ 2 PUF BID 11/12 0900 AC 11/16 Formoterol Fumarate INH 0821 Heparin Sodium 25,000 UNIT Q24H 11/11 2030 DC 11/14 (Porcine) IV 11/15 1600 2117 Sodium Chloride 500 ML Levothyroxine Sodium 0.175 MG DAILY AC 11/14 2029 AC 11/16 PO 0603 Magnesium Sulfate 1 GM ONCE ONE 11/16 0815 AC 11/16 Dextrose/Water 100 ML IV 11/16 1214 0821 Magnesium Sulfate 1 GM ONCE ONE 11/15 1345 DC 11/15 Dextrose/Water 100 ML IV 11/15 1744 1438 Metoprolol Tartrate 25 MG BID 11/15 2100 AC 11/16 PO 0820 Omeprazole 40 MG DAILY AC 11/15 0700 AC 11/16 PO 0603 Patient Medication 1 ED ONE ONE 11/15 1530 DC Teaching ED 11/15 1531 Potassium Chloride 40 MEQ ONCE ONE 11/16 0815 DC 11/16 PO 11/16 0816 0823 Prochlorperazine 10 MG TIDPRN PRN 11/14 1400 AC 11/14 PO 2116 Tiotropium [place] 1 PUF DAILY 11/12 0900 AC 11/16 INH 0820 Results Last 48 Hrs of Labs/Mics: Laboratory Tests 11/16/17 0615: Anion Gap 8, Estimated GFR > 60, BUN/Creatinine Ratio 15.7, Magnesium 1.7, CBC w Diff NO MAN DIFF REQ, RBC 4.48, MCV 79.8 L, MCH 26.2 L, MCHC 32.8 L, RDW 16.4 H, MPV 10.2, Gran % 65.0, Lymphocytes % 22.2, Monocytes % 8.1, Eosinophils % 4.5, Basophils % 0.2, Absolute Granulocytes 5.2, Absolute Lymphocytes 1.8, Absolute Monocytes 0.6, Absolute Eosinophils 0.4, Absolute Basophils 0 11/15/17 1400: APTT Cancelled 11/15/17 0644: Anion Gap 8, Estimated GFR > 60, BUN/Creatinine Ratio 18.3, Magnesium 1.6 11/15/17 0200: APTT 69 H 11/14/17 1714: APTT > 120 *H Recent Imaging Studies: Telemetry tracings are personally reviewed and shows sinus rhythm Transesophageal echocardiogram Normal LV chamber size wall thickness and systolic function. The estimated LVEF is 55-60%. There are no focal wall motion abnormalities. Mildly dilated left atrium. No evidence of thrombus is seen within the left atrial appendage, left atrium nor other cardiac chamber. A small PFO with [id number] shunting is seen by color flow analysis. There is mild mitral regurgitation. Moderate tricuspid regurgitation. Following the INDY, cardioversion was performed using 200 J of synchronized, biphasic energy. The patient was successfully converted to normal sinus rhythm. Braulio Garcia M.D. (Electronically Signed) Final Date: 15 November 2017 12:20 Assessment/Plan Assessment/Plan 1. Syncopal episode 2. Hypotension 3. Cyclic vomiting syndrome with diarrhea 4. New onset atrial fibrillation with tachycardia s/p INDY/CV 5. History of SVT on atenolol 6. Hypokalemia and hypomagnesemia with dehydration 7. Transaminitis; improving 8. Minimal troponin elevation not likely ischemic in etiology Patient is doing well and remains in sinus rhythm status post cardioversion yesterday. Continue on the twice daily metoprolol and Eliquis. She may be a candidate for implantable loop recorder in the future. She should follow-up in our office within 1 week of discharge. Shen James MD [facility] Continue telemetry? No
--- NOTE | 2017-11-16 14:43 | PN- Gastroenterology ---
Assessment/Plan GI Assessment/Recommendations: ASSEESSMENT: 1. Nausea and vomiting now resolved 2. Cyclic vomiting syndrome 3. Diarrhea stool cultures negative. Appears to be resolving. 4. Atrial fibrillation RECOMMENDATIONS: 1. Patient stable for discharge 2. Patient will follow up with Dr. Hany Milner after discharge. 3. GI will sign off for now. Please not hesitate to contact us should there be any change in clinical condition prior to discharge. Subjective Subjective: Patient is feeling well. She has had no further nausea or vomiting. She has not had a bowel movement today. She is doing well. She had only 2 loose stools yesterday. She underwent cardioversion yesterday without difficulty and is feeling much better. She is expecting to be discharged tomorrow and will follow up with Dr. Hany Milner as an outpatient. Objective Vital Signs and I&Os Vital Signs Date Time Temp Pulse Resp B/P B/P Pulse O2 O2 Flow FiO2 Mean Ox Delivery Rate 11/16 0820 118/66 11/16 0633 97.7 95 20 110/70 93 Room Air 11/15 2145 98.2 118 20 120/70 93 Room Air 11/15 2127 118 120/70 11/15 1514 97.7 92 20 112/60 92 Room Air Intake & Output 11/16 1600 11/16 0400 11/15 1600 11/15 0400 11/14 1600 11/14 0400 Intake Total 690 1440 350 648 Output Total 715 417 3795 850 800 400 Balance -650 -500 -610 590 -450 248 Intake, IV 250 1200 208 Intake, Oral 440 240 350 440 Number 4 5 1 Bowel Movements Output, Urine 416 048 6714 850 800 400 Patient 252 lb 254 lb 249 lb 249 lb Weight Weight Bed scale Bed scale Measurement Method Physical Exam General Appearance: no apparent distress, comfortable Respiratory: lungs clear Cardiovascular: regular rate/rhythm Abdomen: normal bowel sounds, soft Neurologic/Psychiatric: oriented x 3, normal mood/affect Current Medications: Current Medications Sig/Roxanne Start time Last Medication Dose Route Stop Time Status Admin Acetaminophen 650 MG ONCE ONE 11/15 2345 DC 11/15 PO 11/15 2345 2338 Amitriptyline HCl 25 MG QPM 11/12 2100 AC 11/15 PO 2127 Apixaban 5 MG BID 11/15 1500 AC 11/16 PO 0819 Budesonide/ 2 PUF BID 11/12 0900 AC 11/16 Formoterol Fumarate INH 0821 Heparin Sodium 25,000 UNIT Q24H 11/11 2030 DC 11/14 (Porcine) IV 11/15 1600 2117 Sodium Chloride 500 ML Levothyroxine Sodium 0.175 MG DAILY AC 11/14 2030 AC 11/16 PO 0603 Magnesium Sulfate 1 GM ONCE ONE 11/16 0815 DC 11/16 Dextrose/Water 100 ML IV 11/16 1214 0821 Magnesium Sulfate 1 GM ONCE ONE 11/15 1345 DC 11/15 Dextrose/Water 100 ML IV 11/15 1744 1438 Metoprolol Tartrate 25 MG BID 11/15 2100 AC 11/16 PO 0820 Omeprazole 40 MG DAILY AC 11/15 0700 AC 11/16 PO 0603 Patient Medication 1 ED ONE ONE 11/15 1530 DC Teaching ED 11/15 1531 Potassium Chloride 40 MEQ ONCE ONE 11/16 0815 DC 11/16 PO 11/16 0816 0823 Prochlorperazine 10 MG TIDPRN PRN 11/14 1400 AC 11/14 PO 2116 Tiotropium [place] 1 PUF DAILY 11/12 0900 AC 11/16 INH 0820 Results Pertinent Lab Results: Laboratory Tests 11/16 11/15 11/15 0615 1400 0644 Chemistry Sodium (137 - 145 mmol/L) 139 137 Potassium (3.5 - 5.1 mmol/L) 3.8 4.0 Chloride (98 - 107 mmol/L) 106 109 H Carbon Dioxide (22 - 30 mmol/L) 25 20 L Anion Gap (5 - 16) 8 8 BUN (7 - 17 mg/dL) 11 11 Creatinine (0.5 - 1.0 mg/dL) 0.7 0.6 Estimated GFR (>60 ml/min) > 60 > 60 BUN/Creatinine Ratio (7 - 25 %) 15.7 18.3 Magnesium (1.6 - 2.3 mg/dL) 1.7 1.6 Coagulation APTT Cancelled Hematology CBC w Diff NO MAN DIFF REQ WBC (4.8 - 10.8 /CUMM) 7.9 RBC (4.20 - 5.40 /CUMM) 4.48 Hgb (12.0 - 16.0 G/DL) 11.7 L Hct (37 - 47 %) 35.8 L MCV (81.0 - 99.0 FL) 79.8 L MCH (27.0 - 31.0 PG) 26.2 L MCHC (33.0 - 37.0 G/DL) 32.8 L RDW (11.5 - 14.5 %) 16.4 H Plt Count (130 - 400 /CUMM) 179 MPV (7.4 - 10.4 FL) 10.2 Gran % (42.2 - 75.2 %) 65.0 Lymphocytes % (20.5 - 51.1 %) 22.2 Monocytes % (1.7 - 9.3 %) 8.1 Eosinophils % (0 - 5 %) 4.5 Basophils % (0.0 - 2.0 %) 0.2 Absolute Granulocytes (1.4 - 6.5 /CUMM) 5.2 Absolute Lymphocytes (1.2 - 3.4 /CUMM) 1.8 Absolute Monocytes (0.10 - 0.60 /CUMM) 0.6 Absolute Eosinophils (0.0 - 0.7 /CUMM) 0.4 Absolute Basophils (0.0 - 0.2 /CUMM) 0 11/15 11/14 11/14 0200 1714 0929 Coagulation APTT (25 - 37 SEC) 69 H > 120 *H Other Body Source Stool Lactoferrin Pending 11/14 11/13 0655 1721 Chemistry Sodium (137 - 145 mmol/L) 138 Potassium (3.5 - 5.1 mmol/L) 4.2 Chloride (98 - 107 mmol/L) 107 Carbon Dioxide (22 - 30 mmol/L) 21 L Anion Gap (5 - 16) 10 BUN (7 - 17 mg/dL) 11 Creatinine (0.5 - 1.0 mg/dL) 0.7 Estimated GFR (>60 ml/min) > 60 Glucose (65 - 99 mg/dL) 113 H Calcium (8.4 - 10.2 mg/dL) 8.7 Phosphorus (2.5 - 4.5 mg/dL) 2.6 Magnesium (1.6 - 2.3 mg/dL) 1.5 L Total Bilirubin (0.2 - 1.3 mg/dL) 0.4 AST (14 - 36 U/L) 28 ALT (9 - 52 U/L) 52 Albumin (3.5 - 5.0 g/dL) 2.9 L Coagulation APTT (25 - 37 SEC) 39 H 64 H Hematology CBC w Diff NO MAN DIFF REQ WBC (4.8 - 10.8 /CUMM) 10.0 RBC (4.20 - 5.40 /CUMM) 5.20 Hgb (12.0 - 16.0 G/DL) 13.4 Hct (37 - 47 %) 41.5 MCV (81.0 - 99.0 FL) 79.8 L MCH (27.0 - 31.0 PG) 25.9 L MCHC (33.0 - 37.0 G/DL) 32.4 L RDW (11.5 - 14.5 %) 16.1 H Plt Count (130 - 400 /CUMM) 224 MPV (7.4 - 10.4 FL) 10.1 Gran % (42.2 - 75.2 %) 69.2 Lymphocytes % (20.5 - 51.1 %) 20.4 L Monocytes % (1.7 - 9.3 %) 6.8 Eosinophils % (0 - 5 %) 3.3 Basophils % (0.0 - 2.0 %) 0.3 Absolute Granulocytes (1.4 - 6.5 /CUMM) 6.9 H Absolute Lymphocytes (1.2 - 3.4 /CUMM) 2.0 Absolute Monocytes (0.10 - 0.60 /CUMM) 0.7 H Absolute Eosinophils (0.0 - 0.7 /CUMM) 0.3 Absolute Basophils (0.0 - 0.2 /CUMM) 0
[2017-11-16 14:47] VITALS: BP 114/60
[2017-11-16] MEDS ORDERED: METOPROLOL TART25 M1 PO (15:59)
[2017-11-16] MEDS ORDERED: ELIQUIS5 M1 PO (15:59)
[2017-11-16 17:29] VITALS: BP 108/60
[2017-11-16 22:20] VITALS: BP 102/62
[2017-11-17 06:08] VITALS: BP 112/70
--- NOTE | 2017-11-17 06:59 | PN- Housestaff ---
Uziel Downs 11/17/17 0656: Subjective Follow-up For: New onset Afib Diarrhea Complaints: no complaints Tele-Events Since Last Visit: NSR, No overnight tele events. Subjective: She is comfortable. She was sitting in her chair this am, and reported to have continued dizziness. She also reported non-productive cough that was worse this am, likely due to asthma. She was afebrile, and SBP continued to be around 100s. She was orthostatically dizzy, but didnt have any palpitatoins. Review of Systems Constitutional: Reports: see HPI. Objective Last 24 Hrs of Vital Signs/I&O Vital Signs Date Time Temp Pulse Resp B/P B/P Pulse O2 O2 Flow FiO2 Mean Ox Delivery Rate 11/17 0608 97.6 96 18 112/70 93 Room Air 11/17 0000 Room Air 11/16 2220 98.0 108 18 102/62 91 Room Air 11/16 1903 111 110/60 11/16 1729 118 108/60 11/16 1447 97.3 103 20 114/60 94 11/16 0820 118/66 Intake & Output 11/17 0800 11/17 0000 11/16 1600 Intake Total 120 100 500 Output Total 1050 Balance 120 100 -550 Intake, IV 100 Intake, Oral 120 100 400 Number 1 Bowel Movements Output, Urine 1050 Patient 254 lb Weight Weight Bed scale Measurement Method Physical Exam General Appearance: No Acute Distress Other Physical Findings: General Exam: AAOx3, No acute distress, Skin: No rashes, no breakdown;HEENT: PERRLA, EOMI;Neck: Supple, No JVD; No cervical lymphadenopathy;CVS: Regular Rate, Normal S1,S2, No MGR;Resp: Normal air entry, no ronchi/rales;Abdomen: Soft , No tenderness, Normal Bowel Sounds;Neuro: Normal Speech, Strength 5/5 b/l x 4 extremities, Sensation intact, CN III-XII NL, Reflexes 2+;Extremities: No cyanosis, no pedal edema. Current Medications: Current Medications Sig/Roxanne Start time Last Medication Dose Route Stop Time Status Admin Acetaminophen 650 MG ONCE ONE 11/17 0215 DC 11/17 PO 11/17 021 0222 Amitriptyline HCl 25 MG QPM 11/12 2100 AC 11/16 PO 190 Apixaban 5 MG BID 11/15 1500 AC 11/16 PO 1903 Budesonide/ 2 PUF BID 11/12 0900 AC 11/16 Formoterol Fumarate INH 1904 Guaifenesin 600 MG Q12 11/16 2100 AC 11/16 PO 1902 Levothyroxine Sodium 0.175 MG DAILY AC 11/14 2030 AC 11/17 PO 0552 Magnesium Sulfate 1 GM ONCE ONE 11/16 0815 DC 11/16 Dextrose/Water 100 ML IV 11/16 1214 0821 Metoprolol Tartrate 25 MG BID 11/15 2100 AC 11/16 PO 1903 Omeprazole 40 MG DAILY AC 11/15 0700 AC 11/17 PO 0552 Potassium Chloride 40 MEQ ONCE ONE 11/16 0815 DC 11/16 PO 11/16 0816 0823 Prochlorperazine 10 MG TIDPRN PRN 11/14 1400 AC 11/17 PO 0612 Tiotropium [place] 1 PUF DAILY 11/12 0900 AC 11/16 INH 0820 Tramadol HCl 50 MG .STK-MED ONE 11/16 1737 DC PO 11/16 1738 Last 24 Hrs of Lab/[place] Results Last 24 Hrs of Labs/Mics: Laboratory Tests Laboratory Tests 11/17/17 0618: Anion Gap 9, Estimated GFR > 60, BUN/Creatinine Ratio 15.7, Phosphorus 4.1, Magnesium 1.7, Iron 21 L, TIBC 313, Ferritin 27.7, CBC w Diff NO MAN DIFF REQ, RBC 4.48, MCV 79.3 L, MCH 26.3 L, MCHC 33.1, RDW 17.0 H, MPV 10.0, Gran % 65.2, Lymphocytes % 22.0, Monocytes % 7.9, Eosinophils % 4.5, Basophils % 0.4, Absolute Granulocytes 5.9, Absolute Lymphocytes 2.0, Absolute Monocytes 0.7 H, Absolute Eosinophils 0.4, Absolute Basophils 0, Retic Count 2.05 H Assessment/Plan Assessment: Ms. Villegas is a 76yo F w/ PMH of atrial tachycardia, asthma, cyclic vomiting syndrome, hypokalemia, hypothyroidism, SHIVA, hyperparathyroidism, Hx of gastric bypass presented for nausea/nonbloody vomiting/watery nonbloody diarrhea 3 days , after she consumed "hotdogs". Patient had been feeling weakness, and had a unwitnessed syncope episode while in the bathroom, however. Patient without hitting her head or had any trauma to skin/soft tissue/bone, and later on she had additional 2 more possible syncope episodes on her bed when EMS arrived at bedside to check on her. Patient's blood pressure was noted to be hypotensive, given fluid by EMS, in the ER, and prior to transferring to ICU. Patient also reported poor p.o. intake, however denied any recent antibiotic use/sick contacts. Patient also denies any chest pain/dyspnea/palpitations. In regards to her cyclic vomiting syndrome she has an episode once every 6 months and presentation is almost similar to this, however she rarely had diarrhea with cyclic vomiting syndrome, and attributed her current symptoms more to the "hotdogs". Patient's also ate the same hot dog, however remain asymptomatic. Patient was admitted to telemetry, who was transferred to ICU for close monitoring of blood pressure. After she is more stable, she was downgraded to telemetry. Pertinent lab findings: WBC 10.7 (11/11/2017)-->9.0(11/17/2017) Hb 14.4 (11/11/2017)-->11.7(11/16/2017)-->11.8(11/16/2017) MCV 77.9 Platelets 313(11/11/2017)-->179(11/16/2017) Na 139 K 3.1(11/11/2017)-->4.0(11/17/2017)-replenished given use of digoxin Mg 1.3(11/11/2017)-->1.7(11/17/2017) h/o hypomagnesemia Digoxin level 1.5 11/13/17 Phos 4.1, Iron 21, TIBC 313, Ferritin 27. Problem list: 1. Syncopal episode 2. Hypotension 3. Acute gastroenteritis and/or cyclic vomiting syndrome 4. New onset atrial fibrillation, now on heparin 5. History of atrial tachycardia on atenolol, currently on hold due to BP 6. Hypokalemia and hypomagnesemia 7. Mild Transaminitis related to hypotension 8. Lactic acidosis 9. Class 3 obesity Plan: - Close tele monitoring for arrhythmias - Continue Eliquis. - Change the dose of Metoprolol 50mg in the am, and 25mg in the pm, as per the transformer builder, and hold for bradycardia and/or hypotension. - HbA1c 6.1, w/ h/o glucose intolerance. - Recheck UA. - Replete electrolytes to keep Mag > 2.0 and K > 4.0 -Diet as tolerated. - Resumed amitriptyline, synthroid and inhalers - PT eval- Home discharge. -GI specialist advising. Continue compazine po tid which is her home medication. If she not able to tolerate, would change to zofran iv. -Check stool guiac. Hb continues to be low, but stable. MCV is low, h/o low B12, but normal MMA. -Check chest x ray to rule out any pneumonia. If she is stable, and no imaging findings s/o pneumonia, she could be discharged. DVT ppx Eliquis. Heart healthy diet DNR/I. Problem List: 1. Diarrhea 2. Near syncope 3. Nausea 4. Vomiting and diarrhea 5. Intractable cyclical vomiting with nausea 6. Gastroenteritis Pain Ratin Pain Location: back Pain Goal: Pain 4 or less Pain Plan: tylenol Tomorrow's Labs & Rationales: cbc bep Asif Carvajal 11/17/17 1239: Attending MD Review Statement Attending Statement Attending MD Statement: examined this patient, discuss w/resident/PA/CHEESE WEIGHER, agreed w/resident/PA/CHEESE WEIGHER, discussed with family, reviewed EMR data (avail), discussed with nursing, discussed with case mgmt, reviewed images, amended to note Attending Assessment/Plan: Patient c/o cough and dizziness this morning. No chest pain. BP stable. Afebrile. Obtain chest xray and UA. Cardiology recommend to increase metoprolol to 50 mg in am and 25 in night. Monitor hemodynamics. Anticipate discharge soon.
[2017-11-17 07:50] LABS: ABSOLUTE BASOPHIL COUNT 0 /CUMM (0.0-0.2); ABSOLUTE EOSINOPHIL COUNT 0.4 /CUMM (0.0-0.7); ABSOLUTE GRANULOCYTE CT 5.9 /CUMM (1.4-6.5); ABSOLUTE MONOCYTE COUNT 0.7 /CUMM (0.10-0.60); BASOPHIL % 0.4 % (0.0-2.0); EOSINOPHIL % 4.5 % (0-5); GRANULOCYTE % 65.2 % (42.2-75.2); HEMATOCRIT 35.5 % (37-47); MEAN CORPUSCULAR HGB 26.3 PG (27.0-31.0); MEAN CORPUSCULAR HGB CONC 33.1 G/DL (33.0-37.0); MEAN CORPUSCULAR VOLUME 79.3 FL (81.0-99.0); PLATELET COUNT 180 /CUMM (130-400); RED BLOOD CELL CT 4.48 /CUMM (4.20-5.40)
--- NOTE | 2017-11-17 09:02 | Patient Discharge Instructions ---
Discharge Instructions General Discharge Information You were seen/treated for: - Atrial fibrillation - Diarrhea - Cyclic vomiting syndrome Watch for these problems: - Chest pain, shortness of breath - Palpitations - Lightheadedness - Diarrhea, Worsening vomiting Special Instructions: - Please see your PCP within one week of discharge - Please see your medical pathologist within one week of discharge - Please return to the ER, if you have any dark stools, or blood in stool. - Please discuss w/ your medical pathologist regarding an implantable loop recorder to be placed as an outpatient. Acute Coronary Syndrome Inclusion Criteria At DC or during hospital stay patient has or had the following: ACS DIAGNOSIS No Discharge Core Measures Meds if any: Prescribed or Continued at Discharge Meds if any: NOT Prescribed or Continued at Discharge Congestive Heart Failure Inclusion Criteria At DC or during hospital stay patient has or had the following: CHF DIAGNOSIS No Discharge Core Measures Meds if any: Prescribed or Continued at Discharge Meds if any: NOT Prescribed or Continued at Discharge Cerebrovascular accident Inclusion Criteria At DC or during hospital stay patient has or had the following: CVA/TIA Diagnosis No Discharge Core Measures Meds if any: Prescribed or Continued at Discharge Meds if any: NOT Prescribed or Continued at Discharge Venous thromboembolism Inclusion Criteria VTE Diagnosis No VTE Type NONE VTE Confirmed by (Test) NONE Discharge Core Measures - Per Current guidelines, there needs to be overlap - treatment for the first 5 days of Warfarin therapy. - If discharged on Warfarin prior to 5 days of - overlap therapy, the patient will need to be - assessed for post discharge needs including - *Post discharge parental anticoagulation - *Warfarin and/or parental anticoagulation education - *Follow up date to check INR post discharge At least 5 days overlap therapy as Inpatient No Meds if any: Prescribed or Continued at Discharge Note: Overlap Therapy is Warfarin and Anticoagulant Meds if any: NOT Prescribed or Continued at Discharge
--- NOTE | 2017-11-17 09:49 | PN- Cardiology ---
Subjective Subjective: Telemetry reviewed. Sinus rhythm throughout. Objective Vital Signs and I&Os Vital Signs Date Time Temp Pulse Resp B/P B/P Pulse O2 O2 Flow FiO2 Mean Ox Delivery Rate 11/17 0836 115 112/70 11/17 0608 97.6 96 18 112/70 93 Room Air 11/17 0000 Room Air 11/16 2220 98.0 108 18 102/62 91 Room Air 11/16 1903 111 110/60 11/16 1729 118 108/60 11/16 1447 97.3 103 20 114/60 94 Intake & Output 11/17 1600 11/17 0800 11/17 0000 11/16 1600 11/16 0800 11/16 0000 Intake Total 120 100 500 Output Total 1050 200 500 Balance 120 100 -550 -200 -500 Intake, IV 100 Intake, Oral 120 100 400 Number 1 Bowel Movements Output, Urine 1050 200 500 Patient 254 lb 252 lb Weight Weight Bed scale Bed scale Measurement Method Physical Exam: On general exam patient comfortable sitting out in a chair talking with her . Head normocephalic atraumatic Eyes sclera anicteric conjunctiva showed no pallor extraocular muscles are normal Neck no jugular venous distention no thyroid masses no palpable nodes Chest lungs were clear bilaterally Heart regular rhythm with a 1/6 systolic murmur Abdomen soft no organomegaly extremities no edema Neurological no gross motor or sensory deficits. Current Medications: Current Medications Sig/Roxanne Start time Last Medication Dose Route Stop Time Status Admin Acetaminophen 650 MG ONCE ONE 11/17 0215 DC 11/17 PO 11/17 0216 0222 Amitriptyline HCl 25 MG QPM 11/12 2100 AC 11/16 PO 1904 Apixaban 5 MG BID 11/15 1500 AC 11/17 PO 0836 Budesonide/ 2 PUF BID 11/12 0900 AC 11/17 Formoterol Fumarate INH 0836 Guaifenesin 600 MG Q12 11/16 2100 AC 11/17 PO 0836 Levothyroxine Sodium 0.175 MG DAILY AC 11/14 2030 AC 11/17 PO 0552 Magnesium Sulfate 1 GM ONCE ONE 11/17 0915 AC Dextrose/Water 100 ML IV 11/17 1314 Magnesium Sulfate 1 GM ONCE ONE 11/16 0815 DC 11/16 Dextrose/Water 100 ML IV 11/16 1214 0821 Metoprolol Tartrate 25 MG BID 11/15 2100 AC 11/17 PO 0836 Omeprazole 40 MG DAILY AC 11/15 0700 AC 11/17 PO 0552 Prochlorperazine 10 MG TIDPRN PRN 11/14 1400 AC 11/17 PO 0612 Tiotropium [place] 1 PUF DAILY 11/12 0900 AC 11/17 INH 0836 Tramadol HCl 50 MG .STK-MED ONE 11/16 1737 DC PO 11/16 1738 Results Last 48 Hrs of Labs/Mics: Laboratory Tests 11/17/17 0618: Anion Gap 9, Estimated GFR > 60, BUN/Creatinine Ratio 15.7, Phosphorus 4.1, Magnesium 1.7, Iron 21 L, TIBC Pending, Ferritin Pending, CBC w Diff NO MAN DIFF REQ, RBC 4.48, MCV 79.3 L, MCH 26.3 L, MCHC 33.1, RDW 17.0 H, MPV 10.0, Gran % 65.2, Lymphocytes % 22.0, Monocytes % 7.9, Eosinophils % 4.5, Basophils % 0.4, Absolute Granulocytes 5.9, Absolute Lymphocytes 2.0, Absolute Monocytes 0.7 H, Absolute Eosinophils 0.4, Absolute Basophils 0, Retic Count 2.05 H 11/16/17 0615: Anion Gap 8, Estimated GFR > 60, BUN/Creatinine Ratio 15.7, Magnesium 1.7, CBC w Diff NO MAN DIFF REQ, RBC 4.48, MCV 79.8 L, MCH 26.2 L, MCHC 32.8 L, RDW 16.4 H, MPV 10.2, Gran % 65.0, Lymphocytes % 22.2, Monocytes % 8.1, Eosinophils % 4.5, Basophils % 0.2, Absolute Granulocytes 5.2, Absolute Lymphocytes 1.8, Absolute Monocytes 0.6, Absolute Eosinophils 0.4, Absolute Basophils 0 11/15/17 1400: APTT Cancelled Assessment/Plan Assessment/Plan In summary this 76-year-old female has a following problems . Syncopal episode 2. Hypotension 3. Cyclic vomiting syndrome with diarrhea 4. New onset atrial fibrillation with tachycardia s/p INDY/CV 5. History of SVT on atenolol 6. Hypokalemia and hypomagnesemia with dehydration 7. Transaminitis; improving 8. Minimal troponin elevation not likely ischemic in etiology She remains in sinus rhythm. I would increase her metoprolol to 50 mg a.m. and 25 mg p.m. Continue with Mavis and follow-up as an outpatient. Continue telemetry? Yes
[2017-11-17] MEDS ORDERED: METOPROLOL TART25 M1 PO (10:24)
[2017-11-17] MEDS ORDERED: METOPROLOL TART50 M1 PO (10:24)
[2017-11-17 14:50] VITALS: BP 110/60
--- NOTE | 2017-11-17 15:07 | RADIOLOGY REPORT ---
EXAMINATION: XR CHEST CLINICAL INFORMATION: Persistent cough. Evaluate for pneumonia. COMPARISON: Chest, most recent 11/11/2017. TECHNIQUE: AP and lateral views of the chest are obtained. FINDINGS: The heart is normal in size. The lungs are moderately hypoexpanded with mild bibasilar atelectasis. There is otherwise no definite congestion or focal consolidation. There are stable mild degenerative changes of the spine. IMPRESSION: Hypoexpanded lungs with mild bibasilar atelectasis. Otherwise, no acute cardiopulmonary process.
[2017-11-17 22:22] VITALS: BP 116/76
[2017-11-18 07:00] VITALS: BP 106/66
--- NOTE | 2017-11-18 07:21 | PN- Housestaff ---
Uziel Downs 11/18/17 0713: Subjective Follow-up For: New onset Afib Diarrhea Complaints: no complaints Tele-Events Since Last Visit: NSR. No overnight telemetry events Subjective: She was cofortable this am. No new concerns. Vitals stable overnight, and didnt have any chest pain, or palpitations. She continued to have cough, which is non productive. Last chest x ray didnt show any e/o consolidation. Review of Systems Constitutional: Reports: see HPI. Objective Last 24 Hrs of Vital Signs/I&O Vital Signs Date Time Temp Pulse Resp B/P B/P Pulse O2 O2 Flow FiO2 Mean Ox Delivery Rate 11/18 0700 97.6 85 20 106/66 94 Room Air 11/17 2245 Room Air Room Air 11/17 2222 97.4 105 26 116/76 91 11/17 205 106 112/60 11/17 1450 98.2 69 20 110/60 94 11/17 1302 107 100/66 11/17 0836 115 112/70 Intake & Output 11/18 0800 11/18 0000 11/17 1600 Intake Total 150 50 430 Output Total 700 400 650 Balance -550 -350 -220 Intake, IV 30 Intake, Oral 150 50 400 Number 1 Bowel Movements Output, Urine 700 400 650 Patient 252 lb Weight Physical Exam General Appearance: No Acute Distress Other Physical Findings: General Exam: AAOx3, No acute distress, Skin: No rashes, no breakdown;HEENT: PERRLA, EOMI;Neck: Supple, No JVD; No cervical lymphadenopathy;CVS: Regular Rate, Normal S1,S2, No MGR;Resp: Normal air entry, no ronchi/rales;Abdomen: Soft , No tenderness, Normal Bowel Sounds;Neuro: Normal Speech, Strength 5/5 b/l x 4 extremities, Sensation intact, CN III-XII NL, Reflexes 2+;Extremities: No cyanosis, no pedal edema. Current Medications: Current Medications Sig/Roxanne Start time Last Medication Dose Route Stop Time Status Admin Acetaminophen 650 MG ONCE ONE 11/18 0300 DC 11/18 PO 11/18 300 0308 Acetaminophen 650 MG .STK-MED ONE 11/17 1336 DC PO 11/17 1337 Amitriptyline HCl 25 MG QPM 11/12 2100 AC 11/17 PO 2050 Apixaban 5 MG BID 11/15 1500 AC 11/17 PO 2050 Budesonide/ 2 PUF BID 11/12 0900 AC 11/17 Formoterol Fumarate INH 9 Cyanocobalamin 1,000 MCG ONCE ONE 11/17 1020 DC 11/17 IM 11/17 1021 1452 Guaifenesin 10 ML ONCE ONE 11/17 2230 DC 11/18 PO 11/17 2231 0308 Guaifenesin 600 MG Q12 11/16 2100 AC 11/17 PO 205 Levothyroxine Sodium 0.175 MG DAILY AC 11/14 2030 AC 11/18 PO 06 Magnesium Sulfate 1 GM ONCE ONE 11/17 0915 DC 11/17 Dextrose/Water 100 ML IV 11/17 1314 1259 Metoprolol Tartrate 50 MG DAILY 11/18 0900 AC PO Metoprolol Tartrate 25 MG QPM 11/17 2100 AC 11/17 PO 205 Metoprolol Tartrate 25 MG ONCE ONE 11/17 1020 DC 11/17 PO 11/17 1021 1302 Metoprolol Tartrate 25 MG BID 11/15 2100 DC 11/17 PO 0836 Omeprazole 40 MG DAILY AC 11/15 0700 AC 11/18 PO 0605 Prochlorperazine 10 MG TIDPRN PRN 11/14 1400 AC 11/17 PO 1452 Tiotropium [place] 1 PUF DAILY 11/12 0900 AC 11/17 INH 0836 Last 24 Hrs of Lab/[place] Results Last 24 Hrs of Labs/Mics: Laboratory Tests 11/18/17 0639: Sodium Pending, Potassium Pending, Chloride Pending, Carbon Dioxide Pending, Anion Gap Pending, BUN Pending, Creatinine Pending, BUN/Creatinine Ratio Pending , CBC w Diff Pending, WBC Pending, RBC Pending, Hgb Pending, Hct Pending, MCV Pending, MCH Pending, MCHC Pending, RDW Pending, Plt Count Pending, MPV Pending 11/17/17 1500: Urine Color STRAW, Urine Clarity CLEAR, Urine pH 6.0, Ur Specific [place] <= 1.005, Urine Protein NEG, Urine Ketones NEG, Urine Nitrite NEG, Urine Bilirubin NEG, Urine Urobilinogen 0.2, Ur Leukocyte Esterase MOD H, Ur Microscopic SEDIMENT EXAMINED, Urine WBC 1-3 H, Ur Epithelial Cells RARE, Micro UA Comment MORE INFO: H, Urine Hemoglobin NEG, Urine Glucose NEG Assessment/Plan Assessment: Ms. Villegas is a 76yo F w/ PMH of supraventricular tachycardia, asthma, cyclic vomiting syndrome, hypokalemia, hypothyroidism, SHIVA, hyperparathyroidism, Hx of gastric bypass presented for nausea/nonbloody vomiting/watery nonbloody diarrhea syncope. In regards to her cyclic vomiting syndrome she has an episode once every 6 months and presentation is almost similar to this, however she rarely associated with diarrhea. She was initially admitted to intensive care unit, and was downgraded to telemetry unit after blood pressure was more stable. Etioloy in her case of syncope is likely multifactorial including hypotension from vomiting and diarrhea, leading to atrial fibrillation that likely exacerbated this clinical situation. She showed clinical improvement after she was cardioverted, and adequately hydrated. It is possible to have other causes such as mild adrenal insufficiency that could have contributed to her clinical situation, but it would be an outpatient workup given clear etiology in her case. She also has h/o gastric bypass that makes absorption of electrolytes inadequate especially magnesium, which would eventually lead to hypokalemia that increaes the risk of conduction abnomalities. Pertinent lab findings: WBC 10.7 (11/11/2017)--> 9.5 (11/18/2017) Hb 14.4 (11/11/2017)-->11.7(11/16/2017)-->11.9 (11/18/2017) MCV 77.9 Platelets 313(11/11/2017)-->179(11/16/2017) Na 139 K 3.1(11/11/2017)-->4.0(11/18/2017)-replenished given use of digoxin Mg 1.3(11/11/2017)-->1.7(11/17/2017) h/o hypomagnesemia Digoxin level 1.5 11/13/17 Phos 4.1, Iron 21, TIBC 313, Ferritin 27. Chest x ray 11/17/17-Hypoexpanded lungs with mild bibasilar atelectasis. Otherwise, no acute cardiopulmonary process. Problem list: 1. Syncopal episode 2. Hypotension 3. Acute gastroenteritis and/or cyclic vomiting syndrome 4. New onset atrial fibrillation, now on a DOAC 5. History of SVT on atenolol, currently on hold due to BP 6. Hypokalemia and hypomagnesemia 7. Mild Transaminitis related to hypotension which is resolved. 8. Lactic acidosis now resolved 9. Class 3 obesity Plan: - Close tele monitoring for arrhythmias - Continue Eliquis. - Changed the dose of Metoprolol 50mg in the am, and 25mg in the pm, as per the marbleizing machine tender, and hold for bradycardia and/or hypotension. Currently tolerating well. - HbA1c 6.1, w/ h/o glucose intolerance. - Replete electrolytes to keep Mag > 2.0 and K > 4.0 -Diet as tolerated. - Resumed amitriptyline, synthroid and inhalers - PT eval- Home discharge. -GI specialist advising. Continue compazine po tid which is her home medication. If she not able to tolerate, would change to zofran iv. -Check stool guiac. Hb continues to be low, but stable. MCV is low, h/o low B12, but normal MMA. -Continue guafenasin for now. Cxr not s/o any pneumonia. -Check orthostat vitals. DVT ppx Eliquis. Heart healthy diet DNR/I. Discharge today. Problem List: 1. Dehydration 2. Diarrhea 3. Nausea 4. Nausea & vomiting 5. Intractable cyclical vomiting with nausea 6. Asthma 7. Hypomagnesemia 8. Hypokalemia 9. Orthostatic hypotension Pain Ratin Pain Location: back Pain Goal: Pain 4 or less Pain Plan: tylenol prn Tomorrow's Labs & Rationales: no labs necessary Asif Carvajal 11/18/17 1032: Attending MD Review Statement Attending Statement Attending MD Statement: examined this patient, discuss w/resident/PA/HUNTING AND FISHING GUIDE, agreed w/resident/PA/HUNTING AND FISHING GUIDE, discussed with family, reviewed EMR data (avail), discussed with nursing, discussed with case mgmt, reviewed images, amended to note Attending Assessment/Plan: No new complaints. Medically stable for dsicharge. Follow up with cardiollogy Dr Leonard salazar in 1-2 weeks of discharge and PCP in 1 week of discharge.
[2017-11-18 08:22] LABS: ABSOLUTE BASOPHIL COUNT 0 /CUMM (0.0-0.2); ABSOLUTE EOSINOPHIL COUNT 0.4 /CUMM (0.0-0.7); ABSOLUTE GRANULOCYTE CT 6.2 /CUMM (1.4-6.5); ABSOLUTE LYMPH COUNT 2.2 /CUMM (1.2-3.4); ABSOLUTE MONOCYTE COUNT 0.7 /CUMM (0.10-0.60); BASOPHIL % 0.3 % (0.0-2.0); EOSINOPHIL % 4.3 % (0-5); GRANULOCYTE % 64.9 % (42.2-75.2); HEMATOCRIT 36.5 % (37-47); MEAN CORPUSCULAR HGB 25.9 PG (27.0-31.0); MEAN CORPUSCULAR HGB CONC 32.5 G/DL (33.0-37.0); MEAN CORPUSCULAR VOLUME 79.7 FL (81.0-99.0); MEAN PLATELET VOLUME 10.3 FL (7.4-10.4); PLATELET COUNT 201 /CUMM (130-400); RED BLOOD CELL CT 4.59 /CUMM (4.20-5.40); WHITE BLOOD CELL COUNT 9.5 /CUMM (4.8-10.8)
[2017-11-18 08:23] VITALS: BP 106/66
[2017-11-18] MEDS ORDERED: METOPROLOL TART50 M1 PO ×2 (10:23→14:38)
[2017-11-18] MEDS ORDERED: METOPROLOL TART25 M1 PO ×2 (10:23→14:38)
--- NOTE | 2017-11-18 11:06 | PN- Cardiology ---
Subjective Subjective: Feels well. No recurrent dizziness or nausea today. Denies chest pain, dyspnea , or palpitations. Objective Vital Signs and I&Os Vital Signs Date Time Temp Pulse Resp B/P B/P Pulse O2 O2 Flow FiO2 Mean Ox Delivery Rate 11/18 0823 11 106/66 11/18 0700 97.6 85 20 106/66 94 Room Air 11/17 2245 Room Air Room Air 11/17 2222 97.4 105 26 116/76 91 11/17 205 106 112/60 11/17 1450 98.2 69 20 110/60 94 11/17 1302 107 100/66 Intake & Output 11/18 1600 11/18 0800 11/18 0000 11/17 1600 11/17 0800 11/17 0000 Intake Total 150 50 430 120 100 Output Total 700 400 650 Balance -550 -350 -220 120 100 Intake, IV 30 Intake, Oral 150 50 400 120 100 Number 1 Bowel Movements Output, Urine 700 400 650 Patient 252 lb 254 lb Weight Weight Bed scale Measurement Method Physical Exam: General: no apparent distress. Alert. Eyes: No obvious scleral icterus. HEENT: No jugular venous distention or abnormal jugular venous pulsations. Cardiovascular: Normal intensity S1/S2. Regular Respiratory: Lungs clear to auscultation bilaterally. Abdomen: Soft, nontender with no guarding or rebound tenderness. Musculoskeletal: No clubbing or cyanosis noted Skin: warm Neurologic: No gross focal deficits noted. Current Medications: Current Medications Sig/Roxanne Start time Last Medication Dose Route Stop Time Status Admin Acetaminophen 650 MG ONCE ONE 11/18 0300 DC 11/18 PO 11/18 300 030 Acetaminophen 650 MG .STK-MED ONE 11/17 1336 DC PO 11/17 1337 Amitriptyline HCl 25 MG QPM 11/12 2099 AC 11/17 PO 2050 Apixaban 5 MG BID 11/15 1500 AC 11/18 PO 0823 Budesonide/ 2 PUF BID 11/12 09 AC 11/18 Formoterol Fumarate INH 0822 Guaifenesin 10 ML ONCE ONE 11/17 2229 DC 11/18 PO 11/17 2230 0308 Guaifenesin 600 MG Q12 11/16 2100 AC 11/18 PO 08 Levothyroxine Sodium 0.175 MG DAILY AC 11/14 2030 AC 11/18 PO 0605 Magnesium Sulfate 1 GM ONCE ONE 11/17 0915 DC 11/17 Dextrose/Water 100 ML IV 11/17 1314 1259 Metoprolol Tartrate 50 MG DAILY 11/18 0900 AC 11/18 PO 0823 Metoprolol Tartrate 25 MG QPM 11/17 2100 AC 11/17 PO 205 Omeprazole 40 MG DAILY AC 11/15 0700 AC 11/18 PO 0605 Prochlorperazine 10 MG TIDPRN PRN 11/14 1400 AC 11/17 PO 1452 Tiotropium [place] 1 PUF DAILY 11/12 0900 AC 11/18 INH 0823 Results Last 48 Hrs of Labs/Mics: Laboratory Tests 11/18/17 0639: Anion Gap 10, Estimated GFR > 60, BUN/Creatinine Ratio 20.0, Magnesium 1.7, CBC w Diff NO MAN DIFF REQ, RBC 4.59, MCV 79.7 L, MCH 25.9 L, MCHC 32.5 L, RDW 17.0 H, MPV 10.3, Gran % 64.9, Lymphocytes % 23.2, Monocytes % 7.3, Eosinophils % 4.3, Basophils % 0.3, Absolute Granulocytes 6.2, Absolute Lymphocytes 2.2, Absolute Monocytes 0.7 H, Absolute Eosinophils 0.4, Absolute Basophils 0 11/17/17 1500: Urine Color STRAW, Urine Clarity CLEAR, Urine pH 6.0, Ur Specific [place] <= 1.005, Urine Protein NEG, Urine Ketones NEG, Urine Nitrite NEG, Urine Bilirubin NEG, Urine Urobilinogen 0.2, Ur Leukocyte Esterase MOD H, Ur Microscopic SEDIMENT EXAMINED, Urine WBC 1-3 H, Ur Epithelial Cells RARE, Micro UA Comment MORE INFO: H, Urine Hemoglobin NEG, Urine Glucose NEG 11/17/17 0618: Anion Gap 9, Estimated GFR > 60, BUN/Creatinine Ratio 15.7, Phosphorus 4.1, Magnesium 1.7, Iron 21 L, TIBC 313, Ferritin 27.7, CBC w Diff NO MAN DIFF REQ, RBC 4.48, MCV 79.3 L, MCH 26.3 L, MCHC 33.1, RDW 17.0 H, MPV 10.0, Gran % 65.2, Lymphocytes % 22.0, Monocytes % 7.9, Eosinophils % 4.5, Basophils % 0.4, Absolute Granulocytes 5.9, Absolute Lymphocytes 2.0, Absolute Monocytes 0.7 H, Absolute Eosinophils 0.4, Absolute Basophils 0, Retic Count 2.05 H Recent Imaging Studies: Telemetry tracings were personally reviewed and shows sinus rhythm Assessment/Plan Assessment/Plan 1. Syncopal episode 2. Hypotension 3. Cyclic vomiting syndrome with diarrhea 4. New onset atrial fibrillation with tachycardia s/p INDY/CV 5. History of SVT on atenolol 6. Hypokalemia and hypomagnesemia with dehydration 7. Transaminitis; improving 8. Minimal troponin elevation not likely ischemic in etiology Doing well and offers no complaints today. Remains in sinus rhythm. She may be a candidate for implantable loop recorder in the future. She should follow-up in our office within 1 week of discharge. Shen James MD [facility] Continue telemetry? No
[2017-11-18] MEDS ORDERED: ELIQUIS5 M1 PO (15:03)
== END 2017-11-18 16:12 | disposition home health service (06) | DRG 309 ==
LOC: ERH 16:58 → ERHI 18:27 → 1NO 18:27 → CANRESERV 20:07 → ENRESERV 20:07 → CANRESERV 20:24 → ENRESERV 20:24 → ENTRNSPT 22:24 → EDTRNSPT 22:25 → EDTRNSPTSTS 22:25 → 1NO 22:31 → CMPTRNSPT 22:46 → CRI 11-12 09:06 → 1NO 11-13 22:44 → ENPENDDIS 11-18 10:24 → ENTRNSPT 11-18 15:24 → EDTRNSPTSTS 11-18 15:25 → CMPTRNSPT 11-18 15:37 → 1NO 11-18 16:12
PROVIDERS: Emergency Medicine; Internal Medicine; Internal Medicine Endocrinology, Diabetes & Metabolism; Student in an Organized Health Care Education/Training Program
PROC: 5A2204Z Restoration of Cardiac Rhythm, Single (ICD-10-PCS; principal; 2017-11-15)
PROC: B246ZZ4 Ultrasonography of Right and Left Heart, Transesophageal (ICD-10-PCS; principal; 2017-11-15)
DX: I48.91 Unspecified atrial fibrillation (principal); E87.2 Acidosis; Z68.41 Body mass index [BMI] 40.0-44.9, adult; I95.9 Hypotension, unspecified; I47.1 Supraventricular tachycardia; E86.0 Dehydration; G43.A1 Cyclical vomiting, in migraine, intractable; E87.6 Hypokalemia; E83.42 Hypomagnesemia; E03.9 Hypothyroidism, unspecified; K21.9 Gastro-esophageal reflux disease without esophagitis; K44.9 Diaphragmatic hernia without obstruction or gangrene; D50.9 Iron deficiency anemia, unspecified; Z98.84 Bariatric surgery status; R74.0 Nonspecific elevation of levels of transaminase and lactic acid dehydrogenase [LDH]; I95.1 Orthostatic hypotension; K52.9 Noninfective gastroenteritis and colitis, unspecified; J45.909 Unspecified asthma, uncomplicated; E66.01 Morbid (severe) obesity due to excess calories; Z90.710 Acquired absence of both cervix and uterus; Z90.49 Acquired absence of other specified parts of digestive tract; R94.31 Abnormal electrocardiogram [ECG] [EKG]; Z66 Do not resuscitate
CPT/HCPCS: 1NSP; CCU; 36415; 36592; 71045; 71046; 81001; 82436; 83630; 87015; 87045; 87328; 87329; 87899; 87899-59; 93005; 93010; 93306; 93325; 96365; 96374; 96375; 97110-GO; 97116-GO; 97161-GP; 97530-GO; 99291; J1160; J1644; J2405; J3420; J3490; J7040; J7042; J7060

== ENCOUNTER 2017-12-19 19:22 | Inpatient (IN) | payer OTHER ==
[~2017-12-19] VITALS: Ht 162.6 cm; Wt 110.9 kg
[~2017-12-19 19:22] MED LIST changes: +ELIQUIS5 M1 PO; +METOPROLOL TART25 M1 PO; +METOPROLOL TART50 M1 PO
--- NOTE | 2017-12-19 19:34 | ED CARDIAC/CP/PALPITATIONS ---
History of Present Illness General Chief Complaint: General Adult Stated Complaint: "JUST DIZZY AND NURSE SAID MY B/P IF HIGH" Source: patient Exam Limitations: no limitations Vital Signs & Intake/Output Vital Signs & Intake/Output Vital Signs Date Time Temp Pulse Resp B/P B/P Pulse O2 O2 Flow FiO2 Mean Ox Delivery Rate 12/20 0456 98.5 111 18 113/63 95 Nasal 2.0L Cannula 12/20 0345 94 12/20 0230 103 12/20 0129 98.0 110 18 117/77 95 Nasal 2.0L Cannula 12/19 2329 98.0 111 18 141/78 94 Nasal 2.0L Cannula 12/190 97.9 106 18 133/67 95 Nasal 2.0L Cannula 12/20 2055 110 20 121/58 96 Nasal 2.0L Cannula 12/19 2022 98.8 144 20 120/91 12/20 2019 101 107/69 12/19 2000 98.5 105 20 107/66 95 Nasal 2.0L Cannula 12/19 1945 98.8 144 18 120/91 93 ED Intake and Output 12/20 0000 12/19 1200 Intake Total 0 Output Total Balance 0 Intake, Oral 0 Patient 240 lb Weight Weight Reported by Patient Measurement Method Allergies Coded Allergies: No Known Allergies (11/11/17) Reconcile Medications Amitriptyline HCl 25 MG TABLET 1 TAB PO QPM CYCLICAL VOMITING (Reported) Apixaban (Eliquis) 5 MG TABLET 5 MG PO BID atrial fibrillation . Cholecalciferol (Vitamin D3) (Vitamin D3) 4,000 UNIT CAPSULE 1 CAP PO DAILY SUPPLEMENT (Reported) Cyanocobalamin (Vitamin B-12) (Cyanocobalamin Injection) 1,000 MCG/ML VIAL 1 ML IM Q30D SUPPLEMENT (Reported) Levothyroxine Sodium 175 MCG TABLET 1 TAB PO DAILY THYROID (Reported) Magnesium Oxide 400 MG TABLET 1 TAB PO DAILY SUPPLEMENT (Reported) Metoprolol Tartrate 50 MG TABLET 1 TAB PO BID atrial fibrillation . Mometasone/Formoterol (Dulera 100 Mcg/5 Mcg Inhaler) 100 MCG-5 MCG/ACTUATION HFA.AER.AD 1 PUF INH BID SOB (Reported) Multivit-Min/FA/Lycopen/Lutein (Centrum Silver Tablet) 0.4 MG-300 MCG-250 MCG TABLET 1 TAB PO DAILY SUPPLEMENT (Reported) Prochlorperazine Maleate (Compazine) 10 MG TABLET 1 TAB PO TID PRN NAUSEA Tiotropium [place] (Spiriva) 18 MCG CAP.W.DEV 1 CAP INH DAILY SOB (Reported) Triage Nurses Notes Reviewed? yes Onset: Gradual Associated Symptoms: palpitations HPI: 76 YO WOMAN h/o of atrial fibrillation, s/p cardioversion one month ago, presents with dizziness and palpitations x 1 day. "The visiting nurse said my blood pressure was off." She notes weakness, shortness of breath, and palpitations, without chest pain, fever, chills, nausea, vomiting, diarrhea. Past History Travel History Traveled to [place] past 21 day No Medical History Any Pertinent Medical History? see below for history Neurological: NONE EENT: NONE Cardiovascular: TACHY ARRHYTHMIA Respiratory: asthma Gastrointestinal: CYCLIC VOMITING SYNDROME DIVERTICULOSIS Hepatic: cholelithiasis Renal: NONE Musculoskeletal: NONE Psychiatric: NONE Endocrine: hypoparathyroidism, hypothyroidism Blood Disorders: anemia Cancer(s): NONE NUTRITION COORDINATOR/Reproductive: NONE Other Medical Hx: section x2, hysterectomy, cholecystectomy, gastric bypass. Hypothyroidism, tachy arrhythmia, macular degeneration, cataracts, congenital esotropia, cyclic vomiting syndrome, hypocalcemia, hyperparathyroidism, hiatal hernia, asthma, diverticulosis. Iron deficiency anemia. History of MRSA: No History of VRE: No History of CDIFF: No Tetanus Vaccine: 02/22/14 Surgical History Surgical History: cholecystectomy, , hysterectomy, GASTRIC BYPASS Psychosocial History Who do you live with Spouse Services at Home None What is your primary language Maltese Family History Family History, If Any: BROTHER FH: lung cancer FATHER, , Age 60+. FH: CHF (congestive heart failure) FH: diabetes mellitus Hx Contributory? No Review of Systems Review of Systems Constitutional: Denies: see HPI. Physical Exam Physical Exam Cardiovascular: irregularly irregular, tachy Comments: Review of Systems - except as otherwise noted in HPI Review of Systems Constitutional:no symptoms. EENTM:no symptoms. Respiratory:no symptoms. Cardiovascular:no symptoms. GI:no symptoms. Genitourinary:no symptoms. Musculoskeletal:no symptoms. Skin:no symptoms. Neurological/Psychological:no symptoms. Hematologic/Endocrine:no symptoms. Immunologic/Allergic:no symptoms. All Other Systems: Reviewed and Negative Physical Exam Physical Exam General Appearance: well developed/nourished, no apparent distress Head: atraumatic, normal appearance Eyes: Bilateral: normal appearance. Ears, Nose, Throat: normal pharynx, normal ENT inspection Neck: normal inspection, supple, full range of motion Respiratory: normal breath sounds, chest non-tender, no respiratory distress, quiet respiration, lungs clear Cardiovascular: see above Gastrointestinal: normal bowel sounds, soft, non-tender, no organomegaly Back: normal inspection, normal range of motion Extremities: normal inspection, normal capillary refill, normal range of motion, no edema Neurologic/Psych: no motor/sensory deficits, awake, alert, oriented x 3 Skin: intact, normal color, warm/dry Core Measures ACS in differential dx? No CVA/TIA Diagnosis No Sepsis Present: No Sepsis Focused Exam Completed? No Progress Differential Diagnosis: afib w/ rvr vs unstable angina vs mi vs other. Plan of Care: Orders Procedure Date/time Status Regular Diet 12/20 B Active TROPONIN LEVEL 12/20 0700 Active EKG 12/20 0700 Active CBC WITHOUT DIFFERENTIAL 12/20 0600 Active BASIC ELECTROLYTES PLUS BUN&CR 12/20 0600 Active TROPONIN LEVEL 12/20 0130 Complete EKG 12/20 0130 Active Lab Add-on Test 12/20 UNK Active TRC EVALUATION (GEN) 12/19 223 Active Pathway - chart 12/19 223 Active House Staff 12/20 2231 Active Code Status 12/19 223 Active Admit to inpatient 12/19 205 Active Patient Data 12/19 2048 Active Saline Lock 12/20 2039 Active Misc Message 12/19 204 Active ED Holding Orders 12/19 204 Active Vital Signs 12/19 204 Active Code Status 12/19 2040 Complete Intake & Output 12/19 202 Active THYROID STIMULATING HORMONE 12/19 1950 Complete PARTIAL THROMBOPLASTIN TIME 12/19 1935 Complete PROTHROMBIN TIME 12/19 1935 Complete TROPONIN LEVEL 12/19 1924 Complete LIPASE 12/19 1924 Complete HEPATIC FUNCTION PANEL 12/19 192 Complete CBC WITHOUT DIFFERENTIAL 12/19 192 Complete BASIC METABOLIC PANEL 12/19 192 Complete AMYLASE 12/19 192 Complete EKG 12/19 1924 Active VTE Mechanical Prophylaxis 12/19 UNK Active Current Medications Sig/Roxanne Start time Last Medication Dose Stop Time Status Admin Amitriptyline HCl 25 MG QPM 12/20 2100 AC (Elavil 25 Mg. Tablet) Apixaban 5 MG BID 07/31 0900 AC (Eliquis) Cholecalciferol 4,000 IU DAILY 12/20 899 AC (Vitamin D) Magnesium Oxide 400 MG DAILY 12/20 899 AC (Mag-Ox) Metoprolol Tartrate 50 MG BID 12/20 899 AC (Lopressor) Levothyroxine Sodium 0.175 MG DAILY AC 12/20 699 AC (Synthroid) Prochlorperazine 10 MG TID PRN 12/19 2245 AC (Compazine) Diltiazem HCl 125 MG Q8H 12/19 1945 AC 12/20 (Cardizem DRIP) 0450 Sodium Chloride 100 ML (Normal Saline 0.9%) Laboratory Tests 12/20/17 0120: Troponin I 0.03 12/19/17 1950: Anion Gap 15, Estimated GFR > 60, BUN/Creatinine Ratio 25.6 H, Glucose 140 H, Calcium 9.8, Total Bilirubin 0.3, Direct Bilirubin 0.3, AST 19, ALT 24, Alkaline Phosphatase 66, Troponin I 0.02, Total Protein 7.5, Albumin 4.1, Amylase 31, Lipase 86, TSH 3.720, PT 16.8 H, INR 1.53 H, APTT 33, CBC w Diff NO MAN DIFF REQ, RBC 5.52 H, MCV 79.6 L, MCH 26.2 L, MCHC 32.9 L, RDW 16.0 H, MPV 9.3, Gran % 60.6, Lymphocytes % 28.9, Monocytes % 7.5, Eosinophils % 1.5, Basophils % 1.5, Absolute Granulocytes 9.3 H, Absolute Lymphocytes 4.4 H, Absolute Monocytes 1.1 H, Absolute Eosinophils 0.2, Absolute Basophils 0.2 Diagnostic Imaging: Viewed by Me: Radiology Read. Discussed w/RAD: Radiology Read. CXR Impression: PATIENT: MORENA WINSTON PRESENT AGE: 76 PATIENT ACCOUNT NO: [id number] : 38 LOCATION: 1N ORDERING PHYSICIAN: Uziel Downs MD SERVICE DATE: 11/17/17- EXAM TYPE: RAD - XRY-CHEST XRAY, TWO VIEWS EXAMINATION: XR CHEST CLINICAL INFORMATION: Persistent cough. Evaluate for pneumonia. COMPARISON: Chest, most recent 11/11/2017. TECHNIQUE: AP and lateral views of the chest are obtained. FINDINGS: The heart is normal in size. The lungs are moderately hypoexpanded with mild bibasilar atelectasis. There is otherwise no definite congestion or focal consolidation. There are stable mild degenerative changes of the spine. IMPRESSION: Hypoexpanded lungs with mild bibasilar atelectasis. Otherwise, no acute cardiopulmonary process. DICTATED BY: Sawyer Saldana MD DATE/TIME DICTATED:11/17/171500 [employer] COMMANDING OFFICER:LELO DATE/TIME TRANSCRIBED:11/17/171500 CONFIDENTIAL, DO NOT COPY WITHOUT APPROPRIATE AUTHORIZATION. <Electronically signed in Other Vendor System> SIGNED BY: Sawyer Saldana MD 11/17/174 Initial ED EKG: afib w/ rvr Departure Departure Disposition: STILL A PATIENT Condition: Stable Clinical Impression Primary Impression: Atrial fibrillation with RVR Referrals: Juliet BARRIOS,Gustavo Ruiz (PCP/Family) Departure Forms: Customer Survey General Discharge Information Prescriptions: Current Visit Scripts Metoprolol Tartrate 1 TAB PO BID #30 TAB Ref 1 . Admission Note Spoke With: Miryam Mercedes MD Documentation of Exam: Documentation of any treatments & extenuating circumstances including Concerns Regarding Discharge (functional status, medication knowledge or non-compliance, living conditions, etc.) that warrant an admission rather than observation: pt with afib with rvr, now improved on dilt gtt... merits medical management. pt on eliquis.. no need for heparin gtt. cards to evaluate in AM. Critical Care Note Critical Care Note Critical Care Time: non-applicable
[2017-12-19 20:13] LABS: ABSOLUTE BASOPHIL COUNT 0.2 /CUMM (0.0-0.2); ABSOLUTE EOSINOPHIL COUNT 0.2 /CUMM (0.0-0.7); ABSOLUTE GRANULOCYTE CT 9.3 /CUMM (1.4-6.5); ABSOLUTE LYMPH COUNT 4.4 /CUMM (1.2-3.4); ABSOLUTE MONOCYTE COUNT 1.1 /CUMM (0.10-0.60); BASOPHIL % 1.5 % (0.0-2.0); EOSINOPHIL % 1.5 % (0-5); HEMATOCRIT 43.9 % (37-47); MEAN CORPUSCULAR HGB 26.2 PG (27.0-31.0); MEAN CORPUSCULAR HGB CONC 32.9 G/DL (33.0-37.0); MEAN CORPUSCULAR VOLUME 79.6 FL (81.0-99.0); MEAN PLATELET VOLUME 9.3 FL (7.4-10.4); PLATELET COUNT 336 /CUMM (130-400); RED BLOOD CELL CT 5.52 /CUMM (4.20-5.40); WHITE BLOOD CELL COUNT 15.3 /CUMM (4.8-10.8)
[2017-12-19 20:14] LABS: GRANULOCYTE % 60.6 % (42.2-75.2)
[2017-12-19 20:26] LABS: PT 16.8 SEC (9.4-12.5); PTT 33 SEC (25-37)
--- NOTE | 2017-12-19 21:17 | History & Physical ---
[facility] 12[facility]: General Information and [facility] MD Statement: I have seen and personally examined MORENA WINSTON and documented this H&P. The patient is a 76 year old F who presented with a patient stated chief complaint of [rapid heart rate]. Source of Information: patient, family Exam Limitations: no limitations History of Present Illness: Ms Noe is 76 year old woman with past medical history of atrial fibrilliation (diagnosed last michelle), hypothyroidism, cyclic vomiting syndrome, SVT, GERD, recently dishcharged from [facility] on 11/14/17 after being treated for recently diagnosed atrial fibrilliation s/p cardioversion was brought to the ER after she was found to have a rapid heart rate. Most of the history has been obtained from the son present at bedside. The son states that since the patient has been discharged she has been doing well though she does experience persistent dizziness since discharge. She had a recent follow up with her PCP Dr Chung over a week ago and everything was fine. Last week, the visiting nurse noticed that her heart rate was irregular. They called their block stacker Dr Raul Lay who asked her to come in to the office. She went on a Tuesday and had a holter monitor placed till Tuesday. They received the results today from the office that her heart rate was 'irregular' and to increase her metoprolol to 50mg BID. Today the visiting nurse also noticed while taking her vitals that her heart rate was rapid in the 140s. They called their block stacker again and spoke to Dr James who advised them to immediately come to the ER. At baseline the patient ambulates with the use of a walker. She has been working with home physical therapy. No falls reported since discharge. The patient herself has been asymptomatic and does not complain of any palpitations, shortness of breath, chest pain or any other associated symptoms. Allergies/Medications Allergies: Coded Allergies: No Known Allergies (11/11/17) Home Med list Amitriptyline HCl 25 MG TABLET 1 TAB PO QPM CYCLICAL VOMITING (Reported) Apixaban (Eliquis) 5 MG TABLET 5 MG PO BID atrial fibrillation . Cholecalciferol (Vitamin D3) (Vitamin D3) 4,000 UNIT CAPSULE 1 CAP PO DAILY SUPPLEMENT (Reported) Cyanocobalamin (Vitamin B-12) (Cyanocobalamin Injection) 1,000 MCG/ML VIAL 1 ML IM Q30D SUPPLEMENT (Reported) Levothyroxine Sodium 175 MCG TABLET 1 TAB PO DAILY THYROID (Reported) Magnesium Oxide 400 MG TABLET 1 TAB PO DAILY SUPPLEMENT (Reported) Metoprolol Tartrate 50 MG TABLET 1 TAB PO BID atrial fibrillation . Mometasone/Formoterol (Dulera 100 Mcg/5 Mcg Inhaler) 100 MCG-5 MCG/ACTUATION HFA.AER.AD 1 PUF INH BID SOB (Reported) Multivit-Min/FA/Lycopen/Lutein (Centrum Silver Tablet) 0.4 MG-300 MCG-250 MCG TABLET 1 TAB PO DAILY SUPPLEMENT (Reported) Prochlorperazine Maleate (Compazine) 10 MG TABLET 1 TAB PO TID PRN NAUSEA Tiotropium [place] (Spiriva) 18 MCG CAP.W.DEV 1 CAP INH DAILY SOB (Reported) Past History Travel History Traveled to [place] past 21 day No Medical History Neurological: NONE EENT: NONE Cardiovascular: AFIB Respiratory: asthma Gastrointestinal: CYCLIC VOMITING SYNDROME DIVERTICULOSIS Renal: NONE Musculoskeletal: NONE Psychiatric: NONE Endocrine: hypothyroidism Blood Disorders: anemia Cancer(s): NONE LINE WELDER/Reproductive: NONE History of MRSA: No History of VRE: No History of CDIFF: No Tetanus Vaccine: 02/22/14 Surgical History Surgical History: cholecystectomy, , hysterectomy, GASTRIC BYPASS Past Family/Social History Family History Relations & Conditions if any BROTHER FH: lung cancer FATHER, , Age 60+. FH: CHF (congestive heart failure) FH: diabetes mellitus Psychosocial History Who Do You Live With? spouse, child Services at Home: None Primary Language: Iraqi ETOH Use: occasional use Illicit Drug Use: denies illicit drug use Functional Ability ADLs Independent: dressing, eating, toileting, bathing. Ambulation: independent IADLs Independent: shopping, housework, finances, food prep, telephone, transportation , medication admin. Review of Systems Review of Systems Constitutional: Denies: chills, fever. EENTM: Reports: no symptoms. Cardiovascular: Denies: chest pain, palpitations. Respiratory: Reports: no symptoms. GI: Reports: no symptoms. Genitourinary: Reports: no symptoms. Musculoskeletal: Reports: joint pain. Skin: Reports: no symptoms. Neurological/Psychological: Reports: no symptoms. Hematologic/Endocrine: Reports: no symptoms. Exam & Diagnostic Data Last 24 Hrs of Vital Signs/I&O Vital Signs Date Time Temp Pulse Resp B/P B/P Pulse O2 O2 Flow FiO2 Mean Ox Delivery Rate 12/20 2219 97.9 106 18 133/67 95 Nasal 2.0L Cannula 12/20 2055 110 20 121/58 96 Nasal 2.0L Cannula 12/19 2022 98.8 144 20 120/91 12/20 2019 101 107/69 12/20 1999 98.5 105 20 107/66 95 Nasal 2.0L Cannula 12/19 1944 98.8 144 18 120/91 93 Physical Exam General Appearance Alert, Oriented X3, Cooperative, No Acute Distress Skin No Rashes, No Breakdown Skin Temp/Moisture Exam: Warm/Dry Sepsis Skin Exam (color): Normal for Ethnicity HEENT Atraumatic Cardiovascular Normal S1, Normal S2, No Murmurs, tachycardic Lungs Clear to Auscultation, Normal Air Movement Abdomen Soft, No Tenderness Neurological Normal Speech, Strength at 5/5 X4 Ext Extremities No Edema Last 24 Hrs of Labs/[place]: Laboratory Tests 12/19/17 1950: Anion Gap 15, Estimated GFR > 60, BUN/Creatinine Ratio 25.6 H, Glucose 140 H, Calcium 9.8, Total Bilirubin 0.3, Direct Bilirubin 0.3, AST 19, ALT 24, Alkaline Phosphatase 66, Troponin I 0.02, Total Protein 7.5, Albumin 4.1, Amylase 31, Lipase 86, PT 16.8 H, INR 1.53 H, APTT 33, CBC w Diff NO MAN DIFF REQ, RBC 5.52 H, MCV 79.6 L, MCH 26.2 L, MCHC 32.9 L, RDW 16.0 H, MPV 9.3, Gran % 60.6, Lymphocytes % 28.9, Monocytes % 7.5, Eosinophils % 1.5, Basophils % 1.5, Absolute Granulocytes 9.3 H, Absolute Lymphocytes 4.4 H, Absolute Monocytes 1.1 H, Absolute Eosinophils 0.2, Absolute Basophils 0.2 Assessment/Plan Assessment: Ms Noe is 76 year old woman with past medical history of atrial fibrilliation (diagnosed last michelle), hypothyroidism, cyclic vomiting syndrome, SVT, GERD, recently dishcharged from [facility] on 11/14/17 after being treated for recently diagnosed atrial fibrilliation s/p cardioversion was brought to the ER after she was found to have a rapid heart rate. In the ED she was found to have a heart rate of 148. She was given IV Diltiazem 10mg push followed by Cardizem drip. Assessment: 1. Atrial Fibrilliation with RVR Plan: * Admit patient to telemetry * Continue IV Cardizem drip. Currently at 15mg/hr * Cardiology consult in am. * Continue metoprolol 50mg BID. * She can be likely switched to oral Cardizem in am * rule out ACS with serial troponins and EKGs * Check TSH * No need for echocardiogram unless requested by block stacker as she had one last month. * Continue all other home medications. * Diet: Regular * DVT Prophylaxis: Eliquis * Code: DNI. Patient does not wish to be attached to ventilatory support but is okay with chest compressions. As Ranked By This Provider Problem List: 1. Atrial fibrillation with RVR Core Measures/Misc (02/06) Acute Coronary Syndrome ACS Diagnosis: No Congestive Heart Failure Congestive Heart Failure Diagnosis No Cerebrovascular Accident CVA/TIA Diagnosis: No VTE (View Protocol) VTE Risk Factors Age>40 No Mechanical VTE Prophylaxis d/t N/A MechProphylax Ordered No VTE Pharm Prophylaxis d/t NA PharmProphylax ordered Sepsis (View protocol) Sepsis Present: No If YES complete Sepsis Event Note If YES complete Sepsis Event Note Daren BARRIOSMiryam 12/20/176: Core Measures/Misc (02/06) Sepsis (View protocol) If YES complete Sepsis Event Note If YES complete Sepsis Event Note Attending MD Review Statement Attending Statement Attending MD Statement: examined this patient, discuss w/resident/PA/FINANCIAL SERVICES INTERN, agreed w/resident/PA/FINANCIAL SERVICES INTERN
[2017-12-19] MEDS ORDERED: METOPROLOL TART50 M1 PO (22:37)
--- NOTE | 2017-12-20 07:20 | PN- Housestaff ---
Yandel Servin 12/20/17 0719: Subjective Follow-up For: atrial fibrillation Complaints: pain scale (0-10) (dizziness, light headedness) Subjective: Patient continues to complain of uneasiness and dizziness. no history of difficulty ambulating. Review of Systems Constitutional: Denies: see HPI. EENTM: Denies: no symptoms. Cardiovascular: Reports: see HPI. Respiratory: Denies: no symptoms. Gastrointestinal: Denies: no symptoms. Genitourinary: Denies: no symptoms. Musculoskeletal: Denies: no symptoms. Skin: Denies: no symptoms. Neurological/Psychological: Reports: see HPI. Hematologic/Endocrine: Denies: no symptoms. Immunologic/Allergic: Denies: no symptoms. Objective Last 24 Hrs of Vital Signs/I&O Vital Signs Date Time Temp Pulse Resp B/P B/P Pulse O2 O2 Flow FiO2 Mean Ox Delivery Rate 12/20 1030 97.3 126 18 114/67 94 Nasal 2.0L Cannula 12/20 1025 94 Nasal 2.0L Cannula 12/20 0918 97.3 126 18 114/67 12/20 0844 97.3 126 18 114/67 92 Room Air 12/20 0614 98.6 108 18 109/70 94 Nasal 2.0L Cannula 12/20 0456 98.5 111 18 113/63 95 Nasal 2.0L Cannula 12/20 0345 94 12/20 0230 103 12/20 0129 98.0 110 18 117/77 95 Nasal 2.0L Cannula 12/19 2329 98.0 111 18 141/78 94 Nasal 2.0L Cannula 12/19 2220 97.9 106 18 133/67 95 Nasal 2.0L Cannula 12/19 2056 110 20 121/58 96 Nasal 2.0L Cannula 12/193 98.8 144 20 120/91 12/19 2020 101 107/69 12/19 2000 98.5 105 20 107/66 95 Nasal 2.0L Cannula 12/19 1945 98.8 144 18 120/91 93 Intake & Output 12/20 1600 12/20 0800 12/20 0000 Intake Total 100 0 Output Total 200 Balance -200 100 0 Intake, IV 100 Intake, Oral 0 Output, Urine 200 Patient 240 lb 240 lb Weight Weight Estimated Reported by Patient Measurement Method Physical Exam General Appearance: Alert, Oriented X3, Cooperative, No Acute Distress Skin: No Rashes, No Breakdown Skin Temp/Moisture Exam: Cool/Dry HEENT: PERRLA, EOMI, Mucous Membr. moist/pink Neck: No JVD, No thryomegaly Lymphatic: Axillary nl, Cervical nl Cardiovascular: Normal S1, Normal S2, No Murmurs Lungs: Clear to Auscultation Abdomen: Normal Bowel Sounds Neurological: Normal Speech, Strength at 5/5 X4 Ext, Normal Tone, Sensation Intact Extremities: No Clubbing, No Cyanosis, No Edema, Normal Pulses, No Tenderness/ Swelling Vascular: Normal Pulses Current Medications: Current Medications Sig/Roxanne Start time Last Medication Dose Route Stop Time Status Admin Amiodarone HCl 400 MG BID 12/20 1030 UNVr PO Amiodarone HCl 400 MG BID 12/20 1021 UNVr PO Amitriptyline HCl 25 MG QPM 12/20 2100 AC PO Amitriptyline HCl 25 MG ONCE ONE 12/19 2244 DC 12/19 PO 12/19 2245 2340 Apixaban 5 MG BID 12/20 899 AC 12/20 PO 0918 Cholecalciferol 4,000 IU DAILY 12/20 899 AC 12/20 PO 0918 Diltiazem HCl 0 .STK-MED ONE 12/19 2000 DC .ROUTE Diltiazem HCl 10 MG ONCE ONE 12/19 1944 DC 12/19 IV 12/19 Diltiazem HCl 125 MG Q8H 12/19 1944 AC 12/20 Sodium Chloride 100 ML IV 0450 Levothyroxine Sodium 0.175 MG DAILY AC 12/20 699 AC 12/20 PO 0639 Magnesium Oxide 400 MG DAILY 12/20 09 AC 12/20 PO 0918 Metoprolol Tartrate 50 MG BID 12/20 899 AC 12/20 PO 0918 Prochlorperazine 10 MG TID PRN 12/19 224 AC PO Last 24 Hrs of Lab/Jericho Results Last 24 Hrs of Labs/Mics: Laboratory Tests 12/20/17 0700: Troponin I Cancelled 12/20/17 0635: Anion Gap 12, Estimated GFR > 60, BUN/Creatinine Ratio 32.9 H, Troponin I 0.03, CBC w Diff NO MAN DIFF REQ, RBC 5.03, MCV 79.6 L, MCH 26.0 L, MCHC 32.7 L, RDW 16.1 H, MPV 9.8, Gran % 62.7, Lymphocytes % 28.0, Monocytes % 6.8, Eosinophils % 2.1, Basophils % 0.4, Absolute Granulocytes 7.7 H, Absolute Lymphocytes 3.4, Absolute Monocytes 0.8 H, Absolute Eosinophils 0.3, Absolute Basophils 0 12/20/17 0120: Troponin I 0.03 12/19/17 1950: Anion Gap 15, Estimated GFR > 60, BUN/Creatinine Ratio 25.6 H, Glucose 140 H, Calcium 9.8, Total Bilirubin 0.3, Direct Bilirubin 0.3, AST 19, ALT 24, Alkaline Phosphatase 66, Troponin I 0.02, Total Protein 7.5, Albumin 4.1, Amylase 31, Lipase 86, TSH 3.720, PT 16.8 H, INR 1.53 H, APTT 33, CBC w Diff NO MAN DIFF REQ, RBC 5.52 H, MCV 79.6 L, MCH 26.2 L, MCHC 32.9 L, RDW 16.0 H, MPV 9.3, Gran % 60.6, Lymphocytes % 28.9, Monocytes % 7.5, Eosinophils % 1.5, Basophils % 1.5, Absolute Granulocytes 9.3 H, Absolute Lymphocytes 4.4 H, Absolute Monocytes 1.1 H, Absolute Eosinophils 0.2, Absolute Basophils 0.2 Assessment/Plan Assessment: Ms Noe is 76 year old woman with past medical history of atrial fibrilliation (diagnosed last michelle), hypothyroidism, cyclic vomiting syndrome, SVT, GERD, recently dishcharged from [facility] on 11/14/17 after being treated for recently diagnosed atrial fibrilliation s/p cardioversion was brought to the ER after she was found to have a rapid heart rate. Problem List: 1. Atrial fibrillation with RVR patient was diagnosed with A Fib on 11/14/17 and was treated with cardioversion and started on eliquis. following which she continued to experience dizziness. - Today the patient had a HR of 140 during admission and was given cardizem - 15mg/hr and Metoprolol 50 mg - Patient will be admitted to telemetry for furthe monitoring -TSH , Troponin-is normal Following treatment with cardizem and metoprolol, the HR decreased to 110. - Patient was then started on amiodarone 400mg bid as per cardiology consult. continue Metorpolol - wean i.v cardizem -continue eliquis 2. Hypothyroidism continue levothyroxine sod 175 mcg Pain Ratin Pain Location: n/a Pain Goal: Remain pain free Pain Plan: n/a Tomorrow's Labs & Rationales: none Meryl BARRIOS,Deirdre 12/20/17 1118: Attending MD Review Statement Attending Statement Attending MD Statement: examined this patient, discuss w/resident/PA/SCALE OPERATOR, agreed w/resident/PA/SCALE OPERATOR, reviewed EMR data (avail), discussed with nursing, reviewed images Attending Assessment/Plan: 76-year-old female recent diagnosis of fibrillation status post cardioversion on November 14 on Eliquis as an outpatient, was found by visiting nurse to have a very rapid heart rate and now here with rapid atrial fibrillation. We spoke to Dr. Carrington and we are going to start her on p.o. amiodarone loading dose and begin to wean off the Cardizem. Dr. Draper will see her as he follows her for her outpatient pulmonary issues. We are going to continue the Eliquis and follow closely.
[2017-12-20 07:56] LABS: ABSOLUTE BASOPHIL COUNT 0 /CUMM (0.0-0.2); ABSOLUTE EOSINOPHIL COUNT 0.3 /CUMM (0.0-0.7); ABSOLUTE GRANULOCYTE CT 7.7 /CUMM (1.4-6.5); ABSOLUTE LYMPH COUNT 3.4 /CUMM (1.2-3.4); ABSOLUTE MONOCYTE COUNT 0.8 /CUMM (0.10-0.60); BASOPHIL % 0.4 % (0.0-2.0); EOSINOPHIL % 2.1 % (0-5); GRANULOCYTE % 62.7 % (42.2-75.2); HEMATOCRIT 40.1 % (37-47); MEAN CORPUSCULAR HGB CONC 32.7 G/DL (33.0-37.0); MEAN CORPUSCULAR VOLUME 79.6 FL (81.0-99.0); MEAN PLATELET VOLUME 9.8 FL (7.4-10.4); PLATELET COUNT 289 /CUMM (130-400); RBC DISTRIBUTION WIDTH 16.1 % (11.5-14.5); RED BLOOD CELL CT 5.03 /CUMM (4.20-5.40); WHITE BLOOD CELL COUNT 12.2 /CUMM (4.8-10.8)
--- NOTE | 2017-12-20 08:58 | Cons- Cardiology ---
General Information and HPI Consulting Request Date of Consult: 12/20/17 Requested By: Deirdre Sheth MD Reason for Consult: Atrial fibrillation Source of Information: patient Exam Limitations: no limitations History of Present Illness: The patient is a 76-year-old female with a history of paroxysmal atrial fibrillation on Eliquis status post recent INDY cardioversion November 14, 2017, cyclic vomiting syndrome, hypothyroidism, GERD, SVT, who now presents with tachycardia. Patient states that she had been doing well and went to see Dr. Chung approximately a week ago. At that time her vital signs are stable. Last week the visiting nurse noted that her heart rate was irregular. She was seen in our office and Holter monitor placed demonstrating atrial fibrillation. Her metoprolol was increased to 50 mg twice daily. On the day of admission and visiting nurse again noted her to be tachycardic, she called our office, and was instructed to come to the emergency room for evaluation. Patient states that she has been compliant with her medications. In the emergency room she was noted to be tachycardic and placed on IV diltiazem and dose titrated up. She is asymptomatic specifically denies chest pain, shortness of breath, or palpitations. Allergies/Medications Allergies: Coded Allergies: No Known Allergies (11/11/17) Home Med List: Amitriptyline HCl 25 MG TABLET 1 TAB PO QPM CYCLICAL VOMITING (Reported) Apixaban (Eliquis) 5 MG TABLET 5 MG PO BID atrial fibrillation . Cholecalciferol (Vitamin D3) (Vitamin D3) 4,000 UNIT CAPSULE 1 CAP PO DAILY SUPPLEMENT (Reported) Cyanocobalamin (Vitamin B-12) (Cyanocobalamin Injection) 1,000 MCG/ML VIAL 1 ML IM Q30D SUPPLEMENT (Reported) Levothyroxine Sodium 175 MCG TABLET 1 TAB PO DAILY THYROID (Reported) Magnesium Oxide 400 MG TABLET 1 TAB PO DAILY SUPPLEMENT (Reported) Metoprolol Tartrate 50 MG TABLET 1 TAB PO BID atrial fibrillation . Mometasone/Formoterol (Dulera 100 Mcg/5 Mcg Inhaler) 100 MCG-5 MCG/ACTUATION HFA.AER.AD 1 PUF INH BID SOB (Reported) Multivit-Min/FA/Lycopen/Lutein (Centrum Silver Tablet) 0.4 MG-300 MCG-250 MCG TABLET 1 TAB PO DAILY SUPPLEMENT (Reported) Prochlorperazine Maleate (Compazine) 10 MG TABLET 1 TAB PO TID PRN NAUSEA Tiotropium [place] (Spiriva) 18 MCG CAP.W.DEV 1 CAP INH DAILY SOB (Reported) Current Medications: Current Medications Sig/Roxanne Start time Last Medication Dose Route Stop Time Status Admin Amitriptyline HCl 25 MG QPM 12/20 2100 AC PO Amitriptyline HCl 25 MG ONCE ONE 12/19 2244 DC 12/19 PO 12/19 2245 2340 Apixaban 5 MG BID 12/20 899 AC PO Cholecalciferol 4,000 IU DAILY 12/20 899 AC PO Diltiazem HCl 0 .STK-MED ONE 12/19 2000 DC .ROUTE Diltiazem HCl 10 MG ONCE ONE 12/19 1944 DC 12/19 IV 12/19 Diltiazem HCl 125 MG Q8H 12/19 1944 AC 12/20 Sodium Chloride 100 ML IV 0450 Levothyroxine Sodium 0.175 MG DAILY AC 12/20 699 AC 12/20 PO 0639 Magnesium Oxide 400 MG DAILY 12/20 899 AC PO Metoprolol Tartrate 50 MG BID 12/20 899 AC PO Prochlorperazine 10 MG TID PRN 12/19 2244 AC PO Review of Systems Review of Systems: Eyes no blurred or double vision Ears no deafness or ringing Nose and throat no recurrent sinusitis Lungs per history of present illness Heart per history of present illness Abdomen occasional nausea and vomiting Musculoskeletal occasional muscle and joint pains Psych no anxiety or depression Neuro without recurrent headache or seizures Endocrine no heat or cold intolerance Past History Travel History Traveled to [place] past 21 day No Medical History Neurological: NONE EENT: NONE Cardiovascular: AFIB Respiratory: asthma Gastrointestinal: CYCLIC VOMITING SYNDROME DIVERTICULOSIS Renal: NONE Musculoskeletal: NONE Psychiatric: NONE Endocrine: hypothyroidism Blood Disorders: anemia Cancer(s): NONE ASSISTANT PRINCIPAL/Reproductive: NONE Surgical History Surgical History: cholecystectomy, , hysterectomy, GASTRIC BYPASS Family History Relations & Conditions If Any: BROTHER FH: lung cancer FATHER, , Age 60+. FH: CHF (congestive heart failure) FH: diabetes mellitus Psychosocial History Who Do You Live With? spouse, child Services at Home: None Primary Language: Bulgarian ETOH Use: occasional use Illicit Drug Use: denies illicit drug use Functional Ability ADLs Independent: dressing, eating, toileting, bathing. Ambulation: independent IADLs Independent: shopping, housework, finances, food prep, telephone, transportation , medication admin. Exam & Diagnostic Data Vital Signs and I&O Vital Signs Date Time Temp Pulse Resp B/P B/P Pulse O2 O2 Flow FiO2 Mean Ox Delivery Rate 12/20 0844 97.3 126 18 114/67 92 Room Air 12/20 0614 98.6 108 18 109/70 94 Nasal 2.0L Cannula 12/20 0456 98.5 111 18 113/63 95 Nasal 2.0L Cannula 12/20 0345 94 12/20 0230 103 12/20 0129 98.0 110 18 117/77 95 Nasal 2.0L Cannula 12/19 2329 98.0 111 18 141/78 94 Nasal 2.0L Cannula 12/19 2220 97.9 106 18 133/67 95 Nasal 2.0L Cannula 12/19 2056 110 20 121/58 96 Nasal 2.0L Cannula 12/19 2022 98.8 144 20 120/91 12/20 2019 101 107/69 12/19 2000 98.5 105 20 107/66 95 Nasal 2.0L Cannula 12/19 1945 98.8 144 18 120/91 93 Intake & Output 12/20 1600 12/20 0800 12/20 0000 12/19 1600 12/19 0800 12/19 0000 Intake Total 100 0 Output Total Balance 100 0 Intake, IV 100 Intake, Oral 0 Patient 240 lb Weight Weight Reported by Patient Measurement Method Physical Exam: Patient is a well-developed obese female appearing in no acute distress HEENT is unremarkable Neck is supple there is no JVD Lungs are clear Heart irregular rhythm S1 and S2 are normal no gallops or rubs 1/6.ejection murmur left sternal border Abdomen bowel sounds positive Extremities without edema Labs/Jericho Results: Laboratory Tests 12/20 12/20 12/20 0700 0635 0120 Chemistry Sodium (137 - 145 mmol/L) 138 Potassium (3.5 - 5.1 mmol/L) 4.2 Chloride (98 - 107 mmol/L) 102 Carbon Dioxide (22 - 30 mmol/L) 24 Anion Gap (5 - 16) 12 BUN (7 - 17 mg/dL) 23 H Creatinine (0.5 - 1.0 mg/dL) 0.7 Estimated GFR (>60 ml/min) > 60 BUN/Creatinine Ratio (7 - 25 %) 32.9 H Troponin I (< 0.11 ng/ml) Cancelled 0.03 0.03 Hematology CBC w Diff NO MAN DIFF REQ WBC (4.8 - 10.8 /CUMM) 12.2 H RBC (4.20 - 5.40 /CUMM) 5.03 Hgb (12.0 - 16.0 G/DL) 13.1 Hct (37 - 47 %) 40.1 MCV (81.0 - 99.0 FL) 79.6 L MCH (27.0 - 31.0 PG) 26.0 L MCHC (33.0 - 37.0 G/DL) 32.7 L RDW (11.5 - 14.5 %) 16.1 H Plt Count (130 - 400 /CUMM) 289 MPV (7.4 - 10.4 FL) 9.8 Gran % (42.2 - 75.2 %) 62.7 Lymphocytes % (20.5 - 51.1 %) 28.0 Monocytes % (1.7 - 9.3 %) 6.8 Eosinophils % (0 - 5 %) 2.1 Basophils % (0.0 - 2.0 %) 0.4 Absolute Granulocytes (1.4 - 6.5 /CUMM) 7.7 H Absolute Lymphocytes (1.2 - 3.4 /CUMM) 3.4 Absolute Monocytes (0.10 - 0.60 /CUMM) 0.8 H Absolute Eosinophils (0.0 - 0.7 /CUMM) 0.3 Absolute Basophils (0.0 - 0.2 /CUMM) 0 07/30 1950 Chemistry Sodium (137 - 145 mmol/L) 136 L Potassium (3.5 - 5.1 mmol/L) 4.8 Chloride (98 - 107 mmol/L) 98 Carbon Dioxide (22 - 30 mmol/L) 23 Anion Gap (5 - 16) 15 BUN (7 - 17 mg/dL) 23 H Creatinine (0.5 - 1.0 mg/dL) 0.9 Estimated GFR (>60 ml/min) > 60 BUN/Creatinine Ratio (7 - 25 %) 25.6 H Glucose (65 - 99 mg/dL) 140 H Calcium (8.4 - 10.2 mg/dL) 9.8 Total Bilirubin (0.2 - 1.3 mg/dL) 0.3 Direct Bilirubin (< 0.4 mg/dL) 0.3 AST (14 - 36 U/L) 19 ALT (9 - 52 U/L) 24 Alkaline Phosphatase (<127 U/L) 66 Troponin I (< 0.11 ng/ml) 0.02 Total Protein (6.3 - 8.2 g/dL) 7.5 Albumin (3.5 - 5.0 g/dL) 4.1 Amylase (30 - 110 U/L) 31 Lipase (23 - 300 U/L) 86 TSH (0.270 - 4.200 uIU/mL) 3.720 Coagulation PT (9.4 - 12.5 SEC) 16.8 H INR (0.90 - 1.19) 1.53 H APTT (25 - 37 SEC) 33 Hematology CBC w Diff NO MAN DIFF REQ WBC (4.8 - 10.8 /CUMM) 15.3 H RBC (4.20 - 5.40 /CUMM) 5.52 H Hgb (12.0 - 16.0 G/DL) 14.4 Hct (37 - 47 %) 43.9 MCV (81.0 - 99.0 FL) 79.6 L MCH (27.0 - 31.0 PG) 26.2 L MCHC (33.0 - 37.0 G/DL) 32.9 L RDW (11.5 - 14.5 %) 16.0 H Plt Count (130 - 400 /CUMM) 336 MPV (7.4 - 10.4 FL) 9.3 Gran % (42.2 - 75.2 %) 60.6 Lymphocytes % (20.5 - 51.1 %) 28.9 Monocytes % (1.7 - 9.3 %) 7.5 Eosinophils % (0 - 5 %) 1.5 Basophils % (0.0 - 2.0 %) 1.5 Absolute Granulocytes (1.4 - 6.5 /CUMM) 9.3 H Absolute Lymphocytes (1.2 - 3.4 /CUMM) 4.4 H Absolute Monocytes (0.10 - 0.60 /CUMM) 1.1 H Absolute Eosinophils (0.0 - 0.7 /CUMM) 0.2 Absolute Basophils (0.0 - 0.2 /CUMM) 0.2 Diagnostic Data EKG Results Atrial fibrillation with rapid ventricular response nonspecific ST-T wave changes Assessment/Plan Assessment/Plan 1. Atrial fibrillation with rapid ventricular response. She recently had an episode that required INDY cardioversion. She had maintained sinus rhythm and Eliquis was continued for stroke prevention. I am concerned that the etiology to her recurrent atrial fibrillation may be secondary to amitriptyline she takes for cyclical vomiting syndrome. Metoprolol is insufficient to maintain sinus rhythm. 2. Cyclical vomiting syndrome on amitriptyline 3. GERD 4. Hypothyroidism TSH is normal Recommendations 1. Patient will be admitted to telemetry for further monitoring 2. I would continue her metoprolol 3. Would start amiodarone if cleared by Dr. Draper. Would load with 400 mg p.o. twice daily. 4. Would discuss possibly discontinuing amitriptyline with Dr. Milner her vacuum spindle sander 5. We will consider possible INDY cardioversion after amiodarone load if she does not revert to sinus rhythm. 6. Continue Eliquis for stroke prevention 7. Wean off IV Cardizem. Thank you for allowing [facility] to participate in the care of your patient. Consult Acknowledgment - Thank you for your consult request.
[2017-12-20 10:30] VITALS: BP 114/67
[2017-12-20 15:27] VITALS: BP 100/70
--- NOTE | 2017-12-20 17:14 | Cons- Pulmonary ---
General Information and HPI Consulting Request Date of Consult: 12/20/17 Requested By: med team History of Present Illness: this is a lady with combined obstructive restrictive lung disease with normal PFTs, bilateral atelectasis, paroxysmal atrial fibrillation here with rapid ventricular response. Consult was asked to see was she could get amiodarone. No recent cough wheezing shortness of breath. Her previous PFTs were normal. 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 She has had previous gastric bypass, cyclical vomiting. GERD She has dyspnea on minimal exertion which has been chronic She has paroxysmal atrial fibrillation for which she is on anticoagulation Her other medical problems were noted Review of symptoms unremarkable Allergies/Medications Allergies: Coded Allergies: No Known Allergies (11/11/17) Home Med List: Amitriptyline HCl 25 MG TABLET 1 TAB PO QPM CYCLICAL VOMITING (Reported) Apixaban (Eliquis) 5 MG TABLET 5 MG PO BID atrial fibrillation . Cholecalciferol (Vitamin D3) (Vitamin D3) 4,000 UNIT CAPSULE 1 CAP PO DAILY SUPPLEMENT (Reported) Cyanocobalamin (Vitamin B-12) (Cyanocobalamin Injection) 1,000 MCG/ML VIAL 1 ML IM Q30D SUPPLEMENT (Reported) Levothyroxine Sodium 175 MCG TABLET 1 TAB PO DAILY THYROID (Reported) Magnesium Oxide 400 MG TABLET 1 TAB PO DAILY SUPPLEMENT (Reported) Metoprolol Tartrate 50 MG TABLET 1 TAB PO BID atrial fibrillation . Mometasone/Formoterol (Dulera 100 Mcg/5 Mcg Inhaler) 100 MCG-5 MCG/ACTUATION HFA.AER.AD 1 PUF INH BID SOB (Reported) Multivit-Min/FA/Lycopen/Lutein (Centrum Silver Tablet) 0.4 MG-300 MCG-250 MCG TABLET 1 TAB PO DAILY SUPPLEMENT (Reported) Prochlorperazine Maleate (Compazine) 10 MG TABLET 1 TAB PO TID PRN NAUSEA Tiotropium [place] (Spiriva) 18 MCG CAP.W.DEV 1 CAP INH DAILY SOB (Reported) Review of Systems Review of Systems Constitutional: Denies: see HPI. Past History Travel History Traveled to [place] past 21 day No Medical History Blood Transfusion Hx: No Neurological: NONE EENT: NONE Cardiovascular: AFIB Respiratory: asthma Gastrointestinal: CYCLIC VOMITING SYNDROME DIVERTICULOSIS Renal: NONE Musculoskeletal: NONE Psychiatric: NONE Endocrine: hypothyroidism Blood Disorders: anemia Cancer(s): NONE MEDICAL ASST/Reproductive: NONE Surgical History Surgical History: cholecystectomy, , hysterectomy, GASTRIC BYPASS Family History Relations & Conditions If Any: BROTHER FH: lung cancer FATHER, , Age 60+. FH: CHF (congestive heart failure) FH: diabetes mellitus Psychosocial History Where Do You Live? Home Who Do You Live With? spouse, child Services at Home: None Primary Language: Greek Smoking Status: Never Smoked ETOH Use: occasional use Illicit Drug Use: denies illicit drug use Functional Ability ADLs Independent: dressing, eating, toileting, bathing. Ambulation: independent IADLs Independent: shopping, housework, finances, food prep, telephone, transportation , medication admin. Exam & Diagnostic Data Last 24 Hrs of Vital Signs/I&O Vital Signs Date Time Temp Pulse Resp B/P B/P Pulse O2 O2 Flow FiO2 Mean Ox Delivery Rate 12/20 1527 98.0 133 20 100/70 94 Nasal 2.0L Cannula 12/20 1452 Nasal 2.0L Cannula 12/20 1418 97.7 104 22 123/72 96 Nasal 2.0L Cannula 12/20 1049 97.3 126 18 114/67 12/20 1033 94 Nasal 2.0L Cannula 12/20 1030 97.3 126 18 114/67 94 Nasal 2.0L Cannula 12/20 1025 94 Nasal 2.0L Cannula 12/20 0918 97.3 126 18 114/67 12/20 0844 97.3 126 18 114/67 92 Room Air 12/20 0614 98.6 108 18 109/70 94 Nasal 2.0L Cannula 12/20 0456 98.5 111 18 113/63 95 Nasal 2.0L Cannula 12/20 0345 94 12/20 0230 103 12/20 0129 98.0 110 18 117/77 95 Nasal 2.0L Cannula 12/19 2329 98.0 111 18 141/78 94 Nasal 2.0L Cannula 12/19 2220 97.9 106 18 133/67 95 Nasal 2.0L Cannula 12/196 110 20 121/58 96 Nasal 2.0L Cannula 12/19 2022 98.8 144 20 120/91 12/19 2020 101 107/69 12/20 1999 98.5 105 20 107/66 95 Nasal 2.0L Cannula 12/19 1945 98.8 144 18 120/91 93 Intake & Output 12/20 1600 12/20 0800 12/20 0000 Intake Total 100 0 Output Total 200 Balance -200 100 0 Intake, IV 100 Intake, Oral 0 Output, Urine 200 Patient 237 lb 240 lb Weight Weight Bed scale Reported by Patient Measurement Method Last 48 Hrs of Labs/Jericho: Laboratory Tests 12/20/17 0700: Troponin I Cancelled 12/20/17 0635: Anion Gap 12, Estimated GFR > 60, BUN/Creatinine Ratio 32.9 H, Troponin I 0.03, CBC w Diff NO MAN DIFF REQ, RBC 5.03, MCV 79.6 L, MCH 26.0 L, MCHC 32.7 L, RDW 16.1 H, MPV 9.8, Gran % 62.7, Lymphocytes % 28.0, Monocytes % 6.8, Eosinophils % 2.1, Basophils % 0.4, Absolute Granulocytes 7.7 H, Absolute Lymphocytes 3.4, Absolute Monocytes 0.8 H, Absolute Eosinophils 0.3, Absolute Basophils 0 12/20/17 0120: Troponin I 0.03 12/19/17 1950: Anion Gap 15, Estimated GFR > 60, BUN/Creatinine Ratio 25.6 H, Glucose 140 H, Calcium 9.8, Total Bilirubin 0.3, Direct Bilirubin 0.3, AST 19, ALT 24, Alkaline Phosphatase 66, Troponin I 0.02, Total Protein 7.5, Albumin 4.1, Amylase 31, Lipase 86, TSH 3.720, PT 16.8 H, INR 1.53 H, APTT 33, CBC w Diff NO MAN DIFF REQ, RBC 5.52 H, MCV 79.6 L, MCH 26.2 L, MCHC 32.9 L, RDW 16.0 H, MPV 9.3, Gran % 60.6, Lymphocytes % 28.9, Monocytes % 7.5, Eosinophils % 1.5, Basophils % 1.5, Absolute Granulocytes 9.3 H, Absolute Lymphocytes 4.4 H, Absolute Monocytes 1.1 H, Absolute Eosinophils 0.2, Absolute Basophils 0.2 Assessment/Plan Impression/Plan: pupils reactive extraocular movements intact Obese lady Neck supple no JVD Chest clear to auscultation Heart S1-S2 was heard irregular rhythm systolic murmur noted Abdominal exam obese bowel sounds were heard Trace edema Chest x-ray showed bibasal atelectasis IMPRESSION This is a lady with mixed obstructive restrictive lung disease, history of small airway disease, GERD, cyclical vomiting, proximal atrial fibrillation here with atrial fibrillation with rapid ventricular response. Amiodarone uses being contemplated. At this time she is medically stable. Her issues include Mixed obstructive and mixed active lung disease which is stable Small airway disease which is stable and she continues to be on Spiriva GERD stable Periodic cyclical vomiting stable now not vomiting Proximal atrial fibrillation with rapid ventricular response Morbid obesity with previous gastric bypass now stable No significant interstitial lung disease RECOMMENDATION Patient can go ahead with her amiodarone. No prior significant ILD. We'll watch her closely in the next few weeks. Continue her Spiriva Keep the head of bed elevated Continueall medications as noted We'll follow as needed Consult Acknowledgment - Thank you for your consult request.
[2017-12-20 21:49] VITALS: BP 98/60
--- NOTE | 2017-12-21 06:24 | PN- Housestaff ---
Yandel Servin 12/21/17 0623: Subjective Follow-up For: Atrial fibrillation Complaints: no complaints Tele-Events Since Last Visit: Heart rate 162, PVCs noted Subjective: Patient feels better denies any complaint except for some mild cough. No shortness of breath. no chest pain. no palpitations .patient is ambulating well without any symptoms of syncope or feeling dizzy. Review of Systems Constitutional: Reports: see HPI. Objective Last 24 Hrs of Vital Signs/I&O Vital Signs Date Time Temp Pulse Resp B/P B/P Pulse O2 O2 Flow FiO2 Mean Ox Delivery Rate 12/21 1443 98.0 103 18 114/64 94 Room Air 12/21 0821 113 118/60 12/21 0821 113 118/60 12/21 0800 92 Room Air 12/21 0640 97.8 117 18 114/66 94 Nasal Cannula 12/21 0000 93 Nasal 2.0L Cannula 12/20 2149 97.7 120 18 98/60 95 Nasal Cannula 12/20 1852 Nasal 2.0L Cannula 12/20 1808 122 108/60 12/20 1808 122 108/60 12/20 1600 Nasal 2.0L Cannula Intake & Output 12/21 1600 12/21 0800 12/21 0000 Intake Total 720 180 120 Output Total 900 300 Balance -180 180 -180 Intake, IV 80 20 Intake, Oral 720 100 100 Number 1 1 Bowel Movements Output, Urine 900 300 Patient 249 lb Weight Weight Bed scale Measurement Method Physical Exam General Appearance: Alert, Oriented X3, Cooperative, No Acute Distress Cardiovascular: Regular Rate, No Murmurs Lungs: Clear to Auscultation, Normal Air Movement Abdomen: Normal Bowel Sounds, Soft, No Tenderness, No Hepatospenomegaly, No Masses Neurological: Normal Speech, Strength at 5/5 X4 Ext, Normal Tone, Sensation Intact Extremities: No Clubbing, No Cyanosis, No Edema, Normal Pulses, No Tenderness/ Swelling Assessment/Plan Assessment: Ms. Villegas is 76-year-old female with past medical history of atrial fibrillation diagnosed on 11/13/2017 and was treated with cardioversion, and cyclical vomiting syndrome treated with amitriptyline, presented to the ED with atrial fibrillation with rapid ventricular rate. Problem List: 1. Atrial fibrillation with RVR Patient was started on Cardizem drip 10 mL this a.m. and metoprolol 50 mg twice daily, and amiodarone 400 mg twice daily with a target heart rate of 110. Continue Eliquis Patient also has a history of cyclic vomiting syndrome and is on amitriptyline, which will be continued as per cardiology consult. As per cardiology consult if the patient does not chemically cardiovert plan for electrical cardioversion on Tuesday If patient is planned for cardioversion on Tuesday, patient must remain n.p.o. starting midnight after Pulmonology was consulted regarding the use of amiodarone for her mixed obstructive and restrictive lung disease. Pulmonology advised to continue amiodarone as there is no ILD. Head and elevation Continue Spiriva Pain Ratin Pain Location: na Pain Goal: Remain pain free Pain Plan: noine Tomorrow's Labs & Rationales: none DVT/Prophylaxis: pharmacological Deirdre Sheth MD 12/21/17 1100: Attending MD Review Statement Attending Statement Attending MD Statement: examined this patient, discuss w/resident/PA/VIROLOGIST, agreed w/resident/PA/VIROLOGIST, discussed with family, reviewed EMR data (avail), discussed with nursing, discussed with case mgmt, reviewed images Attending Assessment/Plan: Patient with A. fib with rapid ventricular response. She is on IV Cardizem, by mouth metoprolol and was started on by mouth amiodarone loading. We also have a on Eliquis. She was recently cardioverted in October and the plan if she continues to have such a rapid heart rate will be tentative cardioversion on Tuesday. She has underlying restrictive lung disease was seen by Dr. Draper and also has morbid obesity with a BMI of greater than 40.
[2017-12-21 06:40] VITALS: BP 114/66
[2017-12-21 07:55] LABS: ABSOLUTE BASOPHIL COUNT 0.1 /CUMM (0.0-0.2); ABSOLUTE EOSINOPHIL COUNT 0.3 /CUMM (0.0-0.7); ABSOLUTE GRANULOCYTE CT 8.6 /CUMM (1.4-6.5); ABSOLUTE LYMPH COUNT 2.7 /CUMM (1.2-3.4); BASOPHIL % 0.4 % (0.0-2.0); EOSINOPHIL % 2.3 % (0-5); GRANULOCYTE % 67.8 % (42.2-75.2); HEMATOCRIT 40.3 % (37-47); MEAN CORPUSCULAR HGB 25.7 PG (27.0-31.0); MEAN CORPUSCULAR HGB CONC 32.2 G/DL (33.0-37.0); MEAN CORPUSCULAR VOLUME 79.8 FL (81.0-99.0); MEAN PLATELET VOLUME 9.9 FL (7.4-10.4); PLATELET COUNT 281 /CUMM (130-400); RBC DISTRIBUTION WIDTH 15.7 % (11.5-14.5); RED BLOOD CELL CT 5.06 /CUMM (4.20-5.40); WHITE BLOOD CELL COUNT 12.6 /CUMM (4.8-10.8)
--- NOTE | 2017-12-21 11:32 | PN- Cardiology ---
Subjective Subjective: The patient is resting comfortably and continues to deny palpitations. Objective Vital Signs and I&Os Vital Signs Date Time Temp Pulse Resp B/P B/P Pulse O2 O2 Flow FiO2 Mean Ox Delivery Rate 12/21 820 113 118/60 12/21 0821 113 118/60 12/21 0800 92 Room Air 12/21 0640 97.8 117 18 114/66 94 Nasal Cannula 12/21 0000 93 Nasal 2.0L Cannula 12/20 2149 97.7 120 18 98/60 95 Nasal Cannula 12/20 1852 Nasal 2.0L Cannula 12/20 1808 122 108/60 12/20 1808 122 108/60 12/20 1600 Nasal 2.0L Cannula 12/20 1527 98.0 133 20 100/70 94 Nasal 2.0L Cannula 12/20 1452 Nasal 2.0L Cannula 12/20 1418 97.7 104 22 123/72 96 Nasal 2.0L Cannula Intake & Output 12/21 1600 12/21 0812/21 0000 12/20 1600 12/20 0800 12/20 0000 Intake Total 180 120 100 0 Output Total 300 200 Balance 180 -180 -200 100 0 Intake, IV 80 20 100 Intake, Oral 100 100 0 Number 1 Bowel Movements Output, Urine 300 200 Patient 249 lb 237 lb 240 lb Weight Weight Bed scale Bed scale Reported by Patient Measurement Method Physical Exam: General: no apparent distress. Alert. Eyes: No obvious scleral icterus. HEENT: No jugular venous distention or abnormal jugular venous pulsations. Cardiovascular: Normal intensity S1/S2. Irregular Respiratory: Lungs clear to auscultation bilaterally. Abdomen: Soft, nontender with no guarding or rebound tenderness. Musculoskeletal: No clubbing or cyanosis noted Skin: warm Neurologic: No gross focal deficits noted Current Medications: Current Medications Sig/Roxanne Start time Last Medication Dose Route Stop Time Status Admin Acetaminophen 650 MG ONCE ONE 12/20 2014 DC 12/20 PO 12/20 Amiodarone HCl 400 MG BID 12/20 1030 AC 12/21 PO 08 Amitriptyline HCl 10 MG QPM 12/21 2100 CAN PO Amitriptyline HCl 25 MG QPM 12/21 2100 AC PO Amitriptyline HCl 25 MG QPM 12/20 2100 DC 12/20 PO 2017 Apixaban 5 MG BID 12/20 0900 AC 12/21 PO 08 Cholecalciferol 4,000 IU DAILY 12/20 899 AC 12/21 PO 0821 Diltiazem HCl 125 MG Q12H 12/21 010 AC 12/21 Sodium Chloride 100 ML IV 0241 Diltiazem HCl 125 MG Q8H 12/19 1945 DC 12/20 Sodium Chloride 100 ML IV 1053 Levothyroxine Sodium 0.175 MG DAILY AC 12/20 699 AC 12/21 PO 0517 Magnesium Oxide 400 MG DAILY 12/20 899 AC 12/21 PO 0821 Metoprolol Tartrate 50 MG BID 12/20 899 AC 12/21 PO 0821 Prochlorperazine 10 MG TID PRN 12/19 2245 AC PO Tiotropium [place] 1 PUF DAILY 12/21 899 AC 12/21 INH 1000 Results Last 48 Hrs of Labs/Mics: Laboratory Tests 12/21/17 0645: CBC w Diff NO MAN DIFF REQ, RBC 5.06, MCV 79.8 L, MCH 25.7 L, MCHC 32.2 L, RDW 15.7 H, MPV 9.9, Gran % 67.8, Lymphocytes % 21.3, Monocytes % 8.2, Eosinophils % 2.3, Basophils % 0.4, Absolute Granulocytes 8.6 H, Absolute Lymphocytes 2.7, Absolute Monocytes 1.0 H, Absolute Eosinophils 0.3, Absolute Basophils 0.1 12/20/17 0700: Troponin I Cancelled 12/20/17 0635: Anion Gap 12, Estimated GFR > 60, BUN/Creatinine Ratio 32.9 H, Troponin I 0.03, CBC w Diff NO MAN DIFF REQ, RBC 5.03, MCV 79.6 L, MCH 26.0 L, MCHC 32.7 L, RDW 16.1 H, MPV 9.8, Gran % 62.7, Lymphocytes % 28.0, Monocytes % 6.8, Eosinophils % 2.1, Basophils % 0.4, Absolute Granulocytes 7.7 H, Absolute Lymphocytes 3.4, Absolute Monocytes 0.8 H, Absolute Eosinophils 0.3, Absolute Basophils 0 12/20/17 0120: Troponin I 0.03 12/19/17 1950: Anion Gap 15, Estimated GFR > 60, BUN/Creatinine Ratio 25.6 H, Glucose 140 H, Calcium 9.8, Total Bilirubin 0.3, Direct Bilirubin 0.3, AST 19, ALT 24, Alkaline Phosphatase 66, Troponin I 0.02, Total Protein 7.5, Albumin 4.1, Amylase 31, Lipase 86, TSH 3.720, PT 16.8 H, INR 1.53 H, APTT 33, CBC w Diff NO MAN DIFF REQ, RBC 5.52 H, MCV 79.6 L, MCH 26.2 L, MCHC 32.9 L, RDW 16.0 H, MPV 9.3, Gran % 60.6, Lymphocytes % 28.9, Monocytes % 7.5, Eosinophils % 1.5, Basophils % 1.5, Absolute Granulocytes 9.3 H, Absolute Lymphocytes 4.4 H, Absolute Monocytes 1.1 H, Absolute Eosinophils 0.2, Absolute Basophils 0.2 Recent Imaging Studies: Telemetry tracings are personally reviewed and show atrial fibrillation Assessment/Plan Assessment/Plan 1. Atrial fibrillation with rapid ventricular response. She recently had an episode that required INDY cardioversion. She had maintained sinus rhythm and Eliquis was continued for stroke prevention. 2. Cyclical vomiting syndrome on amitriptyline 3. GERD 4. Hypothyroidism TSH is normal Patient remains in atrial fibrillation with some tachycardia continuing to require intravenous Cardizem drip. Continue oral amiodarone and if she does not chemically cardiovert will plan for possible electrical cardioversion on Tuesday; since she has been maintained on uninterrupted anticoagulation since her recent INDY she will not require repeat transesophageal study. Continue on uninterrupted anticoagulation and please keep the patient n.p.o. after midnight if she remains in atrial fibrillation. Shen James MD [facility] Continue telemetry? Yes
--- NOTE | 2017-12-21 13:37 | PN- Pulmonary ---
Subjective HPI/Critical Care Issues: The patient is resting comfortably and continues to deny palpitations. Objective Current Medications: Current Medications Sig/Roxanne Start time Last Medication Dose Route Stop Time Status Admin Acetaminophen 650 MG ONCE ONE 12/20 2014 DC 12/20 PO 12/20 Amiodarone HCl 400 MG BID 12/20 1030 AC 12/21 PO 0821 Amitriptyline HCl 10 MG QPM 12/21 2100 CAN PO Amitriptyline HCl 25 MG QPM 12/21 2100 AC PO Amitriptyline HCl 25 MG QPM 12/20 2100 DC 12/20 PO 2017 Apixaban 5 MG BID 12/20 0900 AC 12/21 PO 0821 Cholecalciferol 4,000 IU DAILY 12/20 0900 AC 12/21 PO 0821 Diltiazem HCl 125 MG Q12H 12/21 0100 AC 12/21 Sodium Chloride 100 ML IV 1255 Diltiazem HCl 125 MG Q8H 12/19 1945 DC 12/20 Sodium Chloride 100 ML IV 1053 Levothyroxine Sodium 0.175 MG DAILY AC 12/20 0700 AC 12/21 PO 0517 Magnesium Oxide 400 MG DAILY 12/20 0900 AC 12/21 PO 0821 Metoprolol Tartrate 50 MG BID 12/20 0900 AC 12/21 PO 0821 Prochlorperazine 10 MG TID PRN 12/19 2245 AC PO Tiotropium [place] 1 PUF DAILY 12/21 0900 AC 12/21 INH 1000 Vital Signs & I&O Last 24 Hrs of Vitals and I&O: Vital Signs Date Time Temp Pulse Resp B/P B/P Pulse O2 O2 Flow FiO2 Mean Ox Delivery Rate 12/21 820 113 118/60 12/21 0821 113 118/60 12/21 0800 92 Room Air 12/21 0640 97.8 117 18 114/66 94 Nasal Cannula 12/21 0000 93 Nasal 2.0L Cannula 12/20 2149 97.7 120 18 98/60 95 Nasal Cannula 12/20 1852 Nasal 2.0L Cannula 12/20 1808 122 108/60 12/20 1808 122 108/60 12/20 1600 Nasal 2.0L Cannula 12/20 1527 98.0 133 20 100/70 94 Nasal 2.0L Cannula 12/20 1452 Nasal 2.0L Cannula 12/20 1418 97.7 104 22 123/72 96 Nasal 2.0L Cannula Intake & Output 12/21 1600 12/21 0800 08 0000 Intake Total 180 120 Output Total 400 300 Balance -400 180 -180 Intake, IV 80 20 Intake, Oral 100 100 Number 1 Bowel Movements Output, Urine 400 300 Patient 249 lb Weight Weight Bed scale Measurement Method Impression/Plan Impression/Plan Impression/Plan: pupils reactive extraocular movements intact Obese lady Neck supple no JVD Chest clear to auscultation Heart S1-S2 was heard irregular rhythm systolic murmur noted Abdominal exam obese bowel sounds were heard Trace edema Chest x-ray showed bibasal atelectasis IMPRESSION This is a lady with mixed obstructive restrictive lung disease, history of small airway disease, GERD, cyclical vomiting, proximal atrial fibrillation here with atrial fibrillation with rapid ventricular response. Amiodarone uses being contemplated. At this time she is medically stable. Her issues include Mixed obstructive and mixed active lung disease which is stable Small airway disease which is stable and she continues to be on Spiriva GERD stable Periodic cyclical vomiting stable now not vomiting Proximal atrial fibrillation with rapid ventricular response Morbid obesity with previous gastric bypass now stable No significant interstitial lung disease RECOMMENDATION Cont amiodarone Continue her Spiriva Keep the head of bed elevated Continue all medications as noted We'll follow as needed will sign off stable for INDY
[2017-12-21 14:43] VITALS: BP 114/64
[2017-12-21 23:13] VITALS: BP 104/60
[2017-12-22 06:31] VITALS: BP 100/56
--- NOTE | 2017-12-22 06:49 | PN- Housestaff ---
Yandel Servin 12/22/17 0645: Subjective Follow-up For: A FIB Complaints: no complaints Tele-Events Since Last Visit: hr 177 with PVC Subjective: Patient has no complains. denies any palpitations/ chest pain/ dizziness. she is ambulating without any problems. But said she has some dry cough , not productive, and is not bothering her much. Review of Systems Constitutional: Reports: see HPI. Objective Last 24 Hrs of Vital Signs/I&O Vital Signs Date Time Temp Pulse Resp B/P B/P Pulse O2 O2 Flow FiO2 Mean Ox Delivery Rate 12/22 630 97.9 98 20 100/56 96 Nasal 1.0L Cannula 12/22 0000 Nasal 1.0L Cannula 12/21 2313 98.3 116 20 104/60 95 Nasal 2.0L Cannula 12/21 2102 130 104/60 12/21 1443 98.0 103 18 114/64 94 Room Air 12/21 08 113 118/60 12/21 0821 113 118/60 12/21 0800 92 Room Air Intake & Output 12/22 0812/22 0000 12/21 1600 Intake Total 200 160 720 Output Total 150 900 Balance 200 10 -180 Intake, IV 80 40 Intake, Oral 120 120 720 Number 1 Bowel Movements Output, Urine 150 900 Patient 238 lb Weight Weight Bed scale Measurement Method Physical Exam General Appearance: Alert, Oriented X3, Cooperative, No Acute Distress Cardiovascular: Regular Rate, No Murmurs Lungs: Clear to Auscultation, Normal Air Movement Abdomen: Normal Bowel Sounds, Soft, No Tenderness, No Hepatospenomegaly, No Masses Neurological: Normal Speech, Strength at 5/5 X4 Ext, Normal Tone, Sensation Intact Extremities: No Clubbing, No Cyanosis, No Edema, Normal Pulses, No Tenderness/ Swelling Current Medications: Current Medications Sig/Roxanne Start time Last Medication Dose Route Stop Time Status Admin Acetaminophen 650 MG ONCE ONE 12/22 0115 DC 12/22 PO 12/22 0116 0111 Amiodarone HCl 400 MG BID 12/20 1030 AC 12/22 PO 08 Amitriptyline HCl 25 MG QPM 12/21 2100 AC 12/21 PO 210 Apixaban 5 MG BID 12/20 0900 AC 12/22 PO 0832 Cholecalciferol 4,000 IU DAILY 12/20 899 AC 12/22 PO 0831 Diltiazem HCl 125 MG Q24H 12/22 1300 CAN Sodium Chloride 100 ML IV Diltiazem HCl 60 MG Q6 12/22 1200 AC 12/22 PO 1132 Diltiazem HCl 125 MG Q12H 12/21 2200 DC 12/21 Sodium Chloride 100 ML IV 2206 Diltiazem HCl 125 MG Q12H 12/21 0100 DC 12/21 Sodium Chloride 100 ML IV 12/21 2159 1255 Levothyroxine Sodium 0.175 MG DAILY AC 12/20 0700 AC 12/22 PO 0552 Magnesium Oxide 400 MG DAILY 12/20 0900 AC 12/22 PO 0832 Melatonin 3 MG DAILY NEEDED 12/21 1545 AC 12/21 PO 2102 Metoprolol Tartrate 50 MG BID 12/20 899 AC 12/22 PO 0835 Prochlorperazine 10 MG TID PRN 12/19 2245 AC PO Tiotropium [place] 1 PUF DAILY 12/21 09 AC 12/22 INH 0831 Assessment/Plan Assessment: Ms. Martinez is a 76-year-old female with a past medical history of atrial fibrillation treated with cardioversion on November 14, 2017, presented to the hospital with dizziness and was diagnosed with atrial fibrillation with rapid ventricular rate. She also has a past medical history of cyclical vomiting syndrome on amitriptyline; and a restrictive and obstructive mixed lung pattern, without an active ILD. she is currently on Cardizem, and metoprolol, amiodarone for Rate control and Eliquis for anticoagulation. Problem List: 1. Atrial fibrillation with RVR Patient came with history of dizziness and was found to have atrial fibrillation with rapid ventricular rate was started on Cardizem and amiodarone and metoprolol. Her heart rate is not controlled with the following medications. .Currently the heart rate is still running in 100s. cardizem dose tapered to 5ml/hr and then to P.o cardizem 60 mg, 6th hourly No active pulmonary symptoms. Continue Cardizem, amiodarone, metoprolol , eliquison current doses and observe heart rate. Cardiology consult advised electrocardioversion on Tuesday , NPO starting today midnight. continuwe spiriva, head end elevation 2. Cyclic vomiting syndrome Patient has a history of cyclic vomiting syndrome for past couple of years and is on amitriptyline. Continue amitriptyline Pain Ratin Pain Location: na Pain Goal: Remain pain free Pain Plan: na Tomorrow's Labs & Rationales: cbc, bep, pt,aptt DVT/Prophylaxis: pharmacological Consulting Request: Consulting Specialty: Cardiology Meryl BARRIOS,Deirdre 12/22/17 0933: Attending MD Review Statement Attending Statement Attending MD Statement: examined this patient, discuss w/resident/PA/LAB[employer]ER [employer] SINKING, agreed w/resident/PA/LABORER SHAFT SINKING, reviewed EMR data (avail), discussed with nursing, discussed with case mgmt, reviewed images Attending Assessment/Plan: Overall patient is feeling well. She understands that she scheduled for cardioversion in a.m. We spoke to Kunal Sheth MD and we are going to start her on Cardizem p.o. every 6 and transition the IV to off. She remains on anticoagulation. Her mixed obstructive and restrictive lung disease is stable and will put in a PT eval to get her out of bed. She is also being Amio loaded for refractory A. fib.
--- NOTE | 2017-12-22 08:37 | PN- Cardiology ---
Subjective Subjective: Telemetry reviewed. Atrial fibrillation with ventricular rate around 90. Patient feels well. Awaits INDY guided cardioversion under the umbrella of amiodarone tomorrow Objective Vital Signs and I&Os Vital Signs Date Time Temp Pulse Resp B/P B/P Pulse O2 O2 Flow FiO2 Mean Ox Delivery Rate 12/22 630 97.9 98 20 100/56 96 Nasal 1.0L Cannula 12/22 0000 Nasal 1.0L Cannula 12/21 2313 98.3 116 20 104/60 95 Nasal 2.0L Cannula 12/21 210 130 104/60 12/21 1443 98.0 103 18 114/64 94 Room Air Intake & Output 12/22 1600 12/22 0812/22 0000 12/21 1600 12/21 0000 Intake Total 200 160 720 180 120 Output Total 150 900 300 Balance 200 10 -180 180 -180 Intake, IV 80 40 80 20 Intake, Oral 120 120 720 100 100 Number 1 1 Bowel Movements Output, Urine 150 900 300 Patient 238 lb 249 lb Weight Weight Bed scale Bed scale Measurement Method Physical Exam: On general exam she is comfortable resting in bed Head normocephalic atraumatic Eyes sclera anicteric conjunctiva showed no pallor extraocular muscles were normal Neck no jugular venous distention no thyroid masses no palpable nodes Chest lungs were clear bilaterally Heart irregular rhythm with a ventricular rate around 94 Abdomen protuberant soft nontender no organomegaly Extremities no clubbing cyanosis or edema Neurological no gross motor or sensory deficit Current Medications: Current Medications Sig/Roxanne Start time Last Medication Dose Route Stop Time Status Admin Acetaminophen 650 MG ONCE ONE 12/22 0115 DC 12/22 PO 12/22 011 0111 Amiodarone HCl 400 MG BID 12/20 1030 AC 12/21 PO 210 Amitriptyline HCl 10 MG QPM 12/21 2100 CAN PO Amitriptyline HCl 25 MG QPM 12/21 2100 AC 12/21 PO 210 Apixaban 5 MG BID 12/20 899 AC 12/21 PO 2101 Cholecalciferol 4,000 IU DAILY 12/20 899 AC 12/21 PO 08 Diltiazem HCl 125 MG Q24H 12/22 1300 AC Sodium Chloride 100 ML IV Diltiazem HCl 125 MG Q12H 12/21 2200 DC 12/21 Sodium Chloride 100 ML IV 220 Diltiazem HCl 125 MG Q12H 12/21 0100 DC 12/21 Sodium Chloride 100 ML IV 12/219 1255 Levothyroxine Sodium 0.175 MG DAILY AC 12/20 699 AC 12/22 PO 0552 Magnesium Oxide 400 MG DAILY 12/20 899 AC 12/21 PO 0821 Melatonin 3 MG DAILY NEEDED 12/21 1545 AC 12/21 PO 210 Metoprolol Tartrate 50 MG BID 12/20 899 AC 12/21 PO 210 Prochlorperazine 10 MG TID PRN 12/19 2245 AC PO Tiotropium [place] 1 PUF DAILY 12/21 09 AC 12/21 INH 1000 Results Last 48 Hrs of Labs/Mics: Laboratory Tests 12/21/17 0645: CBC w Diff NO MAN DIFF REQ, RBC 5.06, MCV 79.8 L, MCH 25.7 L, MCHC 32.2 L, RDW 15.7 H, MPV 9.9, Gran % 67.8, Lymphocytes % 21.3, Monocytes % 8.2, Eosinophils % 2.3, Basophils % 0.4, Absolute Granulocytes 8.6 H, Absolute Lymphocytes 2.7, Absolute Monocytes 1.0 H, Absolute Eosinophils 0.3, Absolute Basophils 0.1 Assessment/Plan Assessment/Plan In summary this 76-year-old female has a following problems 1. Atrial fibrillation with rapid ventricular response. She recently had an episode that required INDY cardioversion. She had maintained sinus rhythm and Eliquis was continued for stroke prevention. 2. Cyclical vomiting syndrome on amitriptyline 3. GERD 4. Hypothyroidism TSH is normal She is on IV diltiazem, amiodarone and Eliquis. She could be transitioned to oral diltiazem. Electrical cardioversion scheduled tomorrow. Detailed discussion held with her and the son wanted to be informed of all the options. I have indicated to him that there is a high probability that the cardioversion will work and she will maintain sinus rhythm while on amiodarone. She will need amiodarone for the best chance of maintaining sinus rhythm. If she cannot use this medication or she reports atrial fibrillation and ablate and base strategy of AV julianne ablation and and pacemaker placement might be performed to atrial fibrillation pulmonary vein isolation procedure because of her age and risk of the latter procedure. She can be transitioned to p.o. diltiazem using diltiazem 60 mg p.o. every 6 hours. Decrease IV diltiazem to 5 mg an hour. If after 3 hours of ventricular rate is less than 100 we can discontinue IV diltiazem.. Detailed discussion was held with house staff and with interventional echocardiography to arrange for timing of INDY Continue telemetry? Yes
--- NOTE | 2017-12-22 13:47 | Discharge Summary ---
Visit Information Visit Dates Admission Date: 12/19/17 Discharge Date: 12/24/17 Hospital Course Course Attending Physician: Meryl BARRIOS,Deirdre Elliott Primary Care Physician: Gustavo Chung MD Consulting Request: 1 Consulting Specialty: Cardiology Consulting Request: 2 Consulting Specialty: Pulmonary Disease Hospital Course: Ms Noe is 76 year old woman with past medical history of atrial fibrilliation diagnosed and treeated with cardioversion on 11/14 on eliquis ,hypothyroidism, cyclic vomiting syndrome, SVT, GERD, was brought to the ER after she was found to have a rapid heart rate. She was diagnosed with atrial fibrillation and was started on cardizem drip, Metoprolol and eliquis , which failed to control her heart rate. AMiodarone 400 mg bid was added as Cardizem was lowering her BP. Cardizem was weaned off and Electrical cardioversion was done due to Failure to Pharmacologically control the heart rate. AMiodarone is decreased to 200mg od 3 days after Cardioversion. Patient will wear a fitbit to watch for any future increase in heart rate, as she is asymptomatic during RVR with Afib. Follow up with cardiology outpatient after 1 week of discharge. Complications: none Allergies: Coded Allergies: No Known Allergies (11/11/17) Significant Procedures: cardioversion Pertinent Lab Results: No abnormal labs. Anion Gap 15, Estimated GFR > 60, BUN/Creatinine Ratio 25.6 H, Glucose 140 H, Calcium 9.8, Total Bilirubin 0.3, Direct Bilirubin 0.3, AST 19, ALT 24, Alkaline Phosphatase 66, Troponin I 0.02, Total Protein 7.5, Albumin 4.1, Amylase 31, Lipase 86, PT 16.8 H, INR 1.53 H, APTT 33, CBC w Diff NO MAN DIFF REQ, RBC 5.52 H, MCV 79.6 L, MCH 26.2 L, MCHC 32.9 L, RDW 16.0 H, MPV 9.3, Gran % 60.6, Lymphocytes % 28.9, Monocytes % 7.5, Eosinophils % 1.5, Basophils % 1.5, Absolute Granulocytes 9.3 H, Absolute Lymphocytes 4.4 H, Absolute Monocytes 1.1 H, Absolute Eosinophils 0.2, Absolute Basophils 0.2 Disposition Summary Disposition Principal Diagnosis: Atrial fibrillation with rapid ventricular rate refractory to pharmacologic treatment Additional Diagnosis: Cyclical vomitting syndrome GERD Hypothyroidism Discharge Disposition: home or self care Discharge Instructions General Discharge Information Code Status: Do Not Intubate Patient's Diet: Regular Patient's Activity: As tolerated Follow-Up Instructions/Appts: Follow-up with PCP within 1 week of discharge Medications at Discharge Discharge Medications: Continue taking these medications: Cholecalciferol (Vitamin D3) (Vitamin D3) 4,000 UNIT CAPSULE 1 Capsule ORAL DAILY Comments: Last Taken: 12/24/17 Time: 9:00 AM Levothyroxine Sodium (Levothyroxine Sodium) 175 MCG TABLET 1 Tablet ORAL DAILY Comments: Last Taken: 12/24/17 Time: 7:00 AM Amitriptyline HCl (Amitriptyline HCl) 25 MG TABLET 1 Tablet ORAL Every night Comments: Last Taken: 12/23/17 Time: 9:00 PM Magnesium Oxide (Magnesium Oxide) 400 MG TABLET 1 Tablet ORAL DAILY Comments: Last Taken: 12/24/17 Time: 9:00 AM Multivit-Min/FA/Lycopen/Lutein (Centrum Silver Tablet) 0.4 MG-300 MCG-250 MCG TABLET 1 Tablet ORAL DAILY Comments: NOT GIVEN Cyanocobalamin (Vitamin B-12) (Cyanocobalamin Injection) 1,000 MCG/ML VIAL 1 Milliliters INTRAMUSC ONCE A MONTH Qty = 1 Comments: NOT GIVEN Prochlorperazine Maleate (Compazine) 10 MG TABLET 1 Tablet ORAL THREE TIMES DAILY as needed for NAUSEA Qty = 20 Comments: NOT GIVEN WHILE IN HOSPITAL Mometasone/Formoterol (Dulera 100 Mcg/5 Mcg Inhaler) 100 MCG-5 MCG/ACTUATION HFA.AER.AD 1 Puff Inhale through mouth TWICE DAILY Comments: NOT GIVEN IN HOSPITAL Tiotropium [place] (Spiriva) 18 MCG CAP.W.DEV 1 Capsule Inhale through mouth DAILY Comments: Last Taken: 12/24/17 Time: 9:00 AM Apixaban (Eliquis) 5 MG TABLET 5 Milligram ORAL TWICE DAILY Qty = 30 Instructions: . Comments: Last Taken: 12/24/17 Time: 9:00 AM Start taking the following new medications: Amiodarone (Cordarone) 200 MG TAB 1 Tablet ORAL DAILY Qty = 90 No Refills Instructions: plz take 2 tab twice a day for 3 day(until 12/26/17) f/b 1 tab daily. Comments: Last Taken: 12/24/17 Time: 9:00 AM The following medications have been changed: Old: Metoprolol Tartrate (Metoprolol Tartrate) 50 MG TABLET 1 Tablet ORAL Every Morning Qty = 30 New: Metoprolol Tartrate (Metoprolol Tartrate) 50 MG TABLET 1 Tablet ORAL TWICE DAILY Qty = 30 Instructions: . Comments: Last Taken: 12/24/17 Time: 9:00 AM Copies To: Erika BARRIOS,Gerson; Juliet BARRIOS,Gustavo Ruiz
[2017-12-22 14:00] VITALS: BP 104/64
[2017-12-22 22:46] VITALS: BP 102/80
--- NOTE | 2017-12-23 05:37 | PN- Housestaff ---
Yandel Servin 12/23/17 0537: Subjective Follow-up For: A fib Complaints: pain scale (0-10) (dizziness) Tele-Events Since Last Visit: HR - 130 Subjective: patient said her heart rate went up for a little bit last night. felt a little dizzy at that time. Review of Systems Constitutional: Reports: see HPI. Objective Last 24 Hrs of Vital Signs/I&O Vital Signs Date Time Temp Pulse Resp B/P B/P Pulse O2 O2 Flow FiO2 Mean Ox Delivery Rate 12/23 2228 97.9 100 18 94 Room Air 12/23 2048 101 98/60 12/23 2045 101 98/60 12/23 204 101 98/60 12/23 1408 98.1 91 18 110/70 91 Room Air 12/23 0820 128 106/82 12/23 0820 128 106/82 12/23 0643 128 106/82 12/23 0600 97.8 124 22 104/62 95 Room Air Intake & Output 12/24 0800 12/24 0000 12/23 1600 Intake Total 400 700 Output Total 850 Balance 400 -150 Intake, IV 300 Intake, Oral 400 400 Output, Urine 850 Patient 244 lb Weight Weight Bed scale Measurement Method Physical Exam General Appearance: Alert, Oriented X3, Cooperative, No Acute Distress Cardiovascular: Regular Rate, No Murmurs Lungs: Clear to Auscultation, Normal Air Movement Abdomen: Normal Bowel Sounds, Soft, No Tenderness, No Hepatospenomegaly, No Masses Neurological: Normal Speech, Strength at 5/5 X4 Ext, Normal Tone, Sensation Intact Extremities: No Clubbing, No Cyanosis, No Edema, Normal Pulses, No Tenderness/ Swelling Assessment/Plan Assessment: 76 F who came for Atrial fibrillation with rapid ventricular response. She had an episode that required INDY cardioversion on 11/15/17 . She had maintained sinus rhythm and Eliquis was continued for stroke prevention and then presented to the hospital for dizziness. Problem List: 1. Atrial fibrillation with RVR The patient underwent successful cardioversion today without complication. - Continue amiodarone 400 mg p.o. twice daily for 3 more days and then transition to 200 mg p.o. daily. -Continue the Metoprolol and discontinue Cardizem. -Continue Eliquis for anticoagulation . -Monitor heart rate on a Fitbit device at home . - waiting for PT evaluation and can be discharged if agreed by PT - Follow-up with outpatient Cardiology within 1 week of discharge. 2. Cyclic vomiting syndrome continue amitryptiline Pain Ratin Pain Location: - Pain Goal: Remain pain free Pain Plan: - Tomorrow's Labs & Rationales: none Consulting Request: Consulting Specialty: Cardiology Deirdre Sheth MD 12/23/17 1037: Attending MD Review Statement Attending Statement Attending MD Statement: examined this patient, discuss w/resident/PA/CHEMIST ASSISTANT, agreed w/resident/PA/CHEMIST ASSISTANT, reviewed EMR data (avail), discussed with nursing, discussed with case mgmt Attending Assessment/Plan: Patient is doing well. She status post cardioversion today and is now in normal sinus rhythm. As per the post partum nurse, we are going to stop the Cardizem. We can keep the amiodarone and metoprolol. PT has cleared her for home PT and she is adamantly opposed to going to rehab so will follow closely.
[2017-12-23 06:00] VITALS: BP 104/62
[2017-12-23 07:54] LABS: ABSOLUTE BASOPHIL COUNT 0 /CUMM (0.0-0.2); ABSOLUTE EOSINOPHIL COUNT 0.4 /CUMM (0.0-0.7); ABSOLUTE GRANULOCYTE CT 6.2 /CUMM (1.4-6.5); ABSOLUTE LYMPH COUNT 2.7 /CUMM (1.2-3.4); ABSOLUTE MONOCYTE COUNT 0.9 /CUMM (0.10-0.60); BASOPHIL % 0.4 % (0.0-2.0); EOSINOPHIL % 3.8 % (0-5); HEMATOCRIT 38.2 % (37-47); MEAN CORPUSCULAR HGB 26.1 PG (27.0-31.0); MEAN CORPUSCULAR HGB CONC 32.8 G/DL (33.0-37.0); MEAN CORPUSCULAR VOLUME 79.6 FL (81.0-99.0); MEAN PLATELET VOLUME 10.2 FL (7.4-10.4); RBC DISTRIBUTION WIDTH 16.3 % (11.5-14.5); WHITE BLOOD CELL COUNT 10.2 /CUMM (4.8-10.8)
[2017-12-23 08:18] LABS: PT 18.8 SEC (9.4-12.5); PTT 31 SEC (25-37)
[2017-12-23 09:16] LABS: PLATELET COUNT 263 /CUMM (130-400)
[2017-12-23] MEDS ORDERED: AMIODARONE HCL200 M1 PO ×2 (10:57→11:03)
--- NOTE | 2017-12-23 11:36 | Proc Note Cardiology ---
Cardiology Procedure Procedure Date: 12/23/17 Cardiology Procedure(s): electrical cardioversion Pre-Operative Diagnosis: Atrial fibrillation Post-Operative Diagnosis: Sinus rhythm Estimated Blood Loss: none Anesthesia: Propofol by anesthesiology Procedure Findings: Initial cardioversion attempt with 100 J of synchronized energy failed to restore sinus rhythm. Another attempt with 200 J of synchronized energy successfully restored sinus rhythm. Shen James MD [facility]
--- NOTE | 2017-12-23 11:40 | PN- Cardiology ---
Subjective Subjective: Patient is doing well today with no new complaints. I performed a successful cardioversion earlier today. Objective Vital Signs and I&Os Vital Signs Date Time Temp Pulse Resp B/P B/P Pulse O2 O2 Flow FiO2 Mean Ox Delivery Rate 12/24 819 128 106/82 / 0820 128 106/82 12/23 0643 128 106/82 / 0600 97.8 124 22 104/62 95 Room Air 12/23 0015 104 90/62 12/22 2246 97.9 113 18 102/80 91 Room Air 12/22 2052 94 110/58 / 2050 94 110/58 12/22 1713 110/58 / 1400 97.6 94 20 104/64 94 Intake & Output 12/23 1600 12/23 0000 12/22 1600 12/22 0000 Intake Total 50 400 450 200 160 Output Total 675 400 600 150 Balance -625 0 -150 200 10 Intake, IV 50 80 40 Intake, Oral 50 400 400 120 120 Number 2 1 Bowel Movements Output, Urine 675 400 600 150 Patient 247 lb 238 lb Weight Weight Bed scale Bed scale Measurement Method Physical Exam: General: no apparent distress. Alert. Eyes: No obvious scleral icterus. HEENT: No jugular venous distention or abnormal jugular venous pulsations. Cardiovascular: Normal intensity S1/S2. Irregular Respiratory: Lungs clear to auscultation bilaterally. Abdomen: Soft, nontender with no guarding or rebound tenderness. Musculoskeletal: No clubbing or cyanosis noted Skin: warm Neurologic: No gross focal deficits noted Current Medications: Current Medications Sig/Roxanne Start time Last Medication Dose Route Stop Time Status Admin Acetaminophen 650 MG ONCE ONE 12/22 2214 DC 12/22 PO 12/22 Amiodarone HCl 400 MG BID 12/20 1030 AC 12/23 PO 819 Amitriptyline HCl 25 MG QPM 12/21 2100 AC 12/22 PO 2049 Apixaban 5 MG BID 12/20 899 AC 12/23 PO 08 Cholecalciferol 4,000 IU DAILY 12/20 899 AC 12/23 PO 08 Diltiazem HCl 125 MG Q24H 12/22 1300 CAN Sodium Chloride 100 ML IV Diltiazem HCl 60 MG Q6 12/22 1200 DC 12/23 PO 0643 Levothyroxine Sodium 0.175 MG DAILY AC 12/20 0700 AC 12/23 PO 0643 Magnesium Oxide 400 MG DAILY 12/20 0900 AC 12/23 PO 0820 Melatonin 3 MG .STK-MED ONE 12/22 2341 DC PO 12/22 2342 Melatonin 3 MG DAILY NEEDED 12/21 1545 AC 12/22 PO 2356 Metoprolol Tartrate 50 MG BID 12/20 09 AC 12/23 PO 0820 Prochlorperazine 10 MG TID PRN 12/19 2245 AC PO Tiotropium [place] 1 PUF DAILY 12/21 09 AC 12/23 INH 0821 Results Last 48 Hrs of Labs/Mics: Laboratory Tests 12/23/17 0645: Anion Gap 11, Estimated GFR > 60, BUN/Creatinine Ratio 33.3 H, PT 18.8 H, INR 1.72 H, APTT 31, CBC w Diff NO MAN DIFF REQ, RBC 4.80, MCV 79.6 L, MCH 26.1 L , MCHC 32.8 L, RDW 16.3 H, MPV 10.2, Gran % 61.0, Lymphocytes % 26.1, Monocytes % 8.7, Eosinophils % 3.8, Basophils % 0.4, Absolute Granulocytes 6.2, Absolute Lymphocytes 2.7, Absolute Monocytes 0.9 H, Absolute Eosinophils 0.4, Absolute Basophils 0 Recent Imaging Studies: Telemetry tracings initially show atrial fibrillation and following the cardioversion shows sinus rhythm Cardioversion procedure note Initial cardioversion attempt with 100 J of synchronized energy failed to restore sinus rhythm. Another attempt with 200 J of synchronized energy successfully restored sinus rhythm. Assessment/Plan Assessment/Plan 1. Atrial fibrillation with rapid ventricular response. She recently had an episode that required INDY cardioversion. She had maintained sinus rhythm and Eliquis was continued for stroke prevention. 2. Cyclical vomiting syndrome on amitriptyline 3. GERD 4. Hypothyroidism TSH is normal 5. Status post repeat cardioversion 12/23/2017 The patient underwent successful cardioversion today without complication. Continue amiodarone 400 mg p.o. twice daily for 3 more days and then transition to 200 mg p.o. daily. Continue the beta-brandyn and discontinue Cardizem. Continue anticoagulation without interruption. Agree with obtaining Fitbit device at home for continued heart rate monitoring. Follow-up in our office within 1 week of discharge. Shen James MD [facility] Continue telemetry? No
[2017-12-23 14:08] VITALS: BP 110/70
[2017-12-23 20:49] VITALS: BP 98/60
[2017-12-24 07:00] VITALS: BP 110/60
[2017-12-24 08:29] VITALS: BP 112/62
[2017-12-24] MEDS ORDERED: AMIODARONE HCL200 M1 PO ×2 (09:58→10:20)
--- NOTE | 2017-12-24 10:03 | Patient Discharge Instructions ---
Discharge Instructions General Discharge Information You were seen/treated for: Atrial Fibrillation Watch for these problems: Please return to the ER in case of any chest pain. shortness of breath,or palpitations. Special Instructions: Please follow up with your PCP and Life Consultant within a week after discharge. Diet Continue normal diet: Yes Recommended Diet: Heart Healthy Activity Full Activity/No Limits: Yes Activity Self Limited: Yes Acute Coronary Syndrome Inclusion Criteria At DC or during hospital stay patient has or had the following: ACS DIAGNOSIS No Discharge Core Measures Meds if any: Prescribed or Continued at Discharge Meds if any: NOT Prescribed or Continued at Discharge Congestive Heart Failure Inclusion Criteria At DC or during hospital stay patient has or had the following: CHF DIAGNOSIS No Discharge Core Measures Meds if any: Prescribed or Continued at Discharge Meds if any: NOT Prescribed or Continued at Discharge Cerebrovascular accident Inclusion Criteria At DC or during hospital stay patient has or had the following: CVA/TIA Diagnosis No Discharge Core Measures Meds if any: Prescribed or Continued at Discharge Meds if any: NOT Prescribed or Continued at Discharge Venous thromboembolism Inclusion Criteria VTE Diagnosis No VTE Type NONE VTE Confirmed by (Test) NONE Discharge Core Measures - Per Current guidelines, there needs to be overlap - treatment for the first 5 days of Warfarin therapy. - If discharged on Warfarin prior to 5 days of - overlap therapy, the patient will need to be - assessed for post discharge needs including - *Post discharge parental anticoagulation - *Warfarin and/or parental anticoagulation education - *Follow up date to check INR post discharge At least 5 days overlap therapy as Inpatient No Meds if any: Prescribed or Continued at Discharge Note: Overlap Therapy is Warfarin and Anticoagulant Meds if any: NOT Prescribed or Continued at Discharge
--- NOTE | 2017-12-24 10:12 | PN- Housestaff ---
Subjective Follow-up For: Afib with RVR Tele-Events Since Last Visit: NSR 84 - 89 (after conversion yesterday) Subjective: Pt was seen and examined sitting in chair. No events overnight. She went for ablation yesterday and her Afib was converted to sinus rhythm. She has no other complaints. She is waiting to go home. Review of Systems Constitutional: Reports: see HPI. Objective Last 24 Hrs of Vital Signs/I&O Vital Signs Date Time Temp Pulse Resp B/P B/P Pulse O2 O2 Flow FiO2 Mean Ox Delivery Rate 12/24 828 94 112/62 12/25 827 94 112/62 Physical Exam General Appearance: Alert, Oriented X3, Cooperative Skin Temp/Moisture Exam: Warm/Dry Sepsis Skin Exam (color): Normal for Ethnicity HEENT: Atraumatic, PERRLA, EOMI Neck: Supple Cardiovascular: Regular Rate, Normal S1, Normal S2 Lungs: Clear to Auscultation Abdomen: Normal Bowel Sounds, Soft, No Tenderness Neurological: Normal Speech Current Medications: Current Medications Sig/Roxanne Start time Last Medication Dose Route Stop Time Status Admin Amiodarone HCl 200 MG BID 12/26 2099 DCD PO 01/05 09 Amiodarone HCl 400 MG BID 12/23 2099 DCD 12/24 PO 12/26 0901 0828 Amitriptyline HCl 25 MG QPM 12/21 2100 DCD 12/23 PO 2046 Apixaban 5 MG BID 12/20 899 DCD 12/24 PO 0829 Cholecalciferol 4,000 IU DAILY 12/20 899 DCD 12/24 PO 0829 Levothyroxine Sodium 0.175 MG DAILY AC 12/20 699 DCD 12/24 PO 0644 Magnesium Oxide 400 MG DAILY 12/20 899 DCD 12/24 PO 0829 Melatonin 3 MG DAILY NEEDED 12/21 1545 DCD 12/23 PO 2214 Metoprolol Tartrate 50 MG BID 12/20 899 DCD 12/24 PO 0829 Prochlorperazine 10 MG TID PRN 12/19 2245 DCD PO Tiotropium [place] 1 PUF DAILY 12/21 899 DCD 12/24 INH 0830 Assessment/Plan Assessment: Assessment/Plan: 76 F who came for Atrial fibrillation with rapid ventricular response. She had an episode that required INDY cardioversion on 11/15/17 . She had maintained sinus rhythm and Eliquis was continued for stroke prevention and then presented to the hospital for dizziness. 1. Afib with RVR Patient underwent successful cardioversion yesterday. Now in sinus rhythm. Continue Metoprolol, D/C Cardizem. Continue Eliquis for AC. Follow cardio recs for amiodarone dosing. Monitor HR at home with a fit bit as recommended previously. Followup with cardiology within 1 week of today. 2. Cyclical Vomitting Syndrome Continue Amitryptiline Follow up with Dr. Milner if med not agreeable Pt ready for discharge. Problem List: 1. Atrial fibrillation with RVR Pain Ratin Pain Location: NA Pain Goal: Remain pain free Pain Plan: None Tomorrow's Labs & Rationales: None Consulting Request: Consulting Specialty: Cardiology
--- NOTE | 2017-12-24 12:48 | PN- Att Addend ---
Attending Addendum Attending Brief Note Patient seen and examined, overall feels well. Denies any complaints. Heart rate well controlled. Blood pressure stable. 76-year-old female with rapid atrial fibrillation requiring INDY cardioversion now rate controlled. Has been started on amiodarone. Please follow cardiology recommendations for amiodarone dosing. Patient otherwise stable for discharge home today. Has worked with physical therapy and cleared to go home with services.
== END 2017-12-24 15:50 | disposition home health service (06) | DRG 309 ==
LOC: ERH 19:22 → ERHI 20:55 → 1NO 20:55 → ERHI 12-20 08:32 → ENRESERV 12-20 13:14 → ENTRNSPT 12-20 14:17 → EDTRNSPTSTS 12-20 14:28 → EDTRNSPT 12-20 14:28 → CMPTRNSPT 12-20 14:48 → 1NO 12-20 14:49 → ENPENDDIS 12-24 10:25 → ENTRNSPT 12-24 15:43 → EDTRNSPT 12-24 15:49 → EDTRNSPTSTS 12-24 15:49 → 1NO 12-24 15:50 → CMPTRNSPT 12-24 16:00
PROVIDERS: Hospitalist; Internal Medicine; Pediatrics; Student in an Organized Health Care Education/Training Program
PROC: 5A2204Z Restoration of Cardiac Rhythm, Single (ICD-10-PCS; principal; 2017-12-23)
DX: I48.91 Unspecified atrial fibrillation (principal); Z68.41 Body mass index [BMI] 40.0-44.9, adult; E03.9 Hypothyroidism, unspecified; G43.A0 Cyclical vomiting, in migraine, not intractable; R00.0 Tachycardia, unspecified; Z79.01 Long term (current) use of anticoagulants; J44.9 Chronic obstructive pulmonary disease, unspecified; E66.01 Morbid (severe) obesity due to excess calories; Z90.49 Acquired absence of other specified parts of digestive tract; Z98.51 Tubal ligation status; Z90.710 Acquired absence of both cervix and uterus; Z98.84 Bariatric surgery status; K21.9 Gastro-esophageal reflux disease without esophagitis; Z66 Do not resuscitate
CPT/HCPCS: 1NSP; ERO; 36592; 82436; 93005; 93010; 96374; 96376; 97110-GO; 97116-GO; 97161-GP; 97530-GO